=== PATIENT | male | born 1945 | race Caucasian/White ===

== ENCOUNTER 2018-03-02 08:48 | Inpatient (IN) | payer OTHER, MEDICARE ==
[2018-03-02 09:00] VITALS: BMI 32.1
--- NOTE | 2018-03-02 09:02 | PDOC ---
History of Present Illness - General Stated Complaint: Weakness Time Seen by Provider: 03/02/18 08:52 History Source: Patient, EMS, Significant Other Exam Limitations: No Limitations - History of Present Illness Initial Comments: 03/02/18 08:56 72YOM with h/o pre-diabetes and gout, who was BIBEMS from home where his girlfriend found him on the floor next to his bed with slightly labored breathing at around 7 am. History is difficult to obtain because the patient is confused about timing, and his girlfriend is at bedside to corroborate the story. He has been feeling ill for the past day or so, with malaise, generalized weakness, SOB; took Mucinex yesterday afternoon and within a couple of hours was feeling much worse. Yesterday night at about 10-11 pm the girlfriend noticed that the patient was trying to come back to bed from the bathroom, and could not get himself into bed initially. The patient states he was feeling weak, both legs and both arms. He was reportedly eventually able to get into the bed, but at some point in the cook helper the patient tried to stand up from bed again to use the bathroom, his legs gave out from under him, and he ended up on the floor with his head between the bed and the night stand. He denies LOC, hitting his head, hurting his neck, or otherwise injuring himself at all; in fact, he is denying having fallen. At 7 am the was awakened by labored breathing and she found him laying on the floor with a puddle of urine next to him, with labored breathing. She helped him up and they called 911. The patient states that after the fall, he had mildly decreased sensation on the RLE, but this has since resolved. He denies any pain to any portion of his body. States he has been feeling warm for the past 5 months but this is not new. States he only feels generally weak, otherwise denies any symptoms at all. Past History - Past Medical History Allergies/Adverse Reactions: Allergies Allergy/AdvReac Type Severity Reaction Status Date / Time No Known Allergies Allergy Verified 03/02/18 08:52 Home Medications: Ambulatory Orders Indomethacin 50 mg PO PRN 03/02/18 Review of Systems - Review of Systems Able to Perform ROS?: Yes Comments:: 03/02/18 09:09 GEN: generalized weakness, malaise, no fever, chills, or weight change HEENT: no ear pain, sore throat, vision change, or eye pain CV: no chest pain, palpitations, lightheadedness, syncope, or edema RESP: no cough, wheezing, or SOB GI: no abdominal pain, nausea, vomiting, diarrhea, constipation, or white/black/ bloody stool : no dysuria, hematuria, incontinence, retention, bleeding, or discharge MSK: no neck/back pain, muscle weakness/pain, or joint swelling/pain NEURO: RLE numbness (resolved), no headache, seizure, vertigo, imbalance, tingling, or focal weakness PSYCH: no substance use, no behavior change SKIN: no jaundice, no rash ROS otherwise negative except as noted in HPI *Physical Exam - Vital Signs Initial Vital Signs Temp Pulse Resp BP Pulse Ox 102.5 F H 70 18 149/77 91 L 03/02/18 08:50 03/02/18 08:50 03/02/18 08:50 03/02/18 08:50 03/02/18 08:50 - Physical Exam Comments: 03/02/18 09:11 GENERAL: a bit ill-appearing, flushed face, A/Ox4, no distress, answers questions appropriately, no outward e/o trauma HEENT: no obvious facial deformity, no cephalohematoma, no scalp laceration, no raccoon eyes, no proptosis, PERRLA, EOMI without pain, no nasal septal hematoma , no obvious CSF rhinorrhea, no epistaxis, no jaw malocclusion, no loose teeth, no ansari sign, no hemotympanum, no obvious CSF otorrhea, moist mucous membranes NECK/BACK: no midline ttp, no spinal stepoff or deformity, no hematoma, full ROM , neck supple CARDIOVASCULAR: regular rate/rhythm, normal S1S2, no MGR, strong peripheral pulses, capillary refill <2 seconds, extremities wwp, no edema CHEST WALL: no bruising, no costal ttp or stepoff or deformity LUNGS/RESPIRATORY: no respiratory distress, though slightly tachypneic in conversation GI/ABDOMEN: symmetric [id number], normoactive BS, soft, no ttp, no midline pulsatile masses : no CVA tenderness EXTREMITIES: no muscle atrophy, no acute deformity SKIN: warm and dry, no pallor, no jaundice, no rash, no bruising, no skin breakdown, no cuts, no lesions NEUROLOGICAL: NIHSS 2 only because BLE drift, GCS 15, CN II-XII grossly intact, 4/5 strength diffusely proximally, no facial droop, gait not tested, rectal exam with good tone NIH Stroke Scale - Last Known Well Date/Time & Onset Date Last Known Well: 03/02/18 Time Last Known Well: 22:00 - Initial Evaluation Level of consciousness: Alert Ask patient the month and their age: Answers both correctly Ask patient to open & close eyes; make fist and let go: Obeys both correctly Best gaze (horizontal eye movement): Normal Visual field testing: No visual field loss Facial paresis (Show teeth/raise eyebrows/close eyes tight): Normal symmetrical movement Motor Function: Left Arm: Normal Motor Function: Right Arm: Normal (extends arm 90 (or 45) degrees for 10 seconds without drift Motor Function: Left Leg: Drift Motor Function: Right Leg: Drift Limb Ataxia: No ataxia Sensory(Use pinprick test arms,legs,trunk,face/side to side): Normal Best language (Describe picture, name items, read sentences): No Aphasia Dysarthria (read several words): Normal articulation Extinction and Inattention: No abnormality - Total Score NIH Stroke Scale Score: 2 tPA Exclusion checklist 3-4.5h - Time Elapsed Date last known well: 03/02/18 Time last known well: 22:00 Elaspsed time: Day(s) and Hour(s) and -191 Minutes - Thrombolytic Therapy Candidate Is patient eligible for thrombolytic therapy: No - Exclusion Criteria 3-4.5 hr SBP greater than 185 or DBP greater than 110mmHg despite tx: No Recent IC/spinal surgery,head trauma or stroke<3mos.: No Hx IC hemorrhage, IC neoplasm, AV malformation or aneurysm: No Active internal bleeding: No Blding diathesis(low plt ct, inc PTT,INR>1.7 or use of NOAC): No Symptoms suggest subarachnoid hemorrhage: No CT demonstrates multilobar infarct(>1/3 cerebral hemiphere): No Arterial puncture at noncompressible site in previous 7 days: No Blood glucose concentration less than 50mg/dL (2.7mmol/L): No - Relative Exclusion Criteria 3-4.5 hr Life expectancy <1 yr or severe co-morbid illness: No : No Patient/family refused: No Rapid improvement: Yes Stroke severity too mild: Yes Recent acute MO (w/in previous 3 months): No Seizure at onset with postictal residual neuro impairments: No Major surgery or serious trauma w/in previous 14 days: No Recent GI or hemorrhage (w/in previous 21 days): No - Add'l Relative Exclusion 3-4.5 hr Age > 80: No Hx of both diabetes AND prior ischemic stroke: No Taking an oral anticoagulant regardless of INR: No NIHSS >25: No - Ineligibility reason(s) Reasons No tPA given: Outside of window - delayed arrival Heart Score/ECG Review #1 03/02/18 09:20 Sinus rhythm, rate 70, 1st degree AV block, RBBB, no ischemic ST-T changes. Critical Care Time/MDM Note - Medical Decision Making Note: 03/02/18 09:02 Pt p/w fall, generalized weakness, malaise. Initial Vital Signs Temp Pulse Resp BP Pulse Ox 102.5 F H 70 18 149/77 91 L 03/02/18 08:50 03/02/18 08:50 03/02/18 08:50 03/02/18 08:50 03/02/18 08:50 Exam: As noted in Physical Exam section. DDX IBNLT: influenza, other viral syndrome, PNA, bronchitis, UTI, cellulitis; could have had syncopal episode vs. seizure, injury suffered could be simple contusions, sprains/strains, bony injuries, internal organ contusions, ICH, facial bone or basilar skull fxr, etc. W/U ordered: Head and C-spine CT TX ordered: [facility] EKG: Reviewed; results as noted in ECG Review section. Laboratory Tests 03/02/18 03/02/18 03/02/18 08:58 08:58 08:58 WBC 5.3 RBC 3.48 L Hgb 11.8 Hct 34.3 L MCV 98.4 H MCH 33.9 H MCHC 34.5 RDW 14.7 Plt Count 127 L MPV 8.5 Absolute Neuts (auto) 4.1 Neutrophils % 78.1 Lymphocytes % 8.9 Monocytes % 12.0 H Eosinophils % 0.4 Basophils % 0.6 Nucleated RBC % 0 VBG pH POC VBG pCO2 POC VBG pO2 Mixed VBG HCO3 Sodium 136 Potassium 3.8 Chloride 106 Carbon Dioxide 25 Anion Gap 6 L BUN 15 Creatinine 1.1 Creat Clearance w eGFR > 60 Random Glucose 125 H Lactic Acid 1.5 Calcium 8.3 L Total Bilirubin 0.6 AST 31 ALT 31 Alkaline Phosphatase 193 H Creatine Kinase 119 CK-MB (CK-2) 2.4 Troponin I 0.87 H* Total Protein 6.8 Albumin 3.2 L Urine Color Urine Appearance Urine pH Ur Specific [place] Urine Protein Urine Glucose (UA) Urine Ketones Urine Blood Urine Nitrite Urine Bilirubin Urine Urobilinogen Ur Leukocyte Esterase Urine WBC (Auto) Urine RBC (Auto) Ur Epithelial Cells Influenza A (Rapid) Influenza B (Rapid) 03/02/18 03/02/18 03/02/18 09:03 09:03 09:05 WBC RBC Hgb Hct MCV MCH MCHC RDW Plt Count MPV Absolute Neuts (auto) Neutrophils % Lymphocytes % Monocytes % Eosinophils % Basophils % Nucleated RBC % VBG pH 7.43 H POC VBG pCO2 39.8 POC VBG pO2 33.7 Mixed VBG HCO3 25.9 H Sodium Potassium Chloride Carbon Dioxide Anion Gap BUN Creatinine Creat Clearance w eGFR Random Glucose Lactic Acid Calcium Total Bilirubin AST ALT Alkaline Phosphatase Creatine Kinase CK-MB (CK-2) Troponin I Cancelled Total Protein Albumin Urine Color Urine Appearance Urine pH Ur Specific [place] Urine Protein Urine Glucose (UA) Urine Ketones Urine Blood Urine Nitrite Urine Bilirubin Urine Urobilinogen Ur Leukocyte Esterase Urine WBC (Auto) Urine RBC (Auto) Ur Epithelial Cells Influenza A (Rapid) Positive A Influenza B (Rapid) Negative 03/02/18 09:10 WBC RBC Hgb Hct MCV MCH MCHC RDW Plt Count MPV Absolute Neuts (auto) Neutrophils % Lymphocytes % Monocytes % Eosinophils % Basophils % Nucleated RBC % VBG pH POC VBG pCO2 POC VBG pO2 Mixed VBG HCO3 Sodium Potassium Chloride Carbon Dioxide Anion Gap BUN Creatinine Creat Clearance w eGFR Random Glucose Lactic Acid Calcium Total Bilirubin AST ALT Alkaline Phosphatase Creatine Kinase CK-MB (CK-2) Troponin I Total Protein Albumin Urine Color Ltyellow Urine Appearance Clear Urine pH 6.0 Ur Specific [place] 1.015 Urine Protein 1+ H Urine Glucose (UA) Negative Urine Ketones 1+ H Urine Blood 2+ H Urine Nitrite Negative Urine Bilirubin Negative Urine Urobilinogen 4.0 e.u/dl Ur Leukocyte Esterase Negative Urine WBC (Auto) 1 Urine RBC (Auto) 2 Ur Epithelial Cells Rare Influenza A (Rapid) Influenza B (Rapid) Reassessment: Patient states feels a bit better after Ofirmev. I have placed order for IVF. RAD/CHEST X-RAY PORTABLE* Sepsis. Semierect portable chest x-ray. Comparison study. None. Patient is rotated to the left side. Cardiomegaly. Left lower lung zone obscured by the cardiac silhouette. No airspace opacities seen in the left upper lung zone, right lung. The right diaphragm is not effaced. No evidence of blunting of the right costophrenic angle. No pneumothorax, or large pleural effusion is seen. Impression. Cardiomegaly. Left lower lung zone obscured by the cardiac silhouette. No airspace opacities are seen in the left upper lung zone, right lung. No evidence of vascular congestive changes. CT/HEAD CT (STROKE) [id number] CT/CERVICAL SPINE CT W/O CONTR Status post fall with weakness CT scan of the head without intravenous contrast No prior is available for comparison. There is moderate volume loss, ventricular dilatation and periventricular chronic microvascular ischemic disease changes. No mass lesion, gross acute infarct or intracranial hemorrhage are identified. There is no shift of the midline structures The craniocervical junction appears unremarkable. Normal sized pituitary gland. Mild mucosal thickening in the maxillary antra with a small air-fluid level in the left. The mastoid air cells are well aerated and the calvarium is intact IMPRESSION: Moderate volume loss and ventricular dilatation without gross evidence of acute intracranial pathology. Correlate clinically to determine further evaluation and follow-up CT scan of the cervical spine without intravenous contrast Coronal and sagittal reconstruction images were obtained. There is straightening of the cervical spine. No gross fracture, subluxation or prevertebral soft tissue swelling is seen. No jumped facets are identified. C4-C5 mild degenerative disc disease with slightly prominent left anterior spondylosis. C5-C6 mild degenerative disc disease and mild anterior spondylosis Visualized portion of the airway appears unremarkable. No gross enlarged lymph nodes are identified. Multiple small to moderate-sized plaques at the left common carotid bifurcation and tiny plaque on the right. Lung windows at the thoracic inlet appear unremarkable. IMPRESSION : Straightening of the cervical spine. The alignment is satisfactory. No gross fracture or subluxation is seen. Mild degenerative disc disease at C4-C5 and C5- C6 level with anterior spondylosis and without gross evidence of disc herniation. Correlate clinically to determine further evaluation. Small to moderate size calcified plaque at the left common carotid bifurcation and tiny plaque on the right. 03/02/18 11:20 The Pt is unsafe for discharge at this time. They require further hospital observation, workup, and treatment. PCP is Margaret, goes to hospitalist. Microblog sent to [facility] for admission. Blank Decision to Admit order is placed per ED protocol. 03/02/18 11:40 I have spoken with Saji Yepez; patient admitted to Tele. Decision to Admit order corrected. Repeat troponin is 0.88. *DC/Admit/Observation/Transfer Diagnosis at time of Disposition: Influenza A, Fall from ground level, Elevated troponin - Discharge Dispostion Condition at time of disposition: Guarded Decision to Admit order: Yes - Referrals - Patient Instructions - Post Discharge Activity
[2018-03-02] MEDS ORDERED: ACETAMINOPHEN 1000 MG/100 ML VIAL (NON FORMULARY) IVPB ONE (09:11)
[2018-03-02] MEDS ORDERED: ACETAMINOPHEN INJECTION 100 ML IVPB ONE (09:12)
[2018-03-02 09:18] LABS: VENOUS PC02 39.8 mmHg (38-52); VENOUS PH 7.43 (7.32-7.42)
[2018-03-02 09:19] LABS: VENOUS PO2 33.7 mmHg (28-48)
[2018-03-02 09:27] LABS: BASO % 0.6 % (0-2.0); EOS % 0.4 % (0-4.5); HEMATOCRIT 34.3 % (35.4-49); HEMOGLOBIN 11.8 GM/dL (11.7-16.9); LYMPH % 8.9 % (8-40); MCH 33.9 pg (25.7-33.7); MCHC 34.5 g/dl (32.0-35.9); MEAN CELL VOLUME 98.4 fl (80-96); MEAN PLT VOLUME 8.5 fl (7.5-11.1); NEUT % 78.1 % (42.8-82.8); PLATELET COUNT 127 K/MM3 (134-434); RBC 3.48 M/mm3 (4.00-5.60); RDW 14.7 % (11.9-15.9); WHITE BLOOD COUNT 5.3 K/mm3 (4.0-10.0)
[2018-03-02 09:31] LABS: URINE APPEARANCE CLEAR; URINE BILIRUBIN NEGATIVE (<2.0 mg/dL); URINE COLOR LTYELLOW; URINE GLUCOSE (UA) NEGATIVE (NEGATIVE); URINE KETONE 1+ (NEGATIVE); URINE LEUK ESTERASE NEGATIVE (NEGATIVE); URINE NITRITE NEGATIVE (NEGATIVE); URINE PROTEIN 1+ (NEGATIVE); URINE UROBILINOGEN 4.0 E.U/dl mg/dL (0.2-1.0)
[2018-03-02 09:34] LABS: EPI CELLS RARE /HPF (FEW)
[2018-03-02 10:21] LABS: ALBUMIN 3.2 g/dl (3.4-5.0); ALK PHOS 193 U/L (45-117); ANION GAP 6 MMOL/L (8-16); BILIRUBIN,TOTAL 0.6 mg/dL (0.2-1); BLOOD UREA NITROGEN 15 mg/dL (7-18); CALCIUM 8.3 mg/dL (8.5-10.1); CHLORIDE 106 mmol/L (98-107); CO2 25 mmol/L (21-32); CREATININE 1.1 mg/dL (0.55-1.3); GLUCOSE,RANDOM 125 mg/dL (74-106); POTASSIUM 3.8 mmol/L (3.5-5.1); SGOT/AST 31 U/L (15-37); SGPT/ALT 31 U/L (13-61); SODIUM 136 mmol/L (136-145); TOT PROT 6.8 g/dl (6.4-8.2)
[2018-03-02] MEDS ORDERED: OSELTAMIVIR PHOSPHATE 75 MG CAPSULE PO ONE (10:33)
[2018-03-02] MEDS ORDERED: ASPIRIN 81 MG CHEWABLE TABLETS PO ONE (10:33)
--- NOTE | 2018-03-02 10:37 | PDOC ---
Attending Attestation - Resident Resident Name: Yoko Zamarripa - ED Attending Attestation I have performed the following: I have examined & evaluated the patient, The case was reviewed & discussed with the resident, I agree w/resident's findings & plan, Exceptions are as noted - HPI HPI: 03/02/18 10:34 The patient is a 72 year old male with a significant past medical history of pre -diabetes and gout, who was BIBEMS from home after his girlfriend reportedly found him on the floor breathing heavily around 7am this morning. The girlfriend at bedside acts as partial historian as the patient is slightly confused about the timeline of events. The patient states he has been feeling generally ill with fatigue and generalized weakness since yesterday. He states he took Mucinex last night which did not offer relief. He states he felt weak last night and had difficulty getting into his bed. He states that when he woke up this morning his legs gave out from under him, landing him on the floor, however, the patient denies falling. The patient denies head trauma or LOC. The girlfriend states she found him on the floor with labored breathing, surrounded by a puddle of his urine prompting the EMS call and ED visit today. The patient denies chest pain,headache and dizziness. The patient denies fever, chills, nausea, vomit, diarrhea and constipation. The patient denies dysuria, frequency, urgency and hematuria. Allergies: NKDA PCP - Dr. Yoon - Physicial Exam PE: 03/02/18 10:36 GENERAL: Awake, alert, and fully oriented, in no acute distress. HEAD: No signs of trauma EYES: PERRLA, EOMI, sclera anicteric, conjunctiva clear ENT: Auricles normal inspection, hearing grossly normal, nares patent, oropharynx clear without exudates. Moist mucosa NECK: Nontender, no stepoffs, Normal ROM, supple, no lymphadenopathy, JVD, or masses LUNGS: Breath sounds equal, clear to auscultation bilaterally. No wheezes, and no crackles HEART: Regular rate and rhythm, normal S1 and S2, no murmurs, rubs or gallops ABDOMEN: Soft, nontender, normoactive bowel sounds. No guarding, no rebound. No masses EXTREMITIES: Normal range of motion, no edema. No clubbing or cyanosis. No cords, erythema, or tenderness NEUROLOGICAL: Cranial nerves II through XII intact. 5/5 strength and sensation in all extremities, Normal speech, normal gait, normal cerebellar function SKIN: Warm, Dry, normal turgor, no rashes or lesions noted. - Critical Care Time Total Critical Care Time: 60 Critical Care Statement: The care of this patient involved high complexity decision making to prevent further life threatening deterioration of the patient 's condition and/or to evaluate & treat vital organ system(s) failure or risk of failure. - Medical Decision Making 03/02/18 10:36 72 M with weakness and fall, found to be febrile in ED. No signs of trauma on exam but given age will obtain CT imaging. Pt with no focal infectious symptoms on exam but mildly hypoxic in ED. Suspect PNA vs flu. - Labs, cultures - CXR, UA - IVF, tylenol 03/02/18 10:37 Flu + CXR clear Pt with + troponin 0.87, likely demand 2/2 sepsis EKG with no acute ischemic changes Will administer aspirin Tamiflu given <Ou,Marvel - Last Filed: 03/02/18 10:37> - Medical Decision Making EXAM#: TYPE/EXAM: RESULT: [id number] RAD/CHEST X-RAY PORTABLE* Sepsis. Semierect portable chest x-ray. Comparison study. None. Impression: Cardiomegaly. Left lower lung zone obscured by the cardiac silhouette. No airspace opacities are seen in the left upper lung zone, right lung. No evidence of vascular congestive changes. Reported By: Kevin Yung MD 03/02/18 1013 EXAM#: TYPE/EXAM: RESULT: [id number] CT/HEAD CT (STROKE) [id number] CT/CERVICAL SPINE CT W/O CONTR Status post fall with weakness CT scan of the head without intravenous contrast IMPRESSION: Moderate volume loss and ventricular dilatation without gross evidence of acute intracranial pathology. Correlate clinically to determine further evaluation and follow-up CT scan of the cervical spine without intravenous contrast IMPRESSION: Straightening of the cervical spine. The alignment is satisfactory. No gross fracture or subluxation is seen. Mild degenerative disc disease at C4-C5 and C5-C6 level with anterior spondylosis and without gross evidence of disc herniation. Correlate clinically to determine further evaluation. Small to moderate size calcified plaque at the left common carotid bifurcation and tiny plaque on the right. Reported By: Nicholas Davidson MD 03/02/18 1047 Documentation prepared by Chary Ortega, acting as medical terminologist for Marvel Romano MD. <Chary Ortega - Last Filed: 03/02/18 11:26>
[2018-03-02] MEDS ORDERED: OSELTAMIVIR PHOSPHATE 75 MG CAPSULE ONE (10:39)
[2018-03-02] MEDS ORDERED: ASPIRIN 81 MG CHEWABLE TABLETS ONE (10:39)
[2018-03-02] MEDS ORDERED: ACETAMINOPHEN 1000 MG/100 ML VIAL (NON FORMULARY) IVPB PRN (11:44)
[2018-03-02 11:59] LABS: BASO % 0.7 % (0-2.0); EOS % 0.3 % (0-4.5); HEMATOCRIT 31.9 % (35.4-49); HEMOGLOBIN 11.2 GM/dL (11.7-16.9); LYMPH % 11.7 % (8-40); MCH 34.1 pg (25.7-33.7); MCHC 35.2 g/dl (32.0-35.9); MEAN CELL VOLUME 96.9 fl (80-96); MONO % 12.2 % (3.8-10.2); NEUT % 75.1 % (42.8-82.8); PLATELET COUNT 119 K/MM3 (134-434); RBC 3.29 M/mm3 (4.00-5.60); RDW 14.7 % (11.9-15.9); WHITE BLOOD COUNT 5.2 K/mm3 (4.0-10.0)
[2018-03-02 12:08] LABS: INR 1.23 (0.83-1.09); PROTHROMBIN TIME (PATIENT) 14.5 SEC (9.7-13.0)
[2018-03-02 12:10] LABS: ACTIVATED PTT 34.9 SECONDS (25.2-36.5)
--- NOTE | 2018-03-02 12:18 | PN ---
Teaching Attending Note Name of Resident: Andrae Yepez ATTENDING PHYSICIAN STATEMENT I saw and evaluated the patient. I reviewed the resident's note and discussed the case with the resident. I agree with the resident's findings and plan as documented. SUBJECTIVE: Patient is a 72yo male with PMHx of pre-diabetes and gout who presents c/o having cough for one week. Patient felt weak around 7am this morning and slowly sat down on the floor. without hitting his head. Patient states that for the past week ,he has been experiencing general malaise, subjective fevers, weakness , and increased work of breathing. Came in to ED. for further evaluation. OBJECTIVE: Vital Signs Temperature 102.5 F H 03/02/18 09:33 Pulse Rate 70 03/02/18 08:50 Respiratory Rate 18 03/02/18 08:50 Blood Pressure 149/77 03/02/18 08:50 O2 Sat by Pulse Oximetry (%) 97 03/02/18 09:33 GENERAL: NAD, awake, alert, and fully oriented, with mask on HEENT: Nc/AT, structural intact, ALIZE, sclera anicteric, nasal skin hyperpigmentation noted, dry mucosa. NECK: Structurally intact, no JVD, soft. LUNGS: Good inspiratory effort with minimal expiratory wheezes bilaterally. no crackles. No accessory muscle use. On 2LNC @ 97% HEART: RRR, normal S1 and S2 without murmur ABDOMEN: Soft, NT/ND, normoactive bowel sounds, no guarding, no suprapubic tenderness MUSCULOSKELETAL: No CVA tenderness. EXTREMITIES: 2+ DP pulses, warm, No peripheral edema. NEUROLOGICAL: golf cart mechanic II-XII intact. Strength 5/5 in all upper extremity areas, strength 4/5 bilaterally in lower extremities. PSYCHIATRIC: Cooperative. Good eye contact. Appropriate mood and affect. SKIN: Warm, dry, clear scaling skin b/l in lower extremities with chronic venous stasis changes noted. CBCD WBC 5.2 K/mm3 (4.0-10.0) 03/02/18 11:36 RBC 3.29 M/mm3 (4.00-5.60) L 03/02/18 11:36 Hgb 11.2 GM/dL (11.7-16.9) L 03/02/18 11:36 Hct 31.9 % (35.4-49) L 03/02/18 11:36 MCV 96.9 fl (80-96) H 03/02/18 11:36 MCHC 35.2 g/dl (32.0-35.9) 03/02/18 11:36 RDW 14.7 % (11.9-15.9) 03/02/18 11:36 Plt Count 119 K/MM3 (134-434) L 03/02/18 11:36 MPV 8.0 fl (7.5-11.1) 03/02/18 11:36 CMP Sodium 136 mmol/L (136-145) 03/02/18 08:58 Potassium 3.8 mmol/L (3.5-5.1) 03/02/18 08:58 Chloride 106 mmol/L (98-107) 03/02/18 08:58 Carbon Dioxide 25 mmol/L (21-32) 03/02/18 08:58 Anion Gap 6 MMOL/L (8-16) L 03/02/18 08:58 BUN 15 mg/dL (7-18) 03/02/18 08:58 Creatinine 1.1 mg/dL (0.55-1.3) 03/02/18 08:58 Creat Clearance w eGFR > 60 (>60) 03/02/18 08:58 Random Glucose 125 mg/dL (74-106) H 03/02/18 08:58 Calcium 8.3 mg/dL (8.5-10.1) L 03/02/18 08:58 Total Bilirubin 0.6 mg/dL (0.2-1) 03/02/18 08:58 AST 31 U/L (15-37) 03/02/18 08:58 ALT 31 U/L (13-61) 03/02/18 08:58 Alkaline Phosphatase 193 U/L (45-117) H 03/02/18 08:58 Total Protein 6.8 g/dl (6.4-8.2) 03/02/18 08:58 Albumin 3.2 g/dl (3.4-5.0) L 03/02/18 08:58 CARDIAC ENZYMES Creatine Kinase 119 IU/L (26-308) 03/02/18 08:58 Troponin I Cancelled 03/02/18 09:03 Current Medications Generic Name Dose Route Start Last Admin Trade Name Freq PRN Reason Stop Dose Admin Acetaminophen 1,000 mg 03/02/18 11:44 Ofirmev Injection - IVPB Q6H PRN FEVER Oseltamivir Phosphate 75 mg 03/02/18 22:00 Tamiflu - PO 03/07/18 21:59 BID [facility] Home Medications Medication Instructions Recorded Indomethacin 50 mg PO PRN 03/02/18 ECG - NSR @70bpm, RBBB morphology seen with 1st degree AV block, CT 220ms, QTc 464ms ASSESSMENT/PLAN: Patient is a 72 year old male with a PMHx of pre-DM and gout. Patient is admitted to the hospital for having positive for Influenza A and was found to have elevated troponin. # Influenza A infection, ID on th case, On Tamiflu 75mg bid x 5 days # Elevated troponin, cardio on the case, Troponins are positive 0.87, 0.94. He denies chest pain. EKG NSR at 70 BPM with RBBB. Echocardiogram EF 50% with mild LAE, mild mr, mild TR, RVSP 30 - 40 mmHg, mild AI. Lovenox 100mg sq bid as per cardio. aspirin 81mg, coreg 3.125 mg PO BID # Mild myocarditis secondary to influenza vs NSTMI , will trend troponin, tele monitoring as per cardio will consider transferring to [facility] for a cardiac cath when stable from an influenza stand point DVt px; Lovenox
--- NOTE | 2018-03-02 12:23 | HP ---
<Andrae Yepez - Last Filed: 03/02/18 12:46> CHIEF COMPLAINT: shortness of breath PCP: Dr. Yoon HISTORY OF PRESENT ILLNESS: 72M with history of reported pre-diabetes and gout who presents today after experienced increased work of breathing. Pt reports not being able to walk getting out of bed around 7am for which he slumped to the ground. Pt's girlfriend who confirms story reports that she found him slumped over the side of the bed in respiratory distress with loud audible wheezing. Pt states that for the past day he has been experiencing general malaise, subjective fevers, weakness, and increased work of breathing. He has had intermittant coughing bouts, but has not expectorated anything. Pt denies any sick contacts and reports he received his flu vaccination today. Pt also endorses L hand parasthesias described as intermittent tingling of his fingertips. He states he has had them for many years, however he used to be on B12 supplementation at home. He has not taken this supplementation in about 1 years or so since he thought his parasthesias had gone away. Pt denies any headaches, lightheadedness , head or neck pain, chest pain/discomfort, palpitations, abdominal pain, diarrhea, changes in upper extremity strength or mcfp sensation. In ED pt given tamiflu and noted to have elevated troponin Recent Travel: Denies PAST MEDICAL HISTORY: Gout Pre-diabetic (reportedly) PAST SURGICAL HISTORY: None Social History: Smoking: Former; quit over 40 years ago Alcohol: Occassional Drugs: None Lives at home with girlfriend, normally ambulatory and independent with advanced ADLs Family History: Noncontributory Allergies No Known Allergies Allergy (Verified 03/02/18 08:52) HOME MEDICATIONS: Home Medications Medication Instructions Recorded Indomethacin 50 mg PO PRN 03/02/18 REVIEW OF SYSTEMS As per HPI PHYSICAL EXAMINATION Vital Signs - 24 hr 03/02/18 03/02/18 08:50 09:33 Temperature 102.5 F H 102.5 F H Pulse Rate 70 Respiratory 18 Rate Blood Pressure 149/77 O2 Sat by Pulse 91 L 97 Oximetry (%) GENERAL: NAD, awake, alert, and fully oriented, with mask on HEENT: Nc/AT, structural intact, ALIZE, sclera anicteric, skin hyperpigmentation noted on nose, dry mucosa, no posterior oropharynx or buccal erythema/exudates NECK: Structurally intact, no JVD, soft. LUNGS: Good inspiratory effort with scant expiratory wheezes bilaterally. no crackles. No accessory muscle use. On 2LNC @ 97% HEART: RRR, normal S1 and S2 without murmur ABDOMEN: Soft, NT/ND, normoactive bowel sounds, no guarding, no suprapubic tenderness MUSCULOSKELETAL: No CVA tenderness. EXTREMITIES: 2+ DP pulses, warm, No peripheral edema. See SKIN NEUROLOGICAL: physician representative II-XII intact. Strength 5/5 in all upper extremity areas, strength 4/5 bilaterally in lower extremities. Sensation intact in both upper extremities' regions. Normal speech. Gait not observed PSYCHIATRIC: Cooperative. Good eye contact. Appropriate mood and affect. SKIN: Warm, dry, clear scaling skin b/l in lower extremities with chronic venous stasis changes noted. Laboratory Results - last 24 hr 03/02/18 03/02/18 08:58 08:58 WBC 5.3 RBC 3.48 L Hgb 11.8 Hct 34.3 L MCV 98.4 H MCH 33.9 H MCHC 34.5 RDW 14.7 Plt Count 127 L MPV 8.5 Absolute Neuts (auto) 4.1 Neutrophils % 78.1 Lymphocytes % 8.9 Monocytes % 12.0 H Eosinophils % 0.4 Basophils % 0.6 Nucleated RBC % 0 PT with INR INR PTT (Actin FS) VBG pH 7.43 POC VBG pCO2 POC VBG pO2 Mixed VBG HCO3 Sodium 136 Potassium 3.8 Chloride 106 Carbon Dioxide 25 Anion Gap 6 L BUN 15 Creatinine 1.1 Creat Clearance w eGFR > 60 Random Glucose 125 H Lactic Acid 1.5 Calcium 8.3 L Total Bilirubin 0.6 AST 31 ALT 31 Alkaline Phosphatase 193 H Creatine Kinase 119 CK-MB (CK-2) 2.4 Troponin I 0.87 H* Total Protein 6.8 Albumin 3.2 L Urine Color Urine Appearance Urine pH Ur Specific Hawley Urine Protein Urine Glucose (UA) Urine Ketones Urine Blood Urine Nitrite Urine Bilirubin Urine Urobilinogen Ur Leukocyte Esterase Urine WBC (Auto) Urine RBC (Auto) Ur Epithelial Cells Influenza A (Rapid) Positive Influenza B (Rapid) Negative Blood Type Antibody Screen ECG - NSR @70bpm, RBBB morphology seen with 1st degree AV block, RI 220ms, QTc 464ms ASSESSMENT/PLAN: Influenza A infection Elevated troponin Parasthesias --Flu A + with high fever of 102.5 --Supportive therapy + Tamiflu 75mg BID PO x5 days --Titrate off oxygen as tolerated; SpO2 >91% --elevated troponin likely demand, however must r/o other causes --Cardiac monitoring --Trend Troponin --ECG as above --Echo --Cardiology on board --Parasthesia most likely related to B12/folic acid deficiency given macrocyctic anemia and extermination supervisor nature --Physical therapy evaluation Fen: Fluids: Encourage PO for now Electrolyte abnormalities: None Nutrition: Diabetic PPX: DVT - Low risk GI - Not indicated Dispo: Observe on cardiac monitoring pending cardio eval; trend trops Case discussed with Dr. Clarke Yepez, DO - IM PGY-2 Visit type - Emergency Visit Emergency Visit: Yes ED Registration Date: 03/02/18 Care time: The patient presented to the Emergency Department on the above date and was hospitalized for further evaluation of their emergent condition. - New Patient This patient is new to me today: Yes Date on this admission: 03/02/18 - Critical Care Critical Care patient: No <Yumiko Crawley - Last Filed: 03/04/18 18:36> CHIEF COMPLAINT: PCP: HISTORY OF PRESENT ILLNESS: ER course was notable for: (1) (2) (3) Recent Travel: PAST MEDICAL HISTORY: PAST SURGICAL HISTORY: Social History: Smoking: Alcohol: Drugs: Family History: Allergies No Known Allergies Allergy (Verified 03/02/18 08:52) HOME MEDICATIONS: Home Medications Medication Instructions Recorded Indomethacin 50 mg PO PRN 03/02/18 Albuterol 0.083% Nebulizer Brittany 1 amp NEB Q4H PRN #1 amp 03/04/18 [Ventolin 0.083% Nebulizer Soln -] Aspirin Coated [Ecotrin -] 81 mg PO DAILY #30 tablet.ec 03/04/18 Atorvastatin Ca [Lipitor] 40 mg PO HS #30 tablet 03/04/18 Carvedilol [Coreg -] 3.125 mg PO BID #60 tablet 03/04/18 Cefuroxime Axetil [Ceftin -] 500 mg PO BID #10 tablet 03/04/18 Clopidogrel Bisulfate [Plavix -] 75 mg PO DAILY #30 tablet 03/04/18 Oseltamivir Phosphate [Tamiflu -] 75 mg PO DAILY #6 capsule 03/04/18 Sennosides [Senna -] 2 tab PO HS PRN #15 tablet 03/04/18 REVIEW OF SYSTEMS CONSTITUTIONAL: Absent: fever, chills, diaphoresis, generalized weakness, malaise, loss of appetite, weight change HEENT: Absent: rhinorrhea, nasal congestion, throat pain, throat swelling, difficulty swallowing, mouth swelling, ear pain, eye pain, visual changes CARDIOVASCULAR: Absent: chest pain, syncope, palpitations, irregular heart rate, lightheadedness , peripheral edema RESPIRATORY: Absent: cough, shortness of breath, dyspnea with exertion, orthopnea, wheezing, stridor, hemoptysis GASTROINTESTINAL: Absent: abdominal pain, abdominal distension, nausea, vomiting, diarrhea, constipation, melena, hematochezia GENITOURINARY: Absent: dysuria, frequency, urgency, hesitancy, hematuria, flank pain, genital pain MUSCULOSKELETAL: Absent: myalgia, arthralgia, joint swelling, back pain, neck pain SKIN: Absent: rash, itching, pallor HEMATOLOGIC/IMMUNOLOGIC: Absent: easy bleeding, easy bruising, lymphadenopathy, frequent infections ENDOCRINE: Absent: unexplained weight gain, unexplained weight loss, heat intolerance, cold intolerance NEUROLOGIC: Absent: headache, focal weakness or paresthesias, dizziness, unsteady gait, seizure, mental status changes, bladder or bowel incontinence PSYCHIATRIC: Absent: anxiety, depression, suicidal or homicidal ideation, hallucinations. PHYSICAL EXAMINATION Vital Signs - 24 hr 03/03/18 03/03/18 03/04/18 20:00 21:00 02:06 Temperature 98.6 F 98.7 F Pulse Rate 61 53 L Respiratory 20 18 Rate Blood Pressure 156/76 137/67 O2 Sat by Pulse 93 L Oximetry (%) 03/04/18 03/04/18 03/04/18 06:00 10:00 15:13 Temperature 97.8 F 98.2 F 97.8 F Pulse Rate 48 L 55 L 68 Respiratory 18 18 22 H Rate Blood Pressure 138/63 141/59 L 148/58 L O2 Sat by Pulse 94 L Oximetry (%) GENERAL: Awake, alert, and fully oriented, in no acute distress. HEAD: Normal with no signs of trauma. EYES: Pupils equal, round and reactive to light, extraocular movements intact, sclera anicteric, conjunctiva clear. No lid lag. EARS, NOSE, THROAT: Ears normal, nares patent, oropharynx clear without exudates. Moist mucous membranes. NECK: Normal range of motion, supple without lymphadenopathy, JVD, or masses. LUNGS: Breath sounds equal, clear to auscultation bilaterally. No wheezes, and no crackles. No accessory muscle use. HEART: Regular rate and rhythm, normal S1 and S2 without murmur, rub or gallop. ABDOMEN: Soft, nontender, not distended, normoactive bowel sounds, no guarding, no rebound, no masses. No hepatomegaly or splenomegaly. MUSCULOSKELETAL: Normal range of motion at all joints. No bony deformities or tenderness. No CVA tenderness. UPPER EXTREMITIES: 2+ pulses, warm, well-perfused. No cyanosis. No clubbing. No peripheral edema. LOWER EXTREMITIES: 2+ pulses, warm, well-perfused. No calf tenderness. No peripheral edema. NEUROLOGICAL: Cranial nerves II-XII intact. Normal speech. Normal gait. PSYCHIATRIC: Cooperative. Good eye contact. Appropriate mood and affect. SKIN: Warm, dry, normal turgor, no rashes or lesions noted, normal capillary refill. ASSESSMENT/PLAN:
[2018-03-02] MEDS ORDERED: ALBUTEROL SO4 0.083% IH SOL 2.5 MG/3 ML VIAL.NEB. NEB PRN (13:06)
--- NOTE | 2018-03-02 14:09 | EKG ---
Test Reason : Blood Pressure : / mmHG Vent. Rate : 070 BPM Atrial Rate : 070 BPM P-R Int : 220 ms QRS Dur : 132 ms QT Int : 430 ms P-R-T Axes : -12 -07 039 degrees QTc Int : 464 ms POOR DATA QUALITY, INTERPRETATION MAY BE ADVERSELY AFFECTED SINUS RHYTHM WITH 1ST DEGREE A-V BLOCK WITH OCCASIONAL PREMATURE VENTRICULAR COMPLEXES RIGHT BUNDLE BRANCH BLOCK ABNORMAL ECG NO PREVIOUS ECGS AVAILABLE Confirmed by LINDA BENITES, LYLA ([id number]) on 03/02/2018 2:08:48 PM Referred By: Confirmed By:LYLA MCKEON MD
[2018-03-02] MEDS ORDERED: ACETAMINOPHEN 325 MG TABLET (FP) PO PRN (14:43)
--- NOTE | 2018-03-02 15:18 | PN ---
Progress Note (short form) - Note Progress Note: ID CONSULT DICTATED ACUTE INFLUENZA A NEAR SYNCOPE ?ACS CONTINUE TAMIFLU 75MG PO BID X 5D ISOLATION CARDIOLOGY EVALUATION
--- NOTE | 2018-03-02 15:22 | ECHO ---
Version: 1 Name: ALONDRA PATEL Exam: Adult Echocardiogram Study Date: 03/02/2018, 1:36 PM Age: 72 Years MMode/2D Measurements & Calculations IVSd: 1.01 cm LVIDs: 3.6 cm LVIDd: 4.2 cm LVPWd: 1.15 cm LVOT diam: 1.98 cm Doppler Measurements & Calculations MV E max freddy: 67.4 cm/sec Med E/e': 11.1 MV A max freddy: 75.7 cm/sec Med Peak E' Freddy: 6.1 cm/sec MV E/A: 0.89 Lat E/e': 8.2 Lat Peak E' Freddy: 8.3 cm/sec MR max P.9 mmHg Ao max P.3 mmHg Ao V2 max: 134.7 cm/sec TR max freddy: 261.1 cm/sec TR max P.5 mmHg Left Ventricle Ejection Fraction = 50%. Right Ventricle The right ventricle is normal in size and function. Atria The left atrium is mildly dilated. Mitral Valve There is mild mitral valve thickening. There is no mitral valve stenosis. There is moderate mitral regurgitation. Tricuspid Valve The tricuspid valve is normal in structure and function. There is mild tricuspid regurgitation. Righ t ventricular systolic pressure is elevated at 30-40mmHg. Aortic Valve There is mild aortic sclerosis.;. No hemodynamically significant valvular aortic stenosis. Mild aort ic regurgitation. Pulmonic Valve The pulmonic valve is not well seen, but is grossly normal. There is no pulmonic valvular stenosis. Mild pulmonic valvular regurgitation. Great Vessels The aortic root is normal size. Pericardium/Pleura There is no pericardial effusion. Summary Statements Ejection Fraction = 50%. The right ventricle is normal in size and function. There is mild mitral valve thickening. There is moderate mitral regurgitation. There is mild tricuspid regurgitation. Right ventricular systolic pressure is elevated at 30-40mmHg. There is mild aortic sclerosis.; Mild aortic regurgitation. MD Goyal *Claudine 03/02/2018, 3:22 PM Ordering Physician: Andrae Yepez Performed By: Juanita Fisher
--- NOTE | 2018-03-02 15:57 | CON.CARD ---
Consult Consult Specialty:: Cardiology Reason for Consultation:: SOB. Positive troponins - History of Present Illness Chief Complaint: Slide off bed and couldn't get off the floor 2nde to weakness. History of Present Illness: This is a 72 year old male with a PMH of pre-DM and gout. Over the past 4 days he has been having CHARLES and generalized fatigue. At 7 am, he slide off his bed and was unable to get up off the floor. He did not lose consciousness and did not hit his head. He was found here to be influenza positive. Troponins are positive 0.87, 0.94. He denies chest pain. EKG NSR at 70 BPM with RBBB. Echocardiogram EF 50% with mild LAE, mild mr, mild TR, RVSP 30 - 40 mmHg, mild AI. - Alcohol/Substance Use Hx Alcohol Use: No - Smoking History Smoking history: Former smoker Have you smoked in the past 12 months: No Home Medications - Allergies Allergies/Adverse Reactions: Allergies Allergy/AdvReac Type Severity Reaction Status Date / Time No Known Allergies Allergy Verified 03/02/18 08:52 - Home Medications Home Medications: Ambulatory Orders Indomethacin 50 mg PO PRN 03/02/18 Vital Signs: Vital Signs Temperature 98.8 F 03/02/18 12:26 Pulse Rate 58 L 03/02/18 12:26 Respiratory Rate 16 03/02/18 14:47 Blood Pressure 129/59 L 03/02/18 12:26 O2 Sat by Pulse Oximetry (%) 96 03/02/18 14:47 Constitutional: Yes: No Distress HENT: Yes: WNL Neck: Yes: WNL Respiratory: Yes: Rhonchi (Bilateral scattered rhonchi) Gastrointestinal: Yes: Soft Cardiovascular: Yes: Regular Rate and Rhythm JVD: No Heart Sounds: Yes: S1, S2 (No MRHG) Extremities: Yes: WNL Edema: No (Venous stasis changes) Neurological: Yes: Alert, Oriented - Other Data Labs, Other Data: CBC, BMP 03/02/18 11:36 03/02/18 08:58 INR, PTT INR 1.23 (0.83-1.09) H 03/02/18 09:33 Troponin, BNP 03/02/18 03/02/18 03/02/18 08:58 09:03 14:30 Troponin I 0.87 H* Cancelled 0.94 H* Troponin, BNP 03/02/18 03/02/18 03/02/18 08:58 09:03 14:30 Troponin I 0.87 H* Cancelled 0.94 H* Assessment/Plan 72 year old male with a PMH of pre-DM and gout. Over the past 4 days he has been having CHARLES and generalized fatigue. At 7 am, he slide off his bed and was unable to get up off the floor. He did not lose consciousness and did not hit his head. He was found here to be influenza positive. Troponins are positive 0.87, 0.94. He denies chest pain. EKG NSR at 70 BPM with RBBB. Echocardiogram EF 50% with mild LAE, mild mr, mild TR, RVSP 30 - 40 mmHg, mild AI. Positive Troponins Possibly due to a mild myocarditis secondary to influenza verses a NSTEMI Would add aspirin and increase Lovenox to AC doses Would add low dose beta blockers COREG 3.125 mg PO BID Tamiflu 75 mg po BID Continue to follow enzyme trends Would add telemetry monitoring Will consider transferring to [facility] for a cardiac cath when stable from an influenza stand point
--- NOTE | 2018-03-02 16:25 | CONS ---
DATE OF CONSULTATION: 03/02/2018 HISTORY OF PRESENT ILLNESS: The patient is a 72-year-old male with a history of diabetes and gout, evaluated for acute influenza A. He was well until one day prior to admission when he developed profound weakness and malaise associated with shortness of breath. He had apparently slipped from the bed onto the floor and was unable to stand up. He complained of labored breathing and subjective fever. He was taken to the emergency room where his temperature was 102.5. A chest x-ray showed increased pulmonary vascular congestion. A rapid influenza swab was positive for influenza A. He was also noted to have elevated troponins and was transferred to the telemetry unit. The patient was started on Tamiflu. He reports clinical improvement since admission. He was unaware of any ill contacts or persons with influenza. He did not receive an influenza vaccine this year. He denies chest pain or shortness of breath at rest. No purulent sputum production or hemoptysis. PAST MEDICAL HISTORY: Positive for diabetes mellitus, gouty arthritis, morbid obesity. ALLERGIES: No known drug allergies. CURRENT MEDICATIONS: Tylenol, Lovenox, Ventolin, Tamiflu, Ecotrin. SOCIAL HISTORY: He lives at home in the community with his significant other. He is a former smoker. REVIEW OF SYSTEMS: Neurologic: As per HPI. Cardiac: As per HPI. Respiratory: As per HPI. Gastrointestinal: Negative for vomiting or diarrhea. Genitourinary: Negative for urinary tract infection. LABORATORY DATA: White count 5.2, 75 neutrophils, 11 lymphocytes, 12 monocytes. Hematocrit 31.9, platelet count 119. Urinalysis negative for leukocyte esterase. BUN 15, creatinine 1.1. PHYSICAL EXAMINATION: General: The patient is morbidly obese. Vital Signs: Temperature 98.8, pulse 58 and regular, blood pressure 129/59, respiratory rate 16 per minute. HEENT:: Sclerae anicteric. Heart: Heart sounds S1, S2. Lungs: Crepitations at the bases bilaterally. Abdomen: Soft, obese. He has a ventral hernia with questionable palpable foreign material. Extremities: Negative for edema, positive for venous stasis dermatitis of the lower extremities bilaterally. IMPRESSION: 1. Acute influenza A. 2. Near-syncope. 3. Rule out acute coronary syndrome. PLAN: 1. Continue Tamiflu 75 mg p.o. twice a day for a complete 5-day course. 2. Contact precautions. 3. Cardiology evaluation. 4. Follow up chest x-ray. Thank you for the kind referral. BARBARA TRACY M.D. [id number]
[2018-03-02] MEDS ORDERED: PT OWN MED DRAWER 7, Y5N ONE (22:43)
[2018-03-02] MEDS: CARVEDILOL 3.125 MG TABLET (FP) PO SCH (22:56)
[2018-03-02] MEDS: OSELTAMIVIR PHOSPHATE 75 MG CAPSULE PO SCH (22:56)
[2018-03-02] MEDS: ENOXAPARIN NA (PORCINE) 100 MG/1 ML DISP.SYRIN SQ SCH (22:56)
--- NOTE | 2018-03-03 02:32 | PN ---
Progress Note (short form) - Note Progress Note: Patient is feeling better with no acute distress, no shortness of breath, no nausea or vomiting, had fever overnight received tylenol. Vital Signs Temperature 99 F 03/03/18 06:00 Pulse Rate 62 03/03/18 06:00 Respiratory Rate 16 03/03/18 06:00 Blood Pressure 121/55 L 03/03/18 06:00 O2 Sat by Pulse Oximetry (%) 95 03/02/18 21:00 GENERAL: NAD, awake, alert, and fully oriented, with mask on HEENT: Nc/AT, structural intact, ALIZE, sclera anicteric, nasal skin hyperpigmentation. NECK: Structurally intact, no JVD, soft. LUNGS: GAE BL with minimal expiratory wheezes bilaterally. no crackles. No accessory muscle use. HEART: RRR, normal S1 and S2 without murmur ABDOMEN: Soft, NT/ND, normoactive bowel sounds, no guarding, no suprapubic tenderness MUSCULOSKELETAL: No CVA tenderness. EXTREMITIES: 2+ DP pulses, warm, No peripheral edema. NEUROLOGICAL: central supply assistant II-XII intact. PSYCHIATRIC: Cooperative. Good eye contact. Appropriate mood and affect. SKIN: Warm, dry, chronic venous stasis changes CBCD WBC 5.2 K/mm3 (4.0-10.0) 03/02/18 11:36 RBC 3.29 M/mm3 (4.00-5.60) L 03/02/18 11:36 Hgb 11.2 GM/dL (11.7-16.9) L 03/02/18 11:36 Hct 31.9 % (35.4-49) L 03/02/18 11:36 MCV 96.9 fl (80-96) H 03/02/18 11:36 MCHC 35.2 g/dl (32.0-35.9) 03/02/18 11:36 RDW 14.7 % (11.9-15.9) 03/02/18 11:36 Plt Count 119 K/MM3 (134-434) L 03/02/18 11:36 MPV 8.0 fl (7.5-11.1) 03/02/18 11:36 CMP Sodium 136 mmol/L (136-145) 03/02/18 08:58 Potassium 3.8 mmol/L (3.5-5.1) 03/02/18 08:58 Chloride 106 mmol/L (98-107) 03/02/18 08:58 Carbon Dioxide 25 mmol/L (21-32) 03/02/18 08:58 Anion Gap 6 MMOL/L (8-16) L 03/02/18 08:58 BUN 15 mg/dL (7-18) 03/02/18 08:58 Creatinine 1.1 mg/dL (0.55-1.3) 03/02/18 08:58 Creat Clearance w eGFR > 60 (>60) 03/02/18 08:58 Random Glucose 125 mg/dL (74-106) H 03/02/18 08:58 Calcium 8.3 mg/dL (8.5-10.1) L 03/02/18 08:58 Total Bilirubin 0.6 mg/dL (0.2-1) 03/02/18 08:58 AST 31 U/L (15-37) 03/02/18 08:58 ALT 31 U/L (13-61) 03/02/18 08:58 Alkaline Phosphatase 193 U/L (45-117) H 03/02/18 08:58 Total Protein 6.8 g/dl (6.4-8.2) 03/02/18 08:58 Albumin 3.2 g/dl (3.4-5.0) L 03/02/18 08:58 CARDIAC ENZYMES Creatine Kinase 119 IU/L (26-308) 03/02/18 08:58 Troponin I 0.65 ng/ml (0.00-0.05) H* 03/02/18 20:20 CARDIAC ENZYMES Creatine Kinase 119 IU/L (26-308) 03/02/18 08:58 Troponin I 0.65 ng/ml (0.00-0.05) H* 03/02/18 20:20 Current Medications Generic Name Dose Route Start Last Admin Trade Name Freq PRN Reason Stop Dose Admin Acetaminophen 650 mg 03/02/18 14:43 03/03/18 02:14 Tylenol - PO 650 mg Q4H PRN Administration FEVER Albuterol Sulfate 1 amp 03/02/18 13:06 Ventolin 0.083% Nebulizer Soln - NEB Q4H PRN SHORT OF BREATH/WHEEZING Aspirin 81 mg 03/03/18 10:00 Asa - PO DAILY CHUCHO Carvedilol 3.125 mg 03/02/18 22:00 03/02/18 22:56 Coreg - PO 3.125 mg BID CHUCHO Administration Enoxaparin Sodium 100 mg 03/02/18 22:00 03/02/18 22:56 Lovenox - SQ 100 mg BID CHUCHO Administration Oseltamivir Phosphate 75 mg 03/02/18 22:00 03/02/18 22:56 Tamiflu - PO 03/07/18 21:59 75 mg BID CHUCHO Administration Home Medications Medication Instructions Recorded Indomethacin 50 mg PO PRN 03/02/18 Laboratory Tests 03/02/18 03/02/18 03/02/18 08:58 14:30 20:20 Troponin I 0.87 H* 0.94 H* 0.65 H* ECG - NSR @70bpm, RBBB morphology seen with 1st degree AV block, TN 220ms, QTc 464ms ASSESSMENT/PLAN: Patient is a 72 year old male with a PMHx of pre-DM and gout. Patient is admitted to the hospital for having positive for Influenza A and was found to have elevated troponin. # Influenza A infection, ID on th case, On Tamiflu 75mg bid x 5 days continue, monitor for fever. # Elevated troponin, cardio on the case, Troponins are positive 0.87, 0.94--> 0.65, He denies chest pain. EKG NSR at 70 BPM with RBBB. Echocardiogram EF 50% with mild LAE, mild mr, mild TR, RVSP 30 - 40 mmHg, mild AI. Lovenox 100mg sq bid as per cardio. aspirin 81mg, coreg 3.125 mg PO BID # Mild myocarditis with mild elevation of troponin secondary to influenza vs NSTMI , will trend troponin, tele monitoring as per cardio will consider transferring to [facility] for a cardiac cath when stable from an influenza stand point DVt px; Lovenox Visit type - Emergency Visit Emergency Visit: Yes ED Registration Date: 03/02/18 Care time: The patient presented to the Emergency Department on the above date and was hospitalized for further evaluation of their emergent condition. - New Patient This patient is new to me today: No - Critical Care Critical Care patient: No - Discharge Referral Referred to [facility] Med [facility] No Physician Referral: Negrito Robles MD ([facility])
[2018-03-03 08:08] LABS: HEMATOCRIT 31.8 % (35.4-49); MCHC 34.5 g/dl (32.0-35.9); MEAN CELL VOLUME 98.5 fl (80-96); MEAN PLT VOLUME 8.8 fl (7.5-11.1); PLATELET COUNT 118 K/MM3 (134-434); RBC 3.23 M/mm3 (4.00-5.60); RDW 15.2 % (11.9-15.9); WHITE BLOOD COUNT 3.6 K/mm3 (4.0-10.0)
[2018-03-03 08:27] LABS: ANION GAP 9 MMOL/L (8-16); BLOOD UREA NITROGEN 19 mg/dL (7-18); CALCIUM 8.3 mg/dL (8.5-10.1); CHLORIDE 103 mmol/L (98-107); CO2 24 mmol/L (21-32); CREATININE 1.1 mg/dL (0.55-1.3); GLUCOSE,RANDOM 102 mg/dL (74-106); POTASSIUM 3.5 mmol/L (3.5-5.1); SODIUM 137 mmol/L (136-145)
[2018-03-03] MEDS ORDERED: ASPIRIN COATED 81 MG TABLET.EC PO SCH (10:00)
[2018-03-03] MEDS ORDERED: OSELTAMIVIR PHOSPHATE 75 MG CAPSULE PO SCH (10:00)
[2018-03-03] MEDS ORDERED: ENOXAPARIN NA (PORCINE) 40 MG/0.4 ML DISP.SYRIN SQ SCH (10:00)
[2018-03-03] MEDS ORDERED: PT OWN MED DRAWER 7, Y5N ONE ×2 (10:57→20:48)
[2018-03-03] MEDS: ASPIRIN 81 MG CHEWABLE TABLETS PO SCH (11:00)
[2018-03-03] MEDS: CARVEDILOL 3.125 MG TABLET (FP) PO SCH ×2 (11:00→21:26)
[2018-03-03] MEDS: OSELTAMIVIR PHOSPHATE 75 MG CAPSULE PO SCH ×2 (11:01→21:26)
[2018-03-03] MEDS: ENOXAPARIN NA (PORCINE) 100 MG/1 ML DISP.SYRIN SQ SCH ×2 (11:01→21:26)
--- NOTE | 2018-03-03 14:40 | PN ---
Progress Note, Physician Chief Complaint: The patient appears comfortable. He has improved SOB. He still feels weak and congested. He denies chest pain or palpitation. Tele shows sinus rhythm with mild bradycardia and VPCs. History of Present Illness: 72 year old obese man with a PMHx of pre-DM and gout admitted with CHARLES and generalized fatigue. He was found here to be influenza positive. Troponins are positive 0.87-> 0.94 ->0.65. He has no symptoms of angina. EKG NSR at 70 BPM with RBBB. Echocardiogram EF 50% with mild LAE, mild mr, mild TR, RVSP 30 - 40 mmHg, mild AI. Mr. Hebert was seen by Dr. Loera yesterday. Cardiac cath recommended. However, the patient does not want to have the procedure at this time. He was seen by a tow motor mechanic at [facility]. He would like to see her after discharge for further evaluation. - Current Medication List Current Medications: Active Medications Acetaminophen (Tylenol -) 650 mg PO Q4H PRN PRN Reason: FEVER Last Admin: 03/03/18 02:14 Dose: 650 mg Albuterol Sulfate (Ventolin 0.083% Nebulizer Soln -) 1 amp NEB Q4H PRN PRN Reason: SHORT OF BREATH/WHEEZING Aspirin (Asa -) 81 mg PO DAILY [facility] Last Admin: 03/03/18 11:00 Dose: 81 mg Carvedilol (Coreg -) 3.125 mg PO BID [facility] Last Admin: 03/03/18 11:00 Dose: 3.125 mg Enoxaparin Sodium (Lovenox -) 100 mg SQ BID [facility] Last Admin: 03/03/18 11:01 Dose: 100 mg Oseltamivir Phosphate (Tamiflu -) 75 mg PO BID [facility] Stop: 03/07/18 21:59 Last Admin: 03/03/18 11:01 Dose: 75 mg - Objective Vital Signs: Vital Signs Temperature 98.5 F 03/03/18 11:10 Pulse Rate 56 L 03/03/18 11:10 Respiratory Rate 18 03/03/18 11:10 Blood Pressure 122/55 L 03/03/18 11:10 O2 Sat by Pulse Oximetry (%) 94 L 03/03/18 09:00 General: Well developed. Obese. No acute distress. Head: Normocephalic. Atraumatic, Eyes: PERRLA, EOMI. Sclerae anicteric. Conjunctivae clear. Neck: Supple. No JVD. No bruits. Heart: Normal S1, S2: Regular rhythm and rate. No murmur. No gallop or rub. Lungs: Symmetrical air entry. No crackles. No wheezing or rhonchi. Abdomen: Soft. Bowel sound positive. Non tender. No masses. Extremities: Stasis. No edema. No clubbing or cyanosis. Labs: CBC, BMP 03/03/18 06:00 03/03/18 06:00 INR, PTT INR 1.23 (0.83-1.09) H 03/02/18 09:33 Assessment/Plan 72 year old obese man with a PMHx of pre-DM and gout admitted with CHARLES and generalized fatigue. He was found here to be influenza positive. Troponins are positive 0.87-> 0.94 ->0.65. He has no symptoms of angina. EKG NSR at 70 BPM with RBBB. Echocardiogram EF 50% with mild LAE, mild mr, mild TR, RVSP 30 - 40 mmHg, mild AI. Mrs. Hebert was seen by Dr. Loera yesterday. Cardiac cath recommended. However, the patient does NOT want to have the procedure at this time. He was seen by a tow motor mechanic at [facility]. He would like to see her after discharge for further evaluation. Positive Troponins: Possibly due to a mild myocarditis secondary to influenza verses a NSTEMI. Troponin is trending down now. No symptoms of angina. Conservative cardiac care since the pt refuses the recommended cardiac cath. Add Plavix 75 mg daily. Add atorvastatin 40 mg daily. Continue aspirin 81 mg daily. Continue Coreg 3.125 mg BID May discontinue Lovenox. Please call us for reconsult as needed.
[2018-03-04] MEDS ORDERED: SENNOSIDES 8.6MG TABLET (FP) PO PRN (06:30)
[2018-03-04] MEDS ORDERED: PT OWN MED DRAWER 7, Y5N ONE (09:44)
[2018-03-04] MEDS: OSELTAMIVIR PHOSPHATE 75 MG CAPSULE PO SCH (09:51)
[2018-03-04] MEDS: ASPIRIN 81 MG CHEWABLE TABLETS PO SCH (09:51)
[2018-03-04] MEDS: CARVEDILOL 3.125 MG TABLET (FP) PO SCH (09:52)
[2018-03-04] MEDS: ENOXAPARIN NA (PORCINE) 100 MG/1 ML DISP.SYRIN SQ SCH (09:52)
[2018-03-04] MEDS ORDERED: CLOPIDOGREL BISULFATE 75 MG TABLET (FP) PO SCH (13:00)
[2018-03-04 15:20] VITALS: BP 148/58; PULSE 68; TEMP 97.8
--- NOTE | 2018-03-04 16:53 | DS ---
Physical Exam: SUBJECTIVE: Patient seen and examined at bed side this morning. States he feels better. Agrees to follow up as outpatient OBJECTIVE: Vital Signs Period Temp Pulse Resp BP Sys/Cardona Pulse Ox Last 24 Hr 97.8 F-98.7 F 48-68 18-22 137-156/58-76 93-94 PHYSICAL EXAM GENERAL: NAD, awake, alert, and fully oriented, with mask on HEENT: Nc/AT, structural intact, ALIZE, sclera anicteric, skin hyperpigmentation noted on nose, dry mucosa, no posterior oropharynx or buccal erythema/exudates NECK: Structurally intact, no JVD, soft. LUNGS: Good inspiratory effort with scant expiratory wheezes bilaterally. no crackles. No accessory muscle use. On 2LNC @ 97% HEART: RRR, normal S1 and S2 without murmur ABDOMEN: Soft, NT/ND, normoactive bowel sounds, no guarding, no suprapubic tenderness MUSCULOSKELETAL: No CVA tenderness. EXTREMITIES: 2+ DP pulses, warm, No peripheral edema. See SKIN NEUROLOGICAL: spring maker II-XII intact. Strength 5/5 in all upper extremity areas, strength 4/5 bilaterally in lower extremities. Sensation intact in both upper extremities' regions. Normal speech. Gait not observed PSYCHIATRIC: Cooperative. Good eye contact. Appropriate mood and affect. SKIN: Warm, dry, clear scaling skin b/l in lower extremities with chronic venous stasis changes noted. LABS HOSPITAL COURSE: Date of Admission:03/02/18 Date of Discharge: 03/04/18 Minutes to complete discharge: 45 Discharge Summary Reason For Visit: INFLUENZA DUE TO INFLUENZA VIRUS, TYPE A HUMAN Current Active Problems Elevated troponin (Acute) Fall from ground level (Acute) Influenza A (Acute) Condition: Improved - Instructions Diet, Activity, Other Instructions: You were admitted to the hospital for shortness of breath and cough and was found to have Flu, treated with Tamiflu. You also had leaked enzymes from your heart called troponins, evaluated by cardiology and recommended you to go for catheterization for visualization of the vessels, however, you refused hence we managed conservatively with medications You also had positive urine culture indicating urinary tract infection. MEDICATIONS: 1. Added Aspirin 81 mg Per Oral Daily 2. Added Plavix 75 mg Per Oral Daily 3. Tamiflu 75 mg PO BID x 3 more days 4. Added Cored 3.125 mg PO twice a day 5. Cefuroxime 500 mg twice a day for 5 days for urinary tract infection. 6. Added Atorvastatin 40mg DIET: Low salt diet ACTIVITY: As tolerated FOLLOW UP With your franchise business consultant/Primary care physician in a week. It is very important you follow up with your franchise business consultant for possible catheterization. Referrals: Negrito Yoon MD [Staff Physician] - 1 Week Sarbjit Gutierrez MD [Staff Physician] - 1 Week Disposition: HOME - Home Medications Comprehensive Discharge Medication List: Ambulatory Orders Indomethacin 50 mg PO PRN 03/02/18 Albuterol 0.083% Nebulizer Brittany [Ventolin 0.083% Nebulizer Soln -] 1 amp NEB Q4H PRN #1 amp 03/04/18 Aspirin Coated [Ecotrin -] 81 mg PO DAILY #30 tablet.ec 03/04/18 Atorvastatin Ca [Lipitor] 40 mg PO HS #30 tablet 03/04/18 Carvedilol [Coreg -] 3.125 mg PO BID #60 tablet 03/04/18 Cefuroxime Axetil [Ceftin -] 500 mg PO BID #10 tablet 03/04/18 Clopidogrel Bisulfate [Plavix -] 75 mg PO DAILY #30 tablet 03/04/18 Oseltamivir Phosphate [Tamiflu -] 75 mg PO DAILY #6 capsule 03/04/18 Sennosides [Senna -] 2 tab PO HS PRN #15 tablet 03/04/18 - Discharge Referral Referred to [facility] No Physician Referral: Negrito Robles MD ([facility])
--- NOTE | 2018-03-04 18:40 | PN ---
Teaching Attending Note Name of Resident: Yumiko Crawley ATTENDING PHYSICIAN STATEMENT I saw and evaluated the patient. I reviewed the resident's note and discussed the case with the resident. I agree with the resident's findings and plan as documented. SUBJECTIVE: OBJECTIVE: ASSESSMENT AND PLAN: patient is stable cardiology consulted wanted to follow as an outpatient for stress test vs cardiac angiogram
--- NOTE | 2018-03-04 19:29 | EKG ---
Test Reason : Blood Pressure : / mmHG Vent. Rate : 066 BPM Atrial Rate : 066 BPM P-R Int : 230 ms QRS Dur : 126 ms QT Int : 442 ms P-R-T Axes : 001 007 063 degrees QTc Int : 463 ms SINUS RHYTHM WITH 1ST DEGREE A-V BLOCK WITH PREMATURE VENTRICULAR COMPLEXES VS. ABERRANTLY CONDUCTED COMPLEX RIGHT BUNDLE BRANCH BLOCK ABNORMAL ECG WHEN COMPARED WITH ECG OF 02-MAR-2018 09:18, NO SIGNIFICANT CHANGE WAS FOUND Confirmed by NABIL SANFORD MD ([id number]) on 03/04/2018 7:29:26 PM Referred By: Confirmed By:NABIL SANFORD MD
[2018-03-04] MEDS ORDERED: ATORVASTATIN CA 40 MG TABLET (FP) PO SCH (22:00)
[2018-03-04] MEDS ORDERED: CEFUROXIME AXETIL 500 MG TABLET PO SCH (22:00)
== END 2018-03-04 18:19 | disposition home or self-care (01) | DRG 193 ==
LOC: JER 08:48 → JERBED 11:22 → J4S 14:02
PROVIDERS: ADMIT Internal Medicine; ATTEND Internal Medicine
DX: J10.1 Influenza due to other identified influenza virus with other respiratory manifestations (principal); I21.4 Non-ST elevation (NSTEMI) myocardial infarction; N39.0 Urinary tract infection, site not specified; B96.4 Proteus (mirabilis) (morganii) as the cause of diseases classified elsewhere; I45.10 Unspecified right bundle-branch block; I44.0 Atrioventricular block, first degree; I51.4 Myocarditis, unspecified; M10.9 Gout, unspecified; D51.9 Vitamin B12 deficiency anemia, unspecified; R73.03 Prediabetes; E66.8 Other obesity; Z68.32 Body mass index [BMI] 32.0-32.9, adult
CPT/HCPCS: 36415; 70450-TC; 71045-TC-FY; 72125-TC; 80048; 80053; 81003; 81015; 82550; 82553; 82607; 82746; 82803; 82962; 83036; 83605; 84484; 85025; 85027; 85610; 85730; 86850; 86900; 86901; 87040; 87086; 87186; 87804; 93005; 93010; 93306-TC; 97116-GP; 99285-25; J0131

== ENCOUNTER 2019-04-21 14:36 | Inpatient (IN) | payer OTHER, MEDICARE ==
[2019-04-21 14:57] VITALS: BMI 31.4
--- NOTE | 2019-04-21 15:41 | PDOC ---
History of Present Illness - General Chief Complaint: Respiratory Stated Complaint: SOB/COUGHING/ACHES Time Seen by Provider: 04/21/19 15:04 History Source: Patient Exam Limitations: No Limitations - History of Present Illness Initial Comments: 73 yo M with a hx of CHF (50% LVEF), HTN, dysrhythmia, HLD, and gout presents to the emergency department with SOB, cough, and rhinorrhea. Per the patient, he has had these symptoms for the past month, however he developed worsening SOB at rest, waking up at night out of breath (but denies increasing requirement of pillows) for the past 1 week with development of myalgias today. The patient states his cough his non productive. Denies recent travels, recent sick contacts, or contacts with individuals who are from high risk countries for COVID-19. Denies the following: fevers, chills, headaches, nausea, vomiting, chest pain, back pain, dysuria, hematuria, diarrhea, and leg swelling. Allergies: NKDA Past History - Past Medical History Allergies/Adverse Reactions: Allergies Allergy/AdvReac Type Severity Reaction Status Date / Time No Known Allergies Allergy Verified 04/21/19 14:57 Home Medications: Ambulatory Orders Indomethacin 50 mg PO TID 03/02/18 Aripiprazole 5 mg PO DAILY 04/22/19 Apixaban [Eliquis -] 5 mg PO BID #60 tablet 04/26/19 Aspirin Coated [Ecotrin -] 81 mg PO DAILY tablet.ec 04/26/19 Atorvastatin Ca [Lipitor] 40 mg PO HS #30 tablet 04/26/19 Indomethacin [Indocin -] 50 mg PO TID capsule 04/26/19 COPD: No Other medical history: gout - Surgical History Abdominal Surgery: Yes (abdominal hernia repair) - Immunization History Immunization Up to Date: Yes - Psycho Social/Smoking Cessation Hx Smoking History: Never smoked Have you smoked in the past 12 months: No Hx Alcohol Use: No Drug/Substance Use Hx: No Substance Use Type: None, Alcohol Hx Substance Use Treatment: No Review of Systems - Review of Systems Able to Perform ROS?: Yes Is the patient limited Serbian proficient: No Constitutional: No: Chills, Diaphoresis, Fever, Weakness HEENTM: No: Eye Pain, Ear Pain, Nose Pain, Throat Pain, Mouth Pain Respiratory: Yes: Cough, Shortness of Breath, SOB with Exertion. No: Hemoptysis Cardiac (ROS): No: Chest Pain, Lightheadedness, Palpitations, Chest Tightness ABD/GI: No: Constipated, Diarrhea, Difficulty Swallowing, Nausea, Vomiting : No: Burning, Dysuria, Hematuria Musculoskeletal: No: Back Pain, Joint Pain, Neck Pain Integumentary: No: Bruising, Erythema, Rash Neurological: No: Headache, Numbness Psychiatric: No: Change in Appetite Endocrine: No: Unexplained Weight Gain, Unexplained Weight Loss Hematologic/Lymphatic: No: Anemia *Physical Exam - Vital Signs Last Vital Signs Temp Pulse Resp BP Pulse Ox 97.4 F L 62 20 130/100 87 L 04/21/19 14:53 04/21/19 14:53 04/21/19 14:53 04/21/19 14:53 04/21/19 14:53 - Physical Exam General Appearance: Yes: Nourished, Appropriately Dressed, Obese, Other (uncomfortable appearing. cyanosis noted on the palms, and nose). No: Apparent Distress, Mild Distress, Intoxicated HEENT: positive: EOMI, CONSTANZA, Normal Voice, Symmetrical, Pharynx Normal, Rhinorrhea, Hearing Grossly Normal. negative: Normal ENT Inspection (cyanotic lesion located on nose), Pale Conjunctivae, Scleral Icterus (R), Scleral Icterus (L), Muffled/Hoarse voice, Pharyngeal Erythema, Tonsillar Exudate, Tonsillar Erythema, Nasal Congestion, Excessive drooling Neck: positive: Trachea midline, Supple. negative: Tender, Lymphadenopathy (R), Lymphadenopathy (L), Tender lateral, Tender midline Respiratory/Chest: positive: Decreased Breath Sounds, Crackles, Rhonchi, Other (bilateral rhonchi, crackles, and decreased breath sounds). negative: Chest Tender, Lungs Clear, Normal Breath Sounds, Respiratory Distress, Accessory Muscle Use Cardiovascular: positive: Regular Rate, S1, S2, Systolic Murmur (grade 1), Irregularly Irregular Gastrointestinal/Abdominal: positive: Normal Bowel Sounds, Flat, Soft, Other (ventral hernia noted with hard stool; easily reduces). negative: Tender, Distended, Guarding, Rebound Lymphatic: negative: Adenopathy Musculoskeletal: positive: Normal Inspection. negative: CVA Tenderness, Vertebral Tenderness Extremity: positive: Normal Capillary Refill, Normal Range of Motion, Other (stasis dermatitis bilateral LE. ). negative: Normal Inspection (cyanosis noted on the palms and soles. telengiectasias noted. ), Tender, Swelling, Calf Tenderness Integumentary: positive: Dry, Warm Neurologic: positive: electric appliance installer II-XII NML intact, Fully Oriented, Alert, Normal Mood/Affect, Normal Response, Motor Strength 5/5. negative: Facial Droop, Sensory Deficit ED Treatment Course - LABORATORY CBC & Chemistry Diagram: 04/26/19 06:28 04/26/19 06:28 Medical Decision Making - Medical Decision Making 04/21/19 17:57 73 yo M with a hx of CHF (50% LVEF), HTN, dysrhythmia, HLD, and gout presents to the emergency department with SOB, cough, and rhinorrhea. Initial vitals; Initial Vital Signs Temp Pulse Resp BP Pulse Ox 97.4 F L 62 20 130/100 87 L 04/21/19 14:53 04/21/19 14:53 04/21/19 14:53 04/21/19 14:53 04/21/19 14:53 Work up'; patient presents to the emergency department with SOB in the setting of reduced EF% with cyanosis noted on the palms and nose. Concerns for CHF exacerbation. ddx includes CHF vs COPD exacerbation. Laboratory Tests 04/21/19 04/21/19 04/21/19 15:30 15:31 15:45 WBC 14.3 H RBC 4.42 Hgb 14.1 Hct 42.0 D MCV 95.0 MCH 31.9 MCHC 33.6 RDW 15.2 Plt Count 195 D MPV 8.5 Absolute Neuts (auto) 10.6 H Neutrophils % 73.8 Lymphocytes % 9.6 Monocytes % 6.2 Eosinophils % 9.6 H D Basophils % 0.8 Nucleated RBC % 0 PT with INR INR PTT (Actin FS) Anticoagulation Therapy No Result Required. Puncture Site No Result Required. ABG pH 7.46 H ABG pCO2 at Pt Temp 29.2 L ABG pO2 at Pt Temp 96 ABG HCO3 20.3 L ABG O2 Sat (Measured) 97.1 ABG O2 Content 18.9 ABG Base Excess -2.0 Mark Test No Result Required. Carboxyhemoglobin 1.4 Methemoglobin 1.0 Patient On Oxygen No Result Required. O2 Delivery Device No Result Required. Oxygen Flow Rate No Result Required. Vent Mode No Result Required. Vent Rate No Result Required. Mechanical Rate No Result Required. Pressure Support Vent No Result Required. Sodium Potassium Chloride Carbon Dioxide Anion Gap BUN Creatinine Est GFR (CKD-EPI)AfAm Est GFR (CKD-EPI)NonAf Random Glucose Calcium Magnesium Total Bilirubin AST ALT Alkaline Phosphatase Creatine Kinase Troponin I B-Natriuretic Peptide Total Protein Albumin TSH Influenza A (Rapid) Negative Influenza B (Rapid) Negative 04/21/19 04/21/19 15:45 15:45 WBC RBC Hgb Hct MCV MCH MCHC RDW Plt Count MPV Absolute Neuts (auto) Neutrophils % Lymphocytes % Monocytes % Eosinophils % Basophils % Nucleated RBC % PT with INR 14.30 H INR 1.21 H PTT (Actin FS) 38.0 H Anticoagulation Therapy Puncture Site ABG pH ABG pCO2 at Pt Temp ABG pO2 at Pt Temp ABG HCO3 ABG O2 Sat (Measured) ABG O2 Content ABG Base Excess Mark Test Carboxyhemoglobin Methemoglobin Patient On Oxygen O2 Delivery Device Oxygen Flow Rate Vent Mode Vent Rate Mechanical Rate Pressure Support Vent Sodium 140 Potassium 4.5 Chloride 108 H Carbon Dioxide 24 Anion Gap 8 BUN 36.8 H Creatinine 1.6 H Est GFR (CKD-EPI)AfAm 48.47 Est GFR (CKD-EPI)NonAf 41.82 Random Glucose 144 H Calcium 8.9 Magnesium 2.2 Total Bilirubin 0.6 AST 35 ALT 35 Alkaline Phosphatase 261 H Creatine Kinase 88 Troponin I < 0.02 B-Natriuretic Peptide 3022.9 H Total Protein 8.7 H Albumin 3.4 TSH 1.82 Influenza A (Rapid) Influenza B (Rapid) EKG: atrial flutter with ventricular rate of 89 bpm with right bundle branch block with q qaves noted in the inferior leads. No ST elevations or depresisons Patient has elevation in BNP. Creatinine elevated Flu negative with leukocytosis. Troponin negative The patient is likely having a CHF exacerbation due to CXR showing bilateral pulmonary congestion. Patient was given nitro and lasix with symptomatic improvement. Patient admitted to [facility] for CHF exacerbation. Accepted for admission to telemetry. Dispo: Admit Discharge - Discharge Information Problems reviewed: Yes Clinical Impression/Diagnosis: Atrial flutter, Diastolic CHF - Follow up/Referral - Patient Discharge Instructions - Post Discharge Activity
--- NOTE | 2019-04-21 15:43 | PDOC ---
Documentation entered by Valente Rey SCRIBE, acting as scribe for Winifred Mccullough DO. Winifred Mccullough DO: This documentation has been prepared by the Candido jenkins Daniel, SCRIBE, under my direction and personally reviewed by me in its entirety. I confirm that the documentation accurately reflects all work, treatment, procedures, and medical decision making performed by me. Attending Attestation - Resident Resident Name: Jayesh Wetzel - ED Attending Attestation I have performed the following: I have examined & evaluated the patient, The case was reviewed & discussed with the resident, I agree w/resident's findings & plan, Exceptions are as noted - HPI HPI: 04/21/19 15:19 The patient is a 73 year old male with a past medical history of congenital heart rhythm, HLD, GOUT, and ventral hernia here today for evaluation of cough, rhinorrhea, and shortness of breath. The patient reports that for 1 month he has had a cough, rhinorrhea, and worsening shortness of breath. He states that today he developed myalgias. He notes that he had the influenza vaccine. Patient denies headache, lightheadedness. Denies fever, chills. Denies chest pain. Denies nausea, vomiting, diarrhea, abdominal pain. Denies travel or sick contacts. Allergies: NKA PCP: Negrito Yoon - Physicial Exam PE: 04/21/19 15:28 Constitutional: Awake, alert, oriented. No acute distress. Head: Normocephalic. Atraumatic Eyes: PERRL. EOMI. Conjunctivae are not pale. ENT: Mucous membranes are moist and intact. Posterior pharynx without exudates or erythema. Uvula midline. Neck: Supple. Full ROM. No lymphadenopathy. Cardiovascular: +irregular irregular. Regular rate. S1, S2 regular. Distal pulses are 2+ and symmetric. Pulmonary/Chest: +rales and crackles bilaterally to the mid lung. Abdominal: +non tender ventral hernia. Soft and non-distended. There is no tenderness. No rebound, guarding or rigidity. No organomegaly. Good bowel sounds. Back: No CVA tenderness. Musculoskeletal: +bilateral trace edema in the ankles. No cyanosis. No clubbing. Full range of motion in all extremities. Nocalf tenderness. Radial/pedal pulses are intact and 2+ bilaterally Skin: +periorbital cyanosis. Skin is warm and dry. No petechiae. No purpura. Neurological: Alert and oriented to person, place, and time. Cranial nerves II-XII are grossly intact. Normal speech. Strength is grossly symmetric. No sensory deficits. Psychiatric: Good eye contact. Normal interaction, affect and behavior. - Medical Decision Making 04/21/19 15:41 I, Dr. Winifred Mccullough, DO, attest that this document has been prepared under my direction and personally reviewed by me in its entirety. I further attest, that it accurately reflects all work, treatment, procedures and medical decision-making performed by me. a/p: 73yo male with increasing sob x 1 month, but cough and sob/cárdenas/pnd for last 4 days -no f/c -body aches today -no abd pain, no n/v/d -dry cough, +rhinorrhea -no sore throat, no sick contacts, no recent travel -pt arrives hypoxic - pulse ox 87upon arrival with perioral cyanosis -abg ordered -will send labs, ekg, cxr -crackles on exam, suspect heart failure vs pna -will monitor and reassess 04/21/19 16:22 pt with florid pulm edema on cxr, vascular congestion will start nitro and lasix 04/21/19 16:24 flu neg 04/21/19 17:25 trop neg elevated bnp to 3000 cr 1.6 pt is volume overloaded will be admitted [facility] 04/21/19 17:40 resident discussed the case with [facility] who accepts pt to service Heart Score/ECG Review - ECG Intrepretation Comment:: 04/21/19 16:23 aflutter at 89, pvc, rbbb, q waves inferiorly which are age indeterminate, abnl ekg
[2019-04-21 15:44] LABS: ARTERIAL BLOOD GAS PCO2 29.2 mmHg (35-45); ARTERIAL BLOOD GAS PO2 96 mmHg (80-100); ARTERIAL BLOOD GAS pH 7.46 (7.35-7.45)
[2019-04-21 15:45] LABS: ARTERIAL BLD GAS O2 SATURATION 97.1 % (95-98)
[2019-04-21 16:01] LABS: CARBOXYHEMOGLOBIN 1.4 % (0-2)
[2019-04-21] MEDS ORDERED: NITROGLYCERIN 2% OINTMENT - 1GM PACKET TD ONE ×2 (16:22→16:26)
[2019-04-21] MEDS ORDERED: FUROSEMIDE 40 MG/4 ML INJECTABLE VIAL IVPUSH ONE (16:23)
[2019-04-21] MEDS ORDERED: FUROSEMIDE 40 MG/4 ML INJECTABLE VIAL ONE (16:26)
[2019-04-21 16:33] LABS: BASO % 0.8 % (0-2.0); EOS % 9.6 % (0-4.5); HEMOGLOBIN 14.1 GM/dL (11.7-16.9); LYMPH % 9.6 % (8-40); MCH 31.9 pg (25.7-33.7); MCHC 33.6 g/dl (32.0-35.9); MEAN PLT VOLUME 8.5 fl (7.5-11.1); MONO % 6.2 % (3.8-10.2); NEUT % 73.8 % (42.8-82.8); PLATELET COUNT 195 K/MM3 (134-434); RBC 4.42 M/mm3 (4.00-5.60); RDW 15.2 % (11.9-15.9); WHITE BLOOD COUNT 14.3 K/mm3 (4.0-10.0)
[2019-04-21 17:16] LABS: INR 1.21 (0.83-1.09); PROTHROMBIN TIME (PATIENT) 14.3 SEC (9.7-13.0)
[2019-04-21 17:17] LABS: ALBUMIN 3.4 g/dl (3.4-5.0); ALK PHOS 261 U/L (45-117); ANION GAP 8 MMOL/L (8-16); BILIRUBIN,TOTAL 0.6 mg/dL (0.2-1); BLOOD UREA NITROGEN 36.8 mg/dL (7-18); CALCIUM 8.9 mg/dL (8.5-10.1); CHLORIDE 108 mmol/L (98-107); CO2 24 mmol/L (21-32); CREATININE 1.6 mg/dL (0.55-1.3); GLUCOSE,RANDOM 144 mg/dL (74-106); MAGNESIUM 2.2 mg/dL (1.8-2.4); N-TERMINAL BNP 3022.9 pg/ml (5-125); POTASSIUM 4.5 mmol/L (3.5-5.1); SGOT/AST 35 U/L (15-37); SGPT/ALT 35 U/L (13-61); SODIUM 140 mmol/L (136-145); TOT PROT 8.7 g/dl (6.4-8.2)
--- NOTE | 2019-04-21 17:43 | HP ---
CHIEF COMPLAINT: shortness of breath PCP: Dr. Robles HISTORY OF PRESENT ILLNESS: Patient is a 73 year old male with a significant past medical history of pre diabetes (on no home medications), ventral hernia (with repair 2001) gout. He presents to the ED today with complaints of shortness of breath with dyspnea on minimal exertion. The patient reports that for 1 month he has had a cough, rhinorrhea, and worsening shortness of breath. He states that today he developed myalgias. He denies any fever. Denies chest pain. Denies nausea, vomiting, diarrhea, abdominal pain. Denies travel or sick contacts. He reports an episode of chills today while in the ED but denies any fevers at home. Patient states that he had a recent cardiac cath after last admission at [facility] and told that everything was fine. He states that the only medication he takes at home is for gout. In the ED he was awake, alert and in mild respiratory distress which improved on supplemental oxygen. He denies any chest pain on exam. ER course was notable for: (1) Nitro paste (2) WBC 14.3 (3) Lasix 40 (4) hypoxic at 87% room air (5) bun/creat: 36.8/1.6 (6) echo 02/2018: ef 50%, mod mr, mod tr, mild aortic sclerosis (7) abg: partially compensated respiratory alkalosis (8) chest xray with cardiomegaly with pulmonary congestion and small bilateral pleural effusion (9) ekg: read at afib/aflutter with 1st deg av block, looks like NSR with PVCs and RBBB. monitor on tele. Recent Travel: no recent travel PAST MEDICAL HISTORY: pre diabetes (on no home medications), ventral hernia (with repair 2001) gout. PAST SURGICAL HISTORY: ventral hernia 2001 Social History: Smoking: Former; quit over 40 years ago Alcohol: occasionally Drugs: none Lives at home , normally ambulatory and independent with advanced ADLs - not home oxygen dependent Allergies No Known Allergies Allergy (Verified 04/21/19 14:57) HOME MEDICATIONS: Home Medications Medication Instructions Recorded Indomethacin 50 mg PO PRN 03/02/18 Albuterol 0.083% Nebulizer Brittany 1 amp NEB Q4H PRN #1 amp 03/04/18 [Ventolin 0.083% Nebulizer Soln -] Aspirin Coated [Ecotrin -] 81 mg PO DAILY #30 tablet.ec 03/04/18 Atorvastatin Ca [Lipitor] 40 mg PO HS #30 tablet 03/04/18 Carvedilol [Coreg -] 3.125 mg PO BID #60 tablet 03/04/18 Cefuroxime Axetil [Ceftin -] 500 mg PO BID #10 tablet 03/04/18 Clopidogrel Bisulfate [Plavix -] 75 mg PO DAILY #30 tablet 03/04/18 Oseltamivir Phosphate [Tamiflu -] 75 mg PO DAILY #6 capsule 03/04/18 Sennosides [Senna -] 2 tab PO HS PRN #15 tablet 03/04/18 REVIEW OF SYSTEMS CONSTITUTIONAL: Absent: fever, chills, diaphoresis, generalized weakness, malaise, loss of appetite, weight change HEENT: Absent: rhinorrhea, nasal congestion, throat pain, throat swelling, difficulty swallowing, mouth swelling, ear pain, eye pain, visual changes CARDIOVASCULAR: Absent: chest pain, syncope, palpitations, irregular heart rate, lightheadedness, peripheral edema RESPIRATORY: Present: cough, shortness of breath, dyspnea with exertion, orthopnea, wheezing, stridor, hemoptysis GASTROINTESTINAL: Absent: abdominal pain, abdominal distension, nausea, vomiting, diarrhea, constipation, melena, hematochezia GENITOURINARY: Absent: dysuria, frequency, urgency, hesitancy, hematuria, flank pain, genital pain MUSCULOSKELETAL: Absent: myalgia, arthralgia, joint swelling, back pain, neck pain SKIN: Absent: rash, itching, pallor HEMATOLOGIC/IMMUNOLOGIC: Absent: easy bleeding, easy bruising, lymphadenopathy, frequent infections ENDOCRINE: Absent: unexplained weight gain, unexplained weight loss, heat intolerance, cold intolerance NEUROLOGIC: Absent: headache, focal weakness or paresthesias, dizziness, unsteady gait, seizure, mental status changes, bladder or bowel incontinence PSYCHIATRIC: Absent: anxiety, depression, suicidal or homicidal ideation, hallucinations. PHYSICAL EXAMINATION Vital Signs - 24 hr 04/21/19 04/21/19 14:53 17:15 Temperature 97.4 F L 97.5 F L Pulse Rate 62 Pulse Rate [ 69 Left Radial] Respiratory 20 Rate Blood Pressure 130/100 Blood Pressure 151/64 [Right Arm] O2 Sat by Pulse 87 L 98 Oximetry (%) GENERAL: NAD, awake, alert, and fully oriented, with 2 liters of nasal cannula HEENT: PERRLA, sclera anicteric, skin hyperpigmentation noted on nose, dry mucosa, no posterior oropharynx or buccal erythema NECK: Structurally intact, no JVD, soft. LUNGS: Good inspiratory effort with mild crackles at bases bilaterally. No accessory muscle use. On 2LNC, 90s% HEART: RRR, normal S1 and S2 without murmur ABDOMEN: Soft, NT/ND, normoactive bowel sounds, no guarding, no suprapubic tenderness MUSCULOSKELETAL: No CVA tenderness. EXTREMITIES: dry scaly skin on bilateral lower extremities NEUROLOGICAL: Strength 5/5 in all upper extremity areas, strength 4/5 bilaterally in lower extremities. Sensation intact in both upper extremities. Normal speech. Gait not observed PSYCHIATRIC: Cooperative. Good eye contact. Appropriate mood and affect. SKIN: Warm, dry, clear scaling skin b/l in lower extremities with chronic venous stasis changes noted. Laboratory Results - last 24 hr 04/21/19 04/21/19 04/21/19 15:30 15:31 15:45 WBC 14.3 H RBC 4.42 Hgb 14.1 Hct 42.0 D MCV 95.0 MCH 31.9 MCHC 33.6 RDW 15.2 Plt Count 195 D MPV 8.5 Absolute Neuts (auto) 10.6 H Neutrophils % 73.8 Lymphocytes % 9.6 Monocytes % 6.2 Eosinophils % 9.6 H D Basophils % 0.8 Nucleated RBC % 0 PT with INR INR PTT (Actin FS) Anticoagulation Therapy No Result Required. Puncture Site No Result Required. ABG pH 7.46 H ABG pCO2 at Pt Temp 29.2 L ABG pO2 at Pt Temp 96 ABG HCO3 20.3 L ABG O2 Sat (Measured) 97.1 ABG O2 Content 18.9 ABG Base Excess -2.0 Mark Test No Result Required. Carboxyhemoglobin 1.4 Methemoglobin 1.0 Patient On Oxygen No Result Required. O2 Delivery Device No Result Required. Oxygen Flow Rate No Result Required. Vent Mode No Result Required. Vent Rate No Result Required. Mechanical Rate No Result Required. Pressure Support Vent No Result Required. Sodium Potassium Chloride Carbon Dioxide Anion Gap BUN Creatinine Est GFR (CKD-EPI)AfAm Est GFR (CKD-EPI)NonAf Random Glucose Calcium Magnesium Total Bilirubin AST ALT Alkaline Phosphatase Creatine Kinase Troponin I B-Natriuretic Peptide Total Protein Albumin TSH Influenza A (Rapid) Negative Influenza B (Rapid) Negative 04/21/19 04/21/19 15:45 15:45 WBC RBC Hgb Hct MCV MCH MCHC RDW Plt Count MPV Absolute Neuts (auto) Neutrophils % Lymphocytes % Monocytes % Eosinophils % Basophils % Nucleated RBC % PT with INR 14.30 H INR 1.21 H PTT (Actin FS) 38.0 H Anticoagulation Therapy Puncture Site ABG pH ABG pCO2 at Pt Temp ABG pO2 at Pt Temp ABG HCO3 ABG O2 Sat (Measured) ABG O2 Content ABG Base Excess Mark Test Carboxyhemoglobin Methemoglobin Patient On Oxygen O2 Delivery Device Oxygen Flow Rate Vent Mode Vent Rate Mechanical Rate Pressure Support Vent Sodium 140 Potassium 4.5 Chloride 108 H Carbon Dioxide 24 Anion Gap 8 BUN 36.8 H Creatinine 1.6 H Est GFR (CKD-EPI)AfAm 48.47 Est GFR (CKD-EPI)NonAf 41.82 Random Glucose 144 H Calcium 8.9 Magnesium 2.2 Total Bilirubin 0.6 AST 35 ALT 35 Alkaline Phosphatase 261 H Creatine Kinase 88 Troponin I < 0.02 B-Natriuretic Peptide 3022.9 H Total Protein 8.7 H Albumin 3.4 TSH 1.82 Influenza A (Rapid) Influenza B (Rapid) ASSESSMENT/PLAN: Problem List - Problem (1) Irregular heart rhythm Assessment/Plan: ekg: read at afib/aflutter with 1st deg av block, looks like NSR with PVCs and RBBB. monitor on tele. will hold off on anticoagultion until eval by cardiology Code(s): I49.9 - CARDIAC ARRHYTHMIA, UNSPECIFIED (2) Diastolic CHF Assessment/Plan: patient with increasing shortness of breath requiring supplemental oxygen. not home oxygen dependent. states he had a recent cardiac cath without any acute findings. On last admission, he was started on coreq, along with a statin however he states he was not taking this medication after discharge. continue to monitor intake and output supplemental oxygen to maintain oxygen above 92% on supplemental oxygen monitor daily weights on lasix 40mg daily echo ordered Code(s): I50.30 - UNSPECIFIED DIASTOLIC (CONGESTIVE) HEART FAILURE (3) Hypertension Assessment/Plan: patient denies any anti hypertensive medications currently. start on coreq 3.25mg bid pending cardiology recommendations Code(s): I10 - ESSENTIAL (PRIMARY) HYPERTENSION (4) Pre-diabetes Assessment/Plan: hmga1c in a.m. Code(s): R73.03 - PREDIABETES (5) Hyperlipidemia Assessment/Plan: on statin therapy Code(s): E78.5 - HYPERLIPIDEMIA, UNSPECIFIED (6) Shortness of breath Assessment/Plan: likely in the setting of acute chf exacerbation no wbc elevation, and remains afebrile on supplemental oxygen @ 2 liters had one episode of chills in the ED with rhinorrhea, started on azithromycin, will defer to pulm on continuation of azithromycin. blood cultures pending duonebs prn Code(s): R06.02 - SHORTNESS OF BREATH (7) Alkaline phosphatase elevation Assessment/Plan: monitor on daily labs, if continues to rise, may need a GI evaluation Code(s): R74.8 - ABNORMAL LEVELS OF OTHER SERUM ENZYMES (8) DVT prophylaxis Assessment/Plan: heparin tid Code(s): Z29.9 - ENCOUNTER FOR PROPHYLACTIC MEASURES, UNSPECIFIED Visit type - Emergency Visit Emergency Visit: Yes ED Registration Date: 04/21/19 Care time: The patient presented to the Emergency Department on the above date and was hospitalized for further evaluation of their emergent condition. - New Patient This patient is new to me today: Yes Date on this admission: 04/22/19 - Critical Care Critical Care patient: No
[2019-04-21] MEDS ORDERED: AZITHROMYCIN IVPB 500 MG in DEXTROSE 5%-WATER - 250 ML IVPB ONE (18:35)
[2019-04-21] MEDS ORDERED: AZITHROMYCIN IVPB 500 MG/250 ML BAG IVPB ONE ×2 (18:50→19:00)
[2019-04-21] MEDS ORDERED: ATORVASTATIN CA 40 MG TABLET (FP) ONE (22:31)
[2019-04-21] MEDS ORDERED: CARVEDILOL 3.125 MG TABLET (FP) ONE (22:31)
[2019-04-21] MEDS ORDERED: HEPARIN NA (PORCINE) 5,000 UNITS/ML 1ML VIAL ONE (22:31)
[2019-04-21] MEDS: CARVEDILOL 3.125 MG TABLET (FP) PO SCH (22:40)
[2019-04-21] MEDS: HEPARIN NA (PORCINE) 5,000 UNITS/ML 1ML VIAL SQ SCH (22:41)
[2019-04-21] MEDS: ATORVASTATIN CA 40 MG TABLET (FP) PO SCH (22:41)
[2019-04-22] MEDS: HEPARIN NA (PORCINE) 5,000 UNITS/ML 1ML VIAL SQ SCH ×2 (06:40→14:31)
[2019-04-22] MEDS ORDERED: ASPIRIN COATED 81 MG TABLET.EC ONE (08:35)
[2019-04-22] MEDS ORDERED: FUROSEMIDE 40 MG/4 ML INJECTABLE VIAL ONE (08:36)
[2019-04-22 09:00] LABS: BASO % 0.7 % (0-2.0); EOS % 13.2 % (0-4.5); HEMATOCRIT 39.4 % (35.4-49); HEMOGLOBIN 13.2 GM/dL (11.7-16.9); LYMPH % 9.7 % (8-40); MCH 32.1 pg (25.7-33.7); MCHC 33.5 g/dl (32.0-35.9); MEAN CELL VOLUME 95.7 fl (80-96); MEAN PLT VOLUME 8.4 fl (7.5-11.1); MONO % 5.4 % (3.8-10.2); PLATELET COUNT 169 K/MM3 (134-434); RBC 4.11 M/mm3 (4.00-5.60); RDW 15.2 % (11.9-15.9); WHITE BLOOD COUNT 13.7 K/mm3 (4.0-10.0)
--- NOTE | 2019-04-22 09:27 | EKG ---
Test Reason : Blood Pressure : / mmHG Vent. Rate : 039 BPM Atrial Rate : 051 BPM P-R Int : 000 ms QRS Dur : 144 ms QT Int : 548 ms P-R-T Axes : 000 -05 028 degrees QTc Int : 441 ms ATRIAL FLUTTER WITH SLOW VENTRICULAR RESPONSE RIGHT BUNDLE BRANCH BLOCK POSSIBLE INFERIOR INFARCT (CITED ON OR BEFORE 21-APR-2019) ABNORMAL ECG WHEN COMPARED WITH ECG OF 21-APR-2019 16:12, VENT. RATE HAS DECREASED BY 50 BPM Confirmed by Marycruz Zuñiga ([id number]) on 04/22/2019 9:26:56 AM Referred By: Confirmed By:Marycruz Zuñiga
[2019-04-22 09:32] LABS: ALBUMIN 3.1 g/dl (3.4-5.0); BILIRUBIN,TOTAL 0.8 mg/dL (0.2-1); BLOOD UREA NITROGEN 38.9 mg/dL (7-18); CALCIUM 8.6 mg/dL (8.5-10.1); CREATININE 1.3 mg/dL (0.55-1.3); MAGNESIUM 2.1 mg/dL (1.8-2.4); POTASSIUM 4.3 mmol/L (3.5-5.1); TOT PROT 8.1 g/dl (6.4-8.2)
--- NOTE | 2019-04-22 09:33 | EKG ---
Test Reason : Blood Pressure : / mmHG Vent. Rate : 089 BPM Atrial Rate : 208 BPM P-R Int : 000 ms QRS Dur : 144 ms QT Int : 380 ms P-R-T Axes : 023 -28 050 degrees QTc Int : 462 ms ATRIAL FLUTTER WITH VARIABLE A-V BLOCK WITH PREMATURE VENTRICULAR OR ABERRANTLY CONDUCTED COMPLEXES RIGHT BUNDLE BRANCH BLOCK ABNORMAL ECG WHEN COMPARED WITH ECG OF 02-MAR-2018 20:45, ATRIAL FLUTTER HAS REPLACED SINUS RHYTHM Confirmed by Marycruz Zuñiga ([id number]) on 04/22/2019 9:33:31 AM Referred By: Confirmed By:Marycruz Zuñiga
[2019-04-22] MEDS: ASPIRIN COATED 81 MG TABLET.EC PO SCH (10:21)
[2019-04-22] MEDS: FUROSEMIDE 40 MG/4 ML INJECTABLE VIAL IVPUSH SCH (10:21)
[2019-04-22 10:56] LABS: URINE APPEARANCE CLEAR; URINE BILIRUBIN NEGATIVE (NEGATIVE); URINE COLOR YELLOW; URINE GLUCOSE (UA) NEGATIVE (NEGATIVE); URINE KETONE NEGATIVE (NEGATIVE); URINE LEUK ESTERASE NEGATIVE (NEGATIVE); URINE NITRITE NEGATIVE (NEGATIVE); URINE PROTEIN NEGATIVE (NEGATIVE); URINE UROBILINOGEN 0.2 mg/dL (0.2-1.0)
--- NOTE | 2019-04-22 13:23 | CON.PULM ---
Consult Consult Specialty:: PULM/CCM Referred by:: Hospitalist Reason for Consultation:: SOB - History of Present Illness Chief Complaint: SOB History of Present Illness: 73 M, remote smoking history, apparent history of Influenzae about 2 months ago, diet controlled DM, ventral hernia (with repair 2001), and gout. Admitted via the ER due to shortness of breath with dyspnea. Reports 1 month he has had a cough and rhinorrhea. No travel history or sick contacts that would be concerning. No febrile illness. CXR: bilateral pleural effusions and congestive changes. - History Source History Provided By: Patient Limitations to Obtaining History: No Limitations - Past Medical History Pulmonary: Yes: Bronchitis. No: Asthma, Cancer, COPD, O2 Dependent, Pneumonia, Previously Intubated, Pulmonary Embolus, Pulmonary Fibrosis - Alcohol/Substance Use Hx Alcohol Use: No - Smoking History Smoking history: Never smoked Have you smoked in the past 12 months: No Home Medications - Allergies Allergies/Adverse Reactions: Allergies Allergy/AdvReac Type Severity Reaction Status Date / Time No Known Allergies Allergy Verified 04/21/19 14:57 - Home Medications Home Medications: Ambulatory Orders Indomethacin 50 mg PO PRN 03/02/18 Albuterol 0.083% Nebulizer Brittany [Ventolin 0.083% Nebulizer Soln -] 1 amp NEB Q4H PRN #1 amp 03/04/18 Aspirin Coated [Ecotrin -] 81 mg PO DAILY #30 tablet.ec 03/04/18 Atorvastatin Ca [Lipitor] 40 mg PO HS #30 tablet 03/04/18 Carvedilol [Coreg -] 3.125 mg PO BID #60 tablet 03/04/18 Cefuroxime Axetil [Ceftin -] 500 mg PO BID #10 tablet 03/04/18 Clopidogrel Bisulfate [Plavix -] 75 mg PO DAILY #30 tablet 03/04/18 Oseltamivir Phosphate [Tamiflu -] 75 mg PO DAILY #6 capsule 03/04/18 Sennosides [Senna -] 2 tab PO HS PRN #15 tablet 03/04/18 Review of Systems - Review of Systems Constitutional: denies: Chills, Fever, Night Sweats Eyes: reports: No Symptoms HENT: reports: No Symptoms Neck: reports: No Symptoms Cardiovascular: reports: Edema, Shortness of Breath. denies: Chest Pain, Palpitations Respiratory: reports: Cough, Orthopnea, Snoring, SOB, SOB on Exertion. denies: Hemoptysis, Wheezing Gastrointestinal: reports: No Symptoms Genitourinary: reports: No Symptoms Breasts: reports: No Symptoms Reported Musculoskeletal: reports: No Symptoms Integumentary: reports: No Symptoms Neurological: reports: No Symptoms Endocrine: reports: No Symptoms Hematology/Lymphatic: reports: No Symptoms Psychiatric: reports: No Symptoms Physical Exam Vital Sings: Vital Signs Temperature 98.5 F 04/22/19 00:12 Pulse Rate 80 04/22/19 10:29 Respiratory Rate 17 04/22/19 10:29 Blood Pressure 127/60 04/22/19 10:29 O2 Sat by Pulse Oximetry (%) 99 04/22/19 10:29 Constitutional: Yes: No Distress, Obese Eyes: Yes: Conjunctiva Clear, EOM Intact HENT: Yes: Atraumatic, Normocephalic Neck: Yes: Supple, Trachea Midline Cardiovascular: Yes: Regular Rate and Rhythm Respiratory: Yes: Cough, Diminished, On Nasal O2, Rales, Rhonchi, SOB, SOB on Exertion. No: Accessory Muscle Use, Stridor, Tachypnea, Wheezes ...Inspection: Yes: WNL ...Clubbing: No Gastrointestinal: Yes: Normal Bowel Sounds, Soft, Abdomen, Obese Musculoskeletal: Yes: WNL Extremities: No: Calf Tenderness, Erythema Edema: Yes Peripheral Pulses WNL: Yes Integumentary: Yes: Venous Stasis Changes Neurological: Yes: WNL, Alert, Oriented ...Motor Strength: WNL Psychiatric: Yes: WNL, Alert, Oriented Labs: CBC, BMP 04/22/19 08:44 04/22/19 08:44 ABG Results ABG pH 7.46 (7.35-7.45) H 04/21/19 15:31 ABG pCO2 at Pt Temp 29.2 mmHg (35-45) L 04/21/19 15:31 ABG pO2 at Pt Temp 96 mmHg (80-100) 04/21/19 15:31 ABG HCO3 20.3 mmol/L (22-27) L 04/21/19 15:31 ABG O2 Sat (Measured) 97.1 % (95-98) 04/21/19 15:31 ABG O2 Content 18.9 % vol 04/21/19 15:31 ABG Base Excess -2.0 meq/l (-2-2) 04/21/19 15:31 Imaging - Results Chest X-ray: Report Reviewed, Image Reviewed Problem List - Problems (1) Diastolic CHF Code(s): I50.30 - UNSPECIFIED DIASTOLIC (CONGESTIVE) HEART FAILURE (2) Hyperlipidemia Code(s): E78.5 - HYPERLIPIDEMIA, UNSPECIFIED (3) Hypertension Code(s): I10 - ESSENTIAL (PRIMARY) HYPERTENSION (4) Pre-diabetes Code(s): R73.03 - PREDIABETES (5) Shortness of breath Code(s): R06.02 - SHORTNESS OF BREATH (6) Influenza A Code(s): J10.1 - FLU DUE TO OTH IDENT INFLUENZA VIRUS W OTH RESP MANIFEST Assessment/Plan Lasix O2 as needed Monitor off ABX Follow I & O Daily weights Sleep Screen No smoking Outpatient PFTs Will follow Thank you Dr Khan TAMMI Screen - TAMMI History Previously diagnosed with Sleep Apnea: No If Yes, currently using CPAP to treat your TAMMI: No - SNORING Do you snore loudly (enough to be heard thru closed doors)?: No - TIRED Do you often feel tired, fatigued, or sleepy during daytime?: Yes - OBSERVED Has anyone observed you stop breathing during your sleep?: Yes - BLOOD PRESSURE Do you have or are being treated for high blood pressure?: Yes - BMI Answer Y if weight exceeds amount listed for your height: No .: HEIGHT & WEIGHT (lbs): 4'10" 167lbs; 411" 175 lbs; 5'0" 179lbs;. 5'1" 185lbs; 5'2" 191lbs; 5'3" 197lbs;. 5'4" 204lbs; 5'5" 210lbs; 5'6" 216lbs;. 5'7" 223lbs; 5'8" 230lbs; 5'9" 237lbs;. 5'10" 243lbs; 5'11" 250lbs; 6' 258lbs;. 6'1" 265lbs; 6'2" 272lbs; 6'3" 279lbs;. 6'4" 287lbs; 6'5" 295lbs - AGE Is your age over 50 yrs old?: Yes - NECK CIRCUMFERENCE Neck Circumference 40cm: Yes - GENDER Male: Yes - SCORE Total Score: 6 Score Interpretation: High Risk of TAMMI .: Interpretation: Score 0-2: Low Risk TAMMI. Score 3-4: Intermediate Risk TAMMI. Score 5-8: High Risk TAMMI
[2019-04-22] MEDS ORDERED: AZITHROMYCIN IVPB 500 MG/250 ML BAG IVPB ONE (14:11)
[2019-04-22] MEDS: AZITHROMYCIN IVPB 500 MG/250 ML BAG IVPB SCH (14:19)
--- NOTE | 2019-04-22 14:37 | ECHO ---
Name: ALONDRA PATEL Exam:Adult Echocardiogram Study Date: 04/22/2019 11:35 AM Age: 73 yrs Reason For Study: shortness of breath Height: 71 in Weight: 225 lb BSA: 2.2 m2 MMode/2D Measurements & Calculations IVSd: 1.1 cm Ao root diam: 3.5 cm LVIDd: 5.6 cm LA dimension: 5.1 cm LVIDs: 3.8 cm ACS: 1.9 cm LVPWd: 0.93 cm IVSs: 1.4 cm LVPWs: 1.4 cm EDV(Teich): 154.0 ml ESV(Teich): 60.1 ml Doppler Measurements & Calculations MV E max see: 107.1 cm/sec Ao V2 max: 114.7 cm/sec MV A max see: 32.1 cm/sec Ao max P.3 mmHg MV E/A: 3.3 Ao V2 mean: 77.6 cm/sec Ao mean P.7 mmHg Ao V2 VTI: 20.5 cm AI P1/2t: 733.7 msec AI max see: 288.8 cm/sec MR max see: 478.2 cm/sec AI max P.5 mmHg MR max P.8 mmHg AI dec slope: 115.3 cm/sec2 TR max see: 308.0 cm/sec PI end-d see: 139.8 cm/sec TR max P.8 mmHg Procedure Study Quality: Technically suboptimal. The study was technically difficult with many images being sub optimal in quality. Left Ventricle The left ventricle is normal in size. There is mild concentric left ventricular hypertrophy. The left ventricular ejection fraction is normal. Ejection Fraction = 55%. Right Ventricle The right ventricle is not well visualized. Atria The left atrium is moderately dilated. Right atrium not well visualized. The right atrium is mildly d ilated. Mitral Valve There is mild mitral valve thickening. There is mild to moderate mitral regurgitation. Tricuspid Valve The tricuspid valve is not well visualized. There is mild tricuspid regurgitation. Right ventricular systolic pressure is normal. Aortic Valve There is moderate aortic valve thickening. Mild aortic regurgitation. Pulmonic Valve The pulmonic valve is not well visualized. Great Vessels The aortic root is not well visualized. Pericardium/Pleura Trivial pericardial effusion not hemodynamically significant. Interpretation Summary Technicall suboptimal study PVCs LV: Normal size,mild LVH,normal systolic function, EF 55% RV: Not well seen LA; moderately dilated RA: Mildly dilated Mild to moderate MR (increased with PVCs) Mild TR, normal RVSP Mildly calcied aortic valve with mild regurghitation. Marycruz Zuñiga 04/22/2019 02:37 PM
--- NOTE | 2019-04-22 14:43 | CONSULT ---
Consultation: Cardiology Service REQUESTING PROVIDER: CONSULT REQUEST: We have been asked to medically evaluate this patient for CHF. HISTORY OF PRESENT ILLNESS: Pt is a 73 y/o M with PMH gout and ventral hernia (operated in 2003) who presented to ED with complaint of SOB. Pt states he has had a runny nose since his last visit to [facility]. He states that about 3 months ago, he started having shortness of breath. Prior to this, he states he was able to walk without limitations. He states his SOB has been slowly worsening since that time especially in the last 3-4 weeks. It has now progressed to the point that he is unable to walk to the bathroom without becoming winded. Denies chest pain or pressure. Admits to nonproductive cough. No fever, chills, travel, sick contacts. Denies leg swelling, palpitations. SOB is not worse with lying flat. 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 and had a cardiac cath which revealed nonobstructive disease. In ED, tele and EKG revealed new-onset atrial flutter, elevated BNP, CXR significant for congestion and cardiomegally, as well as eosinophilia and elevated Alk Phos. Pt has been urinating copiously and states his urine was quite dark prior to coming to ED and is now clear. REVIEW OF SYSTEMS: CONSTITUTIONAL: Absent: fever, chills, diaphoresis, generalized weakness, malaise, loss of appetite, weight change HEENT: rhinorrhea, Absent: nasal congestion, throat pain, throat swelling, difficulty swallowing, mouth swelling, ear pain, eye pain, visual changes CARDIOVASCULAR: Absent: chest pain, syncope, palpitations, irregular heart rate, lightheadedness, peripheral edema RESPIRATORY: shortness of breath, dyspnea with exertion Absent: cough, , orthopnea, wheezing, stridor, hemoptysis GASTROINTESTINAL: Absent: abdominal pain, abdominal distension, nausea, vomiting, diarrhea, constipation, melena, hematochezia GENITOURINARY: Absent: dysuria, frequency, urgency, hesitancy, hematuria, flank pain, genital pain MUSCULOSKELETAL: Absent: myalgia, arthralgia, joint swelling, back pain, neck pain SKIN: Absent: rash, itching, pallor HEMATOLOGIC/IMMUNOLOGIC: Absent: easy bleeding, easy bruising, lymphadenopathy, frequent infections ENDOCRINE: Absent: unexplained weight gain, unexplained weight loss, heat intolerance, cold intolerance NEUROLOGIC: Absent: headache, focal weakness or paresthesias, dizziness, unsteady gait, seizure, mental status changes, bladder or bowel incontinence PSYCHIATRIC: Absent: anxiety, depression, suicidal or homicidal ideation, hallucinations. PHYSICAL EXAMINATION Vital Signs - 24 hr 04/21/19 04/21/19 04/21/19 14:53 15:15 17:15 Temperature 97.4 F L 97.5 F L Pulse Rate 62 Pulse Rate [ 69 Left Radial] Respiratory 20 Rate Blood Pressure 130/100 Blood Pressure 151/64 [Right Arm] O2 Sat by Pulse 87 L 82 L 98 Oximetry (%) 04/21/19 04/22/19 04/22/19 22:15 00:10 00:12 Temperature 98.5 F Pulse Rate Pulse Rate [ 67 54 L 82 Left Radial] Respiratory 15 19 19 Rate Blood Pressure Blood Pressure 147/91 132/56 L 132/81 [Right Arm] O2 Sat by Pulse 100 100 100 Oximetry (%) 04/22/19 04/22/19 04/22/19 02:09 07:05 10:29 Temperature Pulse Rate Pulse Rate [ 43 L 55 L 80 Left Radial] Respiratory 21 H 20 17 Rate Blood Pressure Blood Pressure 120/62 116/56 L 127/60 [Right Arm] O2 Sat by Pulse 100 100 99 Oximetry (%) 04/22/19 14:31 Temperature Pulse Rate Pulse Rate [ 75 Left Radial] Respiratory 22 H Rate Blood Pressure Blood Pressure 119/53 L [Right Arm] O2 Sat by Pulse 100 Oximetry (%) Gen: AAOx3, NAD HEENT: face appears reddened. NCAT, EOMI Neck: b/l fullness posterior to clavicle R>L. Pos JVD Cardio: irregular, normal rate, s1s2, no mrg appreciated Pulm: b/l rales to the mid lung. Apices clear to auscultation Abd: soft, nontender, normal BS. 10cm Ventral hernia with 5cm disc-like mass (likely prior mess) palpable. Hernia border palpable. Ext: scaly darkened rash of b/l LE. 1+ pulses b/l. 1+ edema Laboratory Results - last 24 hr 04/21/19 04/21/19 04/21/19 15:30 15:31 15:45 WBC 14.3 H RBC 4.42 Hgb 14.1 Hct 42.0 D MCV 95.0 MCH 31.9 MCHC 33.6 RDW 15.2 Plt Count 195 D MPV 8.5 Absolute Neuts (auto) 10.6 H Neutrophils % 73.8 Lymphocytes % 9.6 Monocytes % 6.2 Eosinophils % 9.6 H D Basophils % 0.8 Nucleated RBC % 0 PT with INR INR PTT (Actin FS) Anticoagulation Therapy No Result Required. Puncture Site No Result Required. ABG pH 7.46 H ABG pCO2 at Pt Temp 29.2 L ABG pO2 at Pt Temp 96 ABG HCO3 20.3 L ABG O2 Sat (Measured) 97.1 ABG O2 Content 18.9 ABG Base Excess -2.0 Mark Test No Result Required. Carboxyhemoglobin 1.4 Methemoglobin 1.0 Patient On Oxygen No Result Required. O2 Delivery Device No Result Required. Oxygen Flow Rate No Result Required. Vent Mode No Result Required. Vent Rate No Result Required. Mechanical Rate No Result Required. Pressure Support Vent No Result Required. Sodium Potassium Chloride Carbon Dioxide Anion Gap BUN Creatinine Est GFR (CKD-EPI)AfAm Est GFR (CKD-EPI)NonAf Random Glucose Hemoglobin A1c % Calcium Magnesium Total Bilirubin AST ALT Alkaline Phosphatase Creatine Kinase Troponin I B-Natriuretic Peptide Total Protein Albumin Triglycerides Cholesterol Total LDL Cholesterol HDL Cholesterol TSH Urine Color Urine Appearance Urine pH Ur Specific Pierz Urine Protein Urine Glucose (UA) Urine Ketones Urine Blood Urine Nitrite Urine Bilirubin Urine Urobilinogen Ur Leukocyte Esterase Influenza A (Rapid) Negative Influenza B (Rapid) Negative 04/21/19 04/21/19 04/22/19 15:45 15:45 02:38 WBC RBC Hgb Hct MCV MCH MCHC RDW Plt Count MPV Absolute Neuts (auto) Neutrophils % Lymphocytes % Monocytes % Eosinophils % Basophils % Nucleated RBC % PT with INR 14.30 H INR 1.21 H PTT (Actin FS) 38.0 H Anticoagulation Therapy Puncture Site ABG pH ABG pCO2 at Pt Temp ABG pO2 at Pt Temp ABG HCO3 ABG O2 Sat (Measured) ABG O2 Content ABG Base Excess Mark Test Carboxyhemoglobin Methemoglobin Patient On Oxygen O2 Delivery Device Oxygen Flow Rate Vent Mode Vent Rate Mechanical Rate Pressure Support Vent Sodium 140 Potassium 4.5 Chloride 108 H Carbon Dioxide 24 Anion Gap 8 BUN 36.8 H Creatinine 1.6 H Est GFR (CKD-EPI)AfAm 48.47 Est GFR (CKD-EPI)NonAf 41.82 Random Glucose 144 H Hemoglobin A1c % Calcium 8.9 Magnesium 2.2 Total Bilirubin 0.6 AST 35 ALT 35 Alkaline Phosphatase 261 H Creatine Kinase 88 Troponin I < 0.02 0.04 B-Natriuretic Peptide 3022.9 H Total Protein 8.7 H Albumin 3.4 Triglycerides Cholesterol Total LDL Cholesterol HDL Cholesterol TSH 1.82 Urine Color Urine Appearance Urine pH Ur Specific Pierz Urine Protein Urine Glucose (UA) Urine Ketones Urine Blood Urine Nitrite Urine Bilirubin Urine Urobilinogen Ur Leukocyte Esterase Influenza A (Rapid) Influenza B (Rapid) 04/22/19 04/22/19 04/22/19 08:44 08:44 08:44 WBC 13.7 H RBC 4.11 Hgb 13.2 Hct 39.4 MCV 95.7 MCH 32.1 MCHC 33.5 RDW 15.2 Plt Count 169 MPV 8.4 Absolute Neuts (auto) 9.7 H Neutrophils % 71.0 Lymphocytes % 9.7 Monocytes % 5.4 Eosinophils % 13.2 H Basophils % 0.7 Nucleated RBC % 0 PT with INR INR PTT (Actin FS) Anticoagulation Therapy Puncture Site ABG pH ABG pCO2 at Pt Temp ABG pO2 at Pt Temp ABG HCO3 ABG O2 Sat (Measured) ABG O2 Content ABG Base Excess Mark Test Carboxyhemoglobin Methemoglobin Patient On Oxygen O2 Delivery Device Oxygen Flow Rate Vent Mode Vent Rate Mechanical Rate Pressure Support Vent Sodium 142 Potassium 4.3 Chloride 108 H Carbon Dioxide 27 Anion Gap 6 L BUN 38.9 H Creatinine 1.3 Est GFR (CKD-EPI)AfAm 62.30 Est GFR (CKD-EPI)NonAf 53.75 Random Glucose 119 H Hemoglobin A1c % 7.1 H Calcium 8.6 Magnesium 2.1 Total Bilirubin 0.8 AST 30 ALT 31 Alkaline Phosphatase 239 H Creatine Kinase Troponin I B-Natriuretic Peptide Total Protein 8.1 Albumin 3.1 L Triglycerides 53 Cholesterol 109 Total LDL Cholesterol 53 HDL Cholesterol 45 TSH Urine Color Urine Appearance Urine pH Ur Specific Pierz Urine Protein Urine Glucose (UA) Urine Ketones Urine Blood Urine Nitrite Urine Bilirubin Urine Urobilinogen Ur Leukocyte Esterase Influenza A (Rapid) Influenza B (Rapid) 04/22/19 04/22/19 10:00 10:00 WBC RBC Hgb Hct MCV MCH MCHC RDW Plt Count MPV Absolute Neuts (auto) Neutrophils % Lymphocytes % Monocytes % Eosinophils % Basophils % Nucleated RBC % PT with INR INR PTT (Actin FS) Anticoagulation Therapy Puncture Site ABG pH ABG pCO2 at Pt Temp ABG pO2 at Pt Temp ABG HCO3 ABG O2 Sat (Measured) ABG O2 Content ABG Base Excess Mark Test Carboxyhemoglobin Methemoglobin Patient On Oxygen O2 Delivery Device Oxygen Flow Rate Vent Mode Vent Rate Mechanical Rate Pressure Support Vent Sodium Potassium Chloride Carbon Dioxide Anion Gap BUN Creatinine Est GFR (CKD-EPI)AfAm Est GFR (CKD-EPI)NonAf Random Glucose Hemoglobin A1c % Calcium Magnesium Total Bilirubin AST ALT Alkaline Phosphatase Creatine Kinase Troponin I 0.02 B-Natriuretic Peptide Total Protein Albumin Triglycerides Cholesterol Total LDL Cholesterol HDL Cholesterol TSH Urine Color Yellow Urine Appearance Clear Urine pH 5.0 Ur Specific Pierz 1.017 Urine Protein Negative Urine Glucose (UA) Negative Urine Ketones Negative Urine Blood Negative Urine Nitrite Negative Urine Bilirubin Negative Urine Urobilinogen 0.2 Ur Leukocyte Esterase Negative Influenza A (Rapid) Influenza B (Rapid) Active Medications Generic Name Dose Route Start Last Admin Trade Name Nadeemq PRN Reason Stop Dose Admin Aspirin 81 mg 04/22/19 10:00 04/22/19 10:21 Ecotrin - PO 81 mg DAILY CHUCHO Administration Atorvastatin Calcium 40 mg 04/21/19 22:00 04/21/19 22:41 Lipitor - PO 40 mg HS CHUCHO Administration Carvedilol 3.125 mg 04/21/19 22:00 04/21/19 22:40 Coreg - PO 3.125 mg BID CHUCHO Administration Furosemide 40 mg 04/22/19 10:00 04/22/19 10:21 Lasix Injection - IVPUSH 40 mg DAILY CHUCHO Administration Heparin Sodium (Porcine) 5,000 unit 04/21/19 22:00 04/22/19 14:31 Heparin - SQ 5,000 unit TID CHUCHO Administration Azithromycin 500 mg in 250 mls @ 250 mls/hr 04/22/19 10:45 04/22/19 14:19 Zithromax 500mg Ivpb (Pre-Docked) IVPB 250 mls/hr DAILY CHUCHO Administration ASSESSMENT/PLAN: Pt is a 73 y/o M with PMH gout and ventral hernia (operated in 2003) who presented to ED with complaint of SOB. Found in ED to have congestive heart failure. CHF -newly diagnosed -Pos JVD, elevated BNP, Congestion on CXR, B/l Pulm rales -Echo: mild b/l atrial dilatation, mild LVH, EF 55% -Responding well to diuretic. C/w lasix 40 IV daily -monitor I/O -daily weight Aflutter -new onset -start Eliquis 5 bid -monitor on Tele -rate controlled adequately at this time DM -New diagnosis -A1C 7 -DM diet -will need to follow up with PCP regarding lifestyle modification and possibly starting meds Eosinophilia -markedly elevated this visit -unclear etiology -? related to persistent rhinorrhea -monitor -may benefit from further investigation Elevated Alk Phos -unclear etiology -recommend GGT to r/o bone involvement Dispo: We will continue to follow the patient. Thank you for this consultative opportunity. <Charlie Lenz - Last Filed: 04/22/19 15:50> Consultation: REQUESTING PROVIDER: CONSULT REQUEST: We have been asked to medically evaluate this patient for (specify). HISTORY OF PRESENT ILLNESS: REVIEW OF SYSTEMS: CONSTITUTIONAL: Absent: fever, chills, diaphoresis, generalized weakness, malaise, loss of appetite, weight change HEENT: Absent: rhinorrhea, nasal congestion, throat pain, throat swelling, difficulty swallowing, mouth swelling, ear pain, eye pain, visual changes CARDIOVASCULAR: Absent: chest pain, syncope, palpitations, irregular heart rate, lightheadedness, peripheral edema RESPIRATORY: Absent: cough, shortness of breath, dyspnea with exertion, orthopnea, wheezing, stridor, hemoptysis GASTROINTESTINAL: Absent: abdominal pain, abdominal distension, nausea, vomiting, diarrhea, constipation, melena, hematochezia GENITOURINARY: Absent: dysuria, frequency, urgency, hesitancy, hematuria, flank pain, genital pain MUSCULOSKELETAL: Absent: myalgia, arthralgia, joint swelling, back pain, neck pain SKIN: Absent: rash, itching, pallor HEMATOLOGIC/IMMUNOLOGIC: Absent: easy bleeding, easy bruising, lymphadenopathy, frequent infections ENDOCRINE: Absent: unexplained weight gain, unexplained weight loss, heat intolerance, cold intolerance NEUROLOGIC: Absent: headache, focal weakness or paresthesias, dizziness, unsteady gait, sei zure, mental status changes, bladder or bowel incontinence PSYCHIATRIC: Absent: anxiety, depression, suicidal or homicidal ideation, hallucinations. PHYSICAL EXAMINATION Vital Signs - 24 hr 04/21/19 04/21/19 04/22/19 17:15 22:15 00:10 Temperature 97.5 F L Pulse Rate Pulse Rate [ 69 67 54 L Left Radial] Respiratory 15 19 Rate Blood Pressure Blood Pressure 151/64 147/91 132/56 L [Right Arm] O2 Sat by Pulse 98 100 100 Oximetry (%) 04/22/19 04/22/19 04/22/19 00:12 02:09 07:05 Temperature 98.5 F Pulse Rate Pulse Rate [ 82 43 L 55 L Left Radial] Respiratory 19 21 H 20 Rate Blood Pressure Blood Pressure 132/81 120/62 116/56 L [Right Arm] O2 Sat by Pulse 100 100 100 Oximetry (%) 04/22/19 04/22/19 04/22/19 10:29 14:31 15:37 Temperature 97.5 F L Pulse Rate 70 Pulse Rate [ 80 75 Left Radial] Respiratory 17 22 H 22 H Rate Blood Pressure 137/77 Blood Pressure 127/60 119/53 L [Right Arm] O2 Sat by Pulse 99 100 100 Oximetry (%) GENERAL: Awake, alert, and fully oriented, in no acute distress. HEAD: Normal with no signs of trauma. EYES: Pupils equal, round and reactive to light, extraocular movements intact, sclera anicteric, conjunctiva clear. No lid lag. EARS, NOSE, THROAT: Ears normal, nares patent, oropharynx clear without exudates. Moist mucous membranes. NECK: Normal range of motion, supple without lymphadenopathy, JVD, or masses. LUNGS: Breath sounds equal, clear to auscultation bilaterally. No wheezes, and no crackles. No accessory muscle use. HEART: Regular rate and rhythm, normal S1 and S2 without murmur, rub or gallop. ABDOMEN: Soft, nontender, not distended, normoactive bowel sounds, no guarding, no rebound, no masses. No hepatomegaly or splenomegaly. MUSCULOSKELETAL: Normal range of motion at all joints. No bony deformities or tenderness. No CVA tenderness. UPPER EXTREMITIES: 2+ pulses, warm, well-perfused. No cyanosis. No clubbing. Cap refill <2 seconds. No peripheral edema. LOWER EXTREMITIES: 2+ pulses, warm, well-perfused. No calf tenderness. No peripheral edema. NEUROLOGICAL: Cranial nerves II-XII intact. Normal speech. Normal gait. PSYCHIATRIC: Cooperative. Good eye contact. Appropriate mood and affect. SKIN: Warm, dry, normal turgor, no rashes or lesions noted. Laboratory Results - last 24 hr 04/21/19 04/21/19 04/21/19 15:45 15:45 15:45 WBC 14.3 H RBC 4.42 Hgb 14.1 Hct 42.0 D MCV 95.0 MCH 31.9 MCHC 33.6 RDW 15.2 Plt Count 195 D MPV 8.5 Absolute Neuts (auto) 10.6 H Neutrophils % 73.8 Lymphocytes % 9.6 Monocytes % 6.2 Eosinophils % 9.6 H D Basophils % 0.8 Nucleated RBC % 0 PT with INR 14.30 H INR 1.21 H PTT (Actin FS) 38.0 H Sodium 140 Potassium 4.5 Chloride 108 H Carbon Dioxide 24 Anion Gap 8 BUN 36.8 H Creatinine 1.6 H Est GFR (CKD-EPI)AfAm 48.47 Est GFR (CKD-EPI)NonAf 41.82 Random Glucose 144 H Hemoglobin A1c % Calcium 8.9 Magnesium 2.2 Total Bilirubin 0.6 AST 35 ALT 35 Alkaline Phosphatase 261 H Creatine Kinase 88 Troponin I < 0.02 B-Natriuretic Peptide 3022.9 H Total Protein 8.7 H Albumin 3.4 Triglycerides Cholesterol Total LDL Cholesterol HDL Cholesterol TSH 1.82 Urine Color Urine Appearance Urine pH Ur Specific Pierz Urine Protein Urine Glucose (UA) Urine Ketones Urine Blood Urine Nitrite Urine Bilirubin Urine Urobilinogen Ur Leukocyte Esterase 04/22/19 04/22/19 04/22/19 02:38 08:44 08:44 WBC 13.7 H RBC 4.11 Hgb 13.2 Hct 39.4 MCV 95.7 MCH 32.1 MCHC 33.5 RDW 15.2 Plt Count 169 MPV 8.4 Absolute Neuts (auto) 9.7 H Neutrophils % 71.0 Lymphocytes % 9.7 Monocytes % 5.4 Eosinophils % 13.2 H Basophils % 0.7 Nucleated RBC % 0 PT with INR INR PTT (Actin FS) Sodium 142 Potassium 4.3 Chloride 108 H Carbon Dioxide 27 Anion Gap 6 L BUN 38.9 H Creatinine 1.3 Est GFR (CKD-EPI)AfAm 62.30 Est GFR (CKD-EPI)NonAf 53.75 Random Glucose 119 H Hemoglobin A1c % Calcium 8.6 Magnesium 2.1 Total Bilirubin 0.8 AST 30 ALT 31 Alkaline Phosphatase 239 H Creatine Kinase Troponin I 0.04 B-Natriuretic Peptide Total Protein 8.1 Albumin 3.1 L Triglycerides 53 Cholesterol 109 Total LDL Cholesterol 53 HDL Cholesterol 45 TSH Urine Color Urine Appearance Urine pH Ur Specific Pierz Urine Protein Urine Glucose (UA) Urine Ketones Urine Blood Urine Nitrite Urine Bilirubin Urine Urobilinogen Ur Leukocyte Esterase 04/22/19 04/22/19 04/22/19 08:44 10:00 10:00 WBC RBC Hgb Hct MCV MCH MCHC RDW Plt Count MPV Absolute Neuts (auto) Neutrophils % Lymphocytes % Monocytes % Eosinophils % Basophils % Nucleated RBC % PT with INR INR PTT (Actin FS) Sodium Potassium Chloride Carbon Dioxide Anion Gap BUN Creatinine Est GFR (CKD-EPI)AfAm Est GFR (CKD-EPI)NonAf Random Glucose Hemoglobin A1c % 7.1 H Calcium Magnesium Total Bilirubin AST ALT Alkaline Phosphatase Creatine Kinase Troponin I 0.02 B-Natriuretic Peptide Total Protein Albumin Triglycerides Cholesterol Total LDL Cholesterol HDL Cholesterol TSH Urine Color Yellow Urine Appearance Clear Urine pH 5.0 Ur Specific Pierz 1.017 Urine Protein Negative Urine Glucose (UA) Negative Urine Ketones Negative Urine Blood Negative Urine Nitrite Negative Urine Bilirubin Negative Urine Urobilinogen 0.2 Ur Leukocyte Esterase Negative Active Medications Generic Name Dose Route Start Last Admin Trade Name Freq PRN Reason Stop Dose Admin Apixaban 5 mg 04/22/19 22:00 Eliquis - PO BID CHUCHO Aspirin 81 mg 04/22/19 10:00 04/22/19 10:21 Ecotrin - PO 81 mg DAILY CHUCHO Administration Atorvastatin Calcium 40 mg 04/21/19 22:00 04/21/19 22:41 Lipitor - PO 40 mg HS CHUCHO Administration Carvedilol 3.125 mg 04/21/19 22:00 04/21/19 22:40 Coreg - PO 3.125 mg BID CHUCHO Administration Furosemide 40 mg 04/22/19 10:00 04/22/19 10:21 Lasix Injection - IVPUSH 40 mg DAILY CHUCHO Administration Azithromycin 500 mg in 250 mls @ 250 mls/hr 04/22/19 10:45 04/22/19 14:19 Zithromax 500mg Ivpb (Pre-Docked) IVPB 250 mls/hr DAILY CHUCHO Administration Insulin Aspart 1 vial 04/22/19 16:30 Novolog Vial Sliding Scale - SQ ACHS CHUCHO Protocol ASSESSMENT/PLAN: Dispo: We will continue to follow the patient. Thank you for this consultative opportunity. <Geraldo Timmons - Last Filed: 04/22/19 16:27> Visit type - Emergency Visit Emergency Visit: Yes ED Registration Date: 04/21/19 Care time: The patient presented to the Emergency Department on the above date and was hospitalized for further evaluation of their emergent condition. - New Patient This patient is new to me today: Yes Date on this admission: 04/22/19 - Critical Care Critical Care patient: No <Charlie Lenz - Last Filed: 04/22/19 15:50> ATTENDING PHYSICIAN STATEMENT I saw and evaluated the patient. I reviewed the resident's note and discussed the case with the resident. I agree with the resident's findings and plan as documented. SUBJECTIVE: OBJECTIVE: ASSESSMENT AND PLAN: <Charlie Lenz - Last Filed: 04/22/19 15:50> ATTENDING PHYSICIAN STATEMENT I saw and evaluated the patient. I reviewed the resident's note and discussed the case with the resident. I agree with the resident's findings and plan as documented. 73 M with HfPEF was admitted with progressive SOB and signs of pulmonary edema with new onset of rate controlled Atypical Atrial flutter. He has responded to diuretics and less sob. Echo today showed normal LV function without valvular pathology and normal RV function. Labs reviewed. ASSESSMENT AND PLAN: Discontinue heparin and add ELiquis 5mg PO BID Continue IV diuretics, montior daily weight and UO. Cont low dose metoprolol and monitor on telemetry. Investigate significant eosinophil count. Will follow, <Geraldo Timmons - Last Filed: 04/22/19 16:27>
--- NOTE | 2019-04-22 16:23 | PN ---
Physical Exam: SUBJECTIVE: Patient seen and examined in the ED awaiting bed assignment. OBJECTIVE: Patient is a 73 year old male with a significant past medical history of pre diabetes (on no home medications), ventral hernia (with repair 2001) gout. He presents to the ED today with complaints of shortness of breath with dyspnea on minimal exertion. The patient reports that for 1 month he has had a cough, rhinorrhea, and worsening shortness of breath. He states that today he developed myalgias. He denies any fever. Denies chest pain. Denies nausea, vomiting, diarrhea, abdominal pain. Denies travel or sick contacts. He reports an episode of chills while in the ED but denies any fevers at home. Patient states that he had a recent cardiac cath after last admission at [facility] and told that everything was fine. He states that the only medication he takes at home is for gout. In the ED he was awake, alert and in mild respiratory distress which improved on supplemental oxygen. He denies any chest pain on exam. Vital Signs Period Temp Pulse Resp BP Sys/Cardona Pulse Ox Last 24 Hr 97.5 F-98.5 F 43-82 15-22 116-151/53-91 98-100 GENERAL: NAD, awake, alert, and fully oriented, with 2 liters of nasal cannula HEENT: PERRLA, sclera anicteric, skin hyperpigmentation noted on nose, dry mucosa, no posterior oropharynx or buccal erythema NECK: Structurally intact, no JVD, soft. LUNGS: Good inspiratory effort with mild crackles at bases bilaterally. No accessory muscle use. On 2LNC, 90s% HEART: RRR, normal S1 and S2 without murmur ABDOMEN: Soft, NT/ND, normoactive bowel sounds, no guarding, no suprapubic tenderness MUSCULOSKELETAL: No CVA tenderness. EXTREMITIES: dry scaly skin on bilateral lower extremities NEUROLOGICAL: Strength 5/5 in all upper extremity areas, strength 4/5 bilaterally in lower extremities. Sensation intact in both upper extremities. Normal speech. Gait not observed PSYCHIATRIC: Cooperative. Good eye contact. Appropriate mood and affect. SKIN: Warm, dry, clear scaling skin b/l in lower extremities with chronic venous stasis changes noted. Laboratory Results - last 24 hr 04/21/19 04/21/19 04/21/19 15:45 15:45 15:45 WBC 14.3 H RBC 4.42 Hgb 14.1 Hct 42.0 D MCV 95.0 MCH 31.9 MCHC 33.6 RDW 15.2 Plt Count 195 D MPV 8.5 Absolute Neuts (auto) 10.6 H Neutrophils % 73.8 Lymphocytes % 9.6 Monocytes % 6.2 Eosinophils % 9.6 H D Basophils % 0.8 Nucleated RBC % 0 PT with INR 14.30 H INR 1.21 H PTT (Actin FS) 38.0 H Sodium 140 Potassium 4.5 Chloride 108 H Carbon Dioxide 24 Anion Gap 8 BUN 36.8 H Creatinine 1.6 H Est GFR (CKD-EPI)AfAm 48.47 Est GFR (CKD-EPI)NonAf 41.82 Random Glucose 144 H Hemoglobin A1c % Calcium 8.9 Magnesium 2.2 Total Bilirubin 0.6 AST 35 ALT 35 Alkaline Phosphatase 261 H Creatine Kinase 88 Troponin I < 0.02 B-Natriuretic Peptide 3022.9 H Total Protein 8.7 H Albumin 3.4 Triglycerides Cholesterol Total LDL Cholesterol HDL Cholesterol TSH 1.82 Urine Color Urine Appearance Urine pH Ur Specific [place] Urine Protein Urine Glucose (UA) Urine Ketones Urine Blood Urine Nitrite Urine Bilirubin Urine Urobilinogen Ur Leukocyte Esterase 04/22/19 04/22/19 04/22/19 02:38 08:44 08:44 WBC 13.7 H RBC 4.11 Hgb 13.2 Hct 39.4 MCV 95.7 MCH 32.1 MCHC 33.5 RDW 15.2 Plt Count 169 MPV 8.4 Absolute Neuts (auto) 9.7 H Neutrophils % 71.0 Lymphocytes % 9.7 Monocytes % 5.4 Eosinophils % 13.2 H Basophils % 0.7 Nucleated RBC % 0 PT with INR INR PTT (Actin FS) Sodium 142 Potassium 4.3 Chloride 108 H Carbon Dioxide 27 Anion Gap 6 L BUN 38.9 H Creatinine 1.3 Est GFR (CKD-EPI)AfAm 62.30 Est GFR (CKD-EPI)NonAf 53.75 Random Glucose 119 H Hemoglobin A1c % Calcium 8.6 Magnesium 2.1 Total Bilirubin 0.8 AST 30 ALT 31 Alkaline Phosphatase 239 H Creatine Kinase Troponin I 0.04 B-Natriuretic Peptide Total Protein 8.1 Albumin 3.1 L Triglycerides 53 Cholesterol 109 Total LDL Cholesterol 53 HDL Cholesterol 45 TSH Urine Color Urine Appearance Urine pH Ur Specific [place] Urine Protein Urine Glucose (UA) Urine Ketones Urine Blood Urine Nitrite Urine Bilirubin Urine Urobilinogen Ur Leukocyte Esterase 04/22/19 04/22/19 04/22/19 08:44 10:00 10:00 WBC RBC Hgb Hct MCV MCH MCHC RDW Plt Count MPV Absolute Neuts (auto) Neutrophils % Lymphocytes % Monocytes % Eosinophils % Basophils % Nucleated RBC % PT with INR INR PTT (Actin FS) Sodium Potassium Chloride Carbon Dioxide Anion Gap BUN Creatinine Est GFR (CKD-EPI)AfAm Est GFR (CKD-EPI)NonAf Random Glucose Hemoglobin A1c % 7.1 H Calcium Magnesium Total Bilirubin AST ALT Alkaline Phosphatase Creatine Kinase Troponin I 0.02 B-Natriuretic Peptide Total Protein Albumin Triglycerides Cholesterol Total LDL Cholesterol HDL Cholesterol TSH Urine Color Yellow Urine Appearance Clear Urine pH 5.0 Ur Specific [place] 1.017 Urine Protein Negative Urine Glucose (UA) Negative Urine Ketones Negative Urine Blood Negative Urine Nitrite Negative Urine Bilirubin Negative Urine Urobilinogen 0.2 Ur Leukocyte Esterase Negative Active Medications Generic Name Dose Route Start Last Admin Trade Name Freq PRN Reason Stop Dose Admin Apixaban 5 mg 04/22/19 22:00 Eliquis - PO BID [facility]UCHO Aspirin 81 mg 04/22/19 10:00 04/22/19 10:21 Ecotrin - PO 81 mg DAILY [facility] Administration Atorvastatin Calcium 40 mg 04/21/19 22:00 04/21/19 22:41 Lipitor - PO 40 mg HS [facility] Administration Carvedilol 3.125 mg 04/21/19 22:00 04/21/19 22:40 Coreg - PO 3.125 mg BID [facility] Administration Furosemide 40 mg 04/22/19 10:00 04/22/19 10:21 Lasix Injection - IVPUSH 40 mg DAILY [facility] Administration Azithromycin 500 mg in 250 mls @ 250 mls/hr 04/22/19 10:45 04/22/19 14:19 Zithromax 500mg Ivpb (Pre-Docked) IVPB 250 mls/hr DAILY [facility] Administration Insulin Aspart 1 vial 04/22/19 16:30 Novolog Vial Sliding Scale - SQ ACHS [facility] Protocol ASSESSMENT/PLAN: Problem List - Problems (1) Irregular heart rhythm Assessment/Plan: ekg: read at afib/aflutter with 1st deg av block, seen by cardiology and started on eliquis 5 bid. coreq on hold Code(s): I49.9 - CARDIAC ARRHYTHMIA, UNSPECIFIED (2) Diastolic CHF Assessment/Plan: patient with increasing shortness of breath requiring supplemental oxygen. not home oxygen dependent. states he had a recent cardiac cath without any acute findings. On last admission, he was started on coreq, along with a statin however he states he was not taking this medication after discharge. continue to monitor intake and output supplemental oxygen to maintain oxygen above 92% on supplemental oxygen monitor daily weights on lasix 40mg daily echo ordered and pending Code(s): I50.30 - UNSPECIFIED DIASTOLIC (CONGESTIVE) HEART FAILURE (3) Hypertension Assessment/Plan: patient denies any anti hypertensive medications currently. coreq being held for bradycardia Code(s): I10 - ESSENTIAL (PRIMARY) HYPERTENSION (4) Pre-diabetes Assessment/Plan: hmga1c 7.1. start on novolog and monitor will need repeat a1c as an outpatient to confirm diabetes. Code(s): R73.03 - PREDIABETES (5) Hyperlipidemia Assessment/Plan: on statin therapy Code(s): E78.5 - HYPERLIPIDEMIA, UNSPECIFIED (6) Shortness of breath Assessment/Plan: likely in the setting of acute chf exacerbation no wbc elevation, and remains afebrile on supplemental oxygen @ 2 liters had one episode of chills in the ED with rhinorrhea, started on azithromycin, will defer to pulm on continuation of azithromycin. blood cultures pending [facility] prn Code(s): R06.02 - SHORTNESS OF BREATH (7) Alkaline phosphatase elevation Assessment/Plan: monitor on daily labs, if continues to rise, may need a GI evaluation Code(s): R74.8 - ABNORMAL LEVELS OF OTHER SERUM ENZYMES (8) DVT prophylaxis Assessment/Plan: on eliquis bid Code(s): Z29.9 - ENCOUNTER FOR PROPHYLACTIC MEASURES, UNSPECIFIED Visit type - Emergency Visit Emergency Visit: Yes ED Registration Date: 04/21/19 Care time: The patient presented to the Emergency Department on the above date and was hospitalized for further evaluation of their emergent condition. - New Patient This patient is new to me today: No - Critical Care Critical Care patient: No - Discharge Referral Referred to [facility] No
[2019-04-22] MEDS: INSULIN SLIDING SCALE (NOVOLOG) 1 VIAL SQ SCH ×2 (17:45→21:33)
[2019-04-22] MEDS: APIXABAN 5 MG TABLET PO SCH (21:30)
[2019-04-22] MEDS: ATORVASTATIN CA 40 MG TABLET (FP) PO SCH (21:30)
[2019-04-22] MEDS: CARVEDILOL 3.125 MG TABLET (FP) PO SCH (22:10)
[2019-04-23] MEDS: INSULIN SLIDING SCALE (NOVOLOG) 1 VIAL SQ SCH ×4 (06:12→21:32)
[2019-04-23 07:23] LABS: BASO % 1.2 % (0-2.0); EOS % 13.3 % (0-4.5); HEMATOCRIT 40.3 % (35.4-49); HEMOGLOBIN 13.9 GM/dL (11.7-16.9); LYMPH % 14.6 % (8-40); MCH 32.5 pg (25.7-33.7); MCHC 34.4 g/dl (32.0-35.9); MEAN CELL VOLUME 94.5 fl (80-96); MEAN PLT VOLUME 8.4 fl (7.5-11.1); MONO % 6.6 % (3.8-10.2); NEUT % 64.3 % (42.8-82.8); PLATELET COUNT 170 K/MM3 (134-434); RBC 4.27 M/mm3 (4.00-5.60); RDW 14.8 % (11.9-15.9); WHITE BLOOD COUNT 9.7 K/mm3 (4.0-10.0)
[2019-04-23 07:55] LABS: BLOOD UREA NITROGEN 31.7 mg/dL (7-18); CALCIUM 8.8 mg/dL (8.5-10.1); CREATININE 1.3 mg/dL (0.55-1.3); POTASSIUM 4.2 mmol/L (3.5-5.1); TOT PROT 8.1 g/dl (6.4-8.2)
--- NOTE | 2019-04-23 08:19 | PN ---
Progress Note, Physician Chief Complaint: Pt /o rhinnorhea. States breathing is better History of Present Illness: Patient is a 73 year old male with a significant past medical history of pre diabetes (on no home medications), ventral hernia (with repair 2001) gout. He presents to the ED with complaints of shortness of breath with dyspnea on minimal exertion. The patient reports that for 1 month he has had a cough, rhinorrhea, and worsening shortness of breath. He states that today he developed myalgias. He denies any fever. Denies chest pain. Denies nausea, vomiting, diarrhea, abdominal pain. Denies travel or sick contacts. He reports an episode of chills while in the ED but denies any fevers at home. Patient states that he had a recent cardiac cath after last admission at [facility] and told that ev erything was fine. He states that the only medication he takes at home is for gou - Current Medication List Current Medications: Active Medications Apixaban (Eliquis -) 5 mg PO BID [facility] Last Admin: 04/22/19 21:30 Dose: 5 mg Documented by: Aspirin (Ecotrin -) 81 mg PO DAILY [facility] Last Admin: 04/22/19 10:21 Dose: 81 mg Documented by: Atorvastatin Calcium (Lipitor -) 40 mg PO HS [facility] Last Admin: 04/22/19 21:30 Dose: 40 mg Documented by: Carvedilol (Coreg -) 3.125 mg PO BID [facility] Last Admin: 04/22/19 22:10 Dose: 3.125 mg Documented by: Furosemide (Lasix Injection -) 40 mg IVPUSH DAILY [facility] Last Admin: 04/22/19 10:21 Dose: 40 mg Documented by: Azithromycin (Zithromax 500mg Ivpb (Pre-Docked)) 500 mg in 250 mls @ 250 mls/hr IVPB DAILY [facility] Last Admin: 04/22/19 14:19 Dose: 250 mls/hr Documented by: Insulin Aspart (Novolog Vial Sliding Scale -) 1 vial SQ ACHS [facility]; Protocol Last Admin: 04/23/19 06:12 Dose: Not Given Documented by: - Objective Vital Signs: Vital Signs Temperature 98.1 F 04/23/19 05:29 Pulse Rate 64 04/23/19 05:29 Respiratory Rate 20 04/23/19 05:29 Blood Pressure 156/59 L 04/23/19 05:29 O2 Sat by Pulse Oximetry (%) 96 04/22/19 21:00 Constitutional: Yes: Well Nourished, No Distress, Calm Eyes: Yes: WNL, Conjunctiva Clear HENT: Yes: WNL, Atraumatic, Normocephalic, Other (skin hyperpigmentation noted on nose) Neck: Yes: WNL, Supple, Trachea Midline Cardiovascular: Yes: WNL, Regular Rate and Rhythm Respiratory: Yes: Regular, On Nasal O2 (2-3L), Rales Gastrointestinal: Yes: WNL, Normal Bowel Sounds, Soft, Abdomen, Obese ...Rectal Exam: Yes: Deferred Genitourinary: Yes: WNL Breast(s): Yes: WNL Musculoskeletal: Yes: WNL Extremities: Yes: WNL Edema: Yes Edema: LLE: 1+, RLE: 1+ Peripheral Pulses WNL: Yes Peripheral Pulses: Left Radial: 2+, Right Radial: 2+, Left Doralis Pedis: 2+, Right Dorsalis Pedis: 2+, Left Femoral: 2+, Right Femoral: 2+ Integumentary: Yes: WNL Neurological: Yes: WNL, Alert, Oriented ...Motor Strength: WNL Psychiatric: Yes: WNL Additional Findings/Remarks: TAMMI Screen - TAMMI History Previously diagnosed with Sleep Apnea: No If Yes, currently using CPAP to treat your TAMMI: No - SNORING Do you snore loudly (enough to be heard thru closed doors)?: No - TIRED Do you often feel tired, fatigued, or sleepy during daytime?: Yes - OBSERVED Has anyone observed you stop breathing during your sleep?: Yes - BLOOD PRESSURE Do you have or are being treated for high blood pressure?: Yes - BMI Answer Y if weight exceeds amount listed for your height: No .: HEIGHT & WEIGHT (lbs): 4'10" 167lbs; 4'11" 175 lbs; 5'0" 179lbs;. 5'1" 185lbs; 5'2" 191lbs; 5'3" 197lbs;. 5'4" 204lbs; 5'5" 210lbs; 5'6" 216lbs;. 5'7" 223lbs; 5'8" 230lbs; 5'9" 237lbs;. 5'10" 243lbs; 5'11" 250lbs; 6' 258lbs;. 6'1" 265lbs; 6'2" 272lbs; 6'3" 279lbs;. 6'4" 287lbs; 6'5" 295lbs - AGE Is your age over 50 yrs old?: Yes - NECK CIRCUMFERENCE Neck Circumference 40cm: Yes - GENDER Male: Yes - SCORE Total Score: 6 Score Interpretation: High Risk of TAMMI .: Interpretation: Score 0-2: Low Risk TAMMI. Score 3-4: Intermediate Risk TAMMI. Score 5-8: High Risk TAMMI Labs: CBC, BMP 04/23/19 06:00 INR, PTT INR 1.21 (0.83-1.09) H 04/21/19 15:45 - ....Imaging Chest X-ray: Report Reviewed (increased PVC on CXR) Problem List - Problems (1) Afib Assessment/Plan: AF/flutter om tele [facility] cardiology following Code(s): I48.91 - UNSPECIFIED ATRIAL FIBRILLATION (2) Atrial flutter Code(s): I48.92 - UNSPECIFIED ATRIAL FLUTTER (3) Prophylactic measure Assessment/Plan: FEN Fluids: adequate PO intake, no additional IVF needed Electrolytes: monitor & replete as needed Nutrition: low fat diet DVT moderate risk c/w apixaban Dispo Maintain on tele full code discharge planning Code(s): Z29.9 - ENCOUNTER FOR PROPHYLACTIC MEASURES, UNSPECIFIED (4) Alkaline phosphatase elevation Assessment/Plan: AP 212 trending down avoid hepatotoxic agents Code(s): R74.8 - ABNORMAL LEVELS OF OTHER SERUM ENZYMES (5) Diastolic CHF Assessment/Plan: c/w lasix PO Code(s): I50.30 - UNSPECIFIED DIASTOLIC (CONGESTIVE) HEART FAILURE (6) Hyperlipidemia Assessment/Plan: c/w lipiotr low fat diet Code(s): E78.5 - HYPERLIPIDEMIA, UNSPECIFIED (7) Hypertension Assessment/Plan: BP well controlled Code(s): I10 - ESSENTIAL (PRIMARY) HYPERTENSION (8) Pre-diabetes Assessment/Plan: BGM AC/HS with novolog sliding scale Code(s): R73.03 - PREDIABETES (9) Shortness of breath Assessment/Plan: resolved c/w supplemental O@ to maintain SPO2 >88% duo nebs PRN c/w azithromycin Code(s): R06.02 - SHORTNESS OF BREATH (10) TAMMI (obstructive sleep apnea) Assessment/Plan: sleep scale done and high risk for TAMMI Code(s): G47.33 - OBSTRUCTIVE SLEEP APNEA (ADULT) (PEDIATRIC) Visit type - Emergency Visit Emergency Visit: Yes ED Registration Date: 04/21/19 Care time: The patient presented to the Emergency Department on the above date and was hospitalized for further evaluation of their emergent condition. - New Patient This patient is new to me today: Yes Date on this admission: 04/23/19 - Critical Care Critical Care patient: No - Discharge Referral Referred to [facility] No
[2019-04-23] MEDS: FUROSEMIDE 40 MG/4 ML INJECTABLE VIAL IVPUSH SCH (10:22)
[2019-04-23] MEDS: ASPIRIN COATED 81 MG TABLET.EC PO SCH (10:22)
[2019-04-23] MEDS: CARVEDILOL 3.125 MG TABLET (FP) PO SCH (10:23)
[2019-04-23] MEDS: APIXABAN 5 MG TABLET PO SCH ×2 (10:23→21:35)
[2019-04-23] MEDS: AZITHROMYCIN IVPB 500 MG/250 ML BAG IVPB SCH (10:23)
--- NOTE | 2019-04-23 10:24 | PN ---
Progress Note, Physician History of Present Illness: pulmonary alert,sitting up in bed still c/o sob - Current Medication List Current Medications: Active Medications Apixaban (Eliquis -) 5 mg PO BID [facility] Last Admin: 04/22/19 21:30 Dose: 5 mg Documented by: Aspirin (Ecotrin -) 81 mg PO DAILY [facility] Last Admin: 04/22/19 10:21 Dose: 81 mg Documented by: Atorvastatin Calcium (Lipitor -) 40 mg PO HS [facility] Last Admin: 04/22/19 21:30 Dose: 40 mg Documented by: Carvedilol (Coreg -) 3.125 mg PO BID [facility] Last Admin: 04/22/19 22:10 Dose: 3.125 mg Documented by: Furosemide (Lasix Injection -) 40 mg IVPUSH DAILY [facility] Last Admin: 04/22/19 10:21 Dose: 40 mg Documented by: Azithromycin (Zithromax 500mg Ivpb (Pre-Docked)) 500 mg in 250 mls @ 250 mls/hr IVPB DAILY [facility] Last Admin: 04/22/19 14:19 Dose: 250 mls/hr Documented by: Insulin Aspart (Novolog Vial Sliding Scale -) [address] [facility]; Protocol Last Admin: 04/23/19 06:12 Dose: Not Given Documented by: - Objective Vital Signs: Vital Signs Temperature 98.5 F 04/23/19 09:11 Pulse Rate 65 04/23/19 09:11 Respiratory Rate 20 04/23/19 09:11 Blood Pressure 135/67 04/23/19 09:11 O2 Sat by Pulse Oximetry (%) 96 04/22/19 21:00 Constitutional: Yes: Well Nourished, Calm Eyes: Yes: WNL HENT: Yes: WNL Neck: Yes: WNL Cardiovascular: Yes: Regular Rate and Rhythm, S1, S2 Respiratory: Yes: Rales (robin crackles 1/3 up) Gastrointestinal: Yes: Normal Bowel Sounds, Soft Extremities: Yes: WNL Edema: Yes Labs: CBC, BMP 04/23/19 06:00 04/23/19 06:00 INR, PTT INR 1.21 (0.83-1.09) H 04/21/19 15:45 Assessment/Plan Problem List - Problems (1) Diastolic CHF Code(s): I50.30 - UNSPECIFIED DIASTOLIC (CONGESTIVE) HEART FAILURE (2) Hyperlipidemia Code(s): E78.5 - HYPERLIPIDEMIA, UNSPECIFIED (3) Hypertension Code(s): I10 - ESSENTIAL (PRIMARY) HYPERTENSION (4) Pre-diabetes Code(s): R73.03 - PREDIABETES (5) Shortness of breath Code(s): R06.02 - SHORTNESS OF BREATH (6) Influenza A Code(s): J10.1 - FLU DUE TO OTH IDENT INFLUENZA VIRUS W OTH RESP MANIFEST Assessment/Plan Lasix O2 as needed Monitor off ABX Follow I & O Daily weights Sleep Screen No smoking Outpatient PFTs DR ARCINIEGA TAMMI Screen - TAMMI History Previously diagnosed with Sleep Apnea: No If Yes, currently using CPAP to treat your TAMMI: No - SNORING Do you snore loudly (enough to be heard thru closed doors)?: No - TIRED Do you often feel tired, fatigued, or sleepy during daytime?: Yes - OBSERVED Has anyone observed you stop breathing during your sleep?: Yes - BLOOD PRESSURE Do you have or are being treated for high blood pressure?: Yes - BMI Answer Y if weight exceeds amount listed for your height: No .: HEIGHT & WEIGHT (lbs): 4'10" 167lbs; 4'11" 175 lbs; 5'0" 179lbs;. 5'1" 185lbs; 5'2" 191lbs; 5'3" 197lbs;. 5'4" 204lbs; 5'5" 210lbs; 5'6" 216lbs;. 5'7" 223lbs; 5'8" 230lbs; 5'9" 237lbs;. 5'10" 243lbs; 5'11" 250lbs; 6' 258lbs;. 6'1" 265lbs; 6'2" 272lbs; 6'3" 279lbs;. 6'4" 287lbs; 6'5" 295lbs - AGE Is your age over 50 yrs old?: Yes - NECK CIRCUMFERENCE Neck Circumference 40cm: Yes - GENDER Male: Yes - SCORE Total Score: 6 Score Interpretation: High Risk of TAMMI .: Interpretation: Score 0-2: Low Risk TAMMI. Score 3-4: Intermediate Risk TAMMI. Score 5-8: High Risk TAMMI
--- NOTE | 2019-04-23 10:46 | PN ---
Progress Note, Physician History of Present Illness: pt seen and examined today in [facility]. no overnight events. no new complaints. - Current Medication List Current Medications: Active Medications Apixaban (Eliquis -) 5 mg PO BID [facility] Last Admin: 04/23/19 10:23 Dose: 5 mg Documented by: Aspirin (Ecotrin -) 81 mg PO DAILY [facility] Last Admin: 04/23/19 10:22 Dose: 81 mg Documented by: Atorvastatin Calcium (Lipitor -) 40 mg PO HS [facility] Last Admin: 04/22/19 21:30 Dose: 40 mg Documented by: Carvedilol (Coreg -) 3.125 mg PO BID [facility] Last Admin: 04/23/19 10:23 Dose: 3.125 mg Documented by: Furosemide (Lasix Injection -) 40 mg IVPUSH DAILY [facility] Last Admin: 04/23/19 10:22 Dose: 40 mg Documented by: Azithromycin (Zithromax 500mg Ivpb (Pre-Docked)) 500 mg in 250 mls @ 250 mls/hr IVPB DAILY [facility] Last Admin: 04/23/19 10:23 Dose: 250 mls/hr Documented by: Insulin Aspart (Novolog Vial Sliding Scale -) 1 vial SQ [facility]; Protocol Last Admin: 04/23/19 06:12 Dose: Not Given Documented by: - Objective Vital Signs: Vital Signs Temperature 98.5 F 04/23/19 09:11 Pulse Rate 65 04/23/19 09:11 Respiratory Rate 20 04/23/19 09:11 Blood Pressure 135/67 04/23/19 09:11 O2 Sat by Pulse Oximetry (%) 96 04/22/19 21:00 Constitutional: Yes: No Distress, Calm, Severe Distress Eyes: Yes: Conjunctiva Clear HENT: Yes: Atraumatic, Normocephalic Neck: Yes: Supple, Trachea Midline Cardiovascular: Yes: Pulse Irregular, S1, S2. No: Regular Rate and Rhythm, Bradycardia, Tachycardia, Bruit, JVD, Gallop, Murmur, Rub, S3, S4, Varicosities Respiratory: Yes: Regular, Rhonchi, Wheezes. No: Rales, SOB Gastrointestinal: Yes: Normal Bowel Sounds, Soft, Hernia. No: Distention, Tenderness Musculoskeletal: Yes: WNL Extremities: Yes: WNL Edema: No Peripheral Pulses WNL: Yes Peripheral Pulses: Left Doralis Pedis: 2+, Right Dorsalis Pedis: 2+ Neurological: Yes: Alert, Oriented Psychiatric: Yes: Alert, Oriented Labs: CBC, BMP 04/23/19 06:00 04/23/19 06:00 INR, PTT INR 1.21 (0.83-1.09) H 04/21/19 15:45 - ....Imaging Chest X-ray: Report Reviewed, Image Reviewed EKG: Report Reviewed, Image Reviewed Other: Report Reviewed, Image Reviewed (tele-aflutter, Hr adeq) Assessment/Plan 73 M with HfPEF was admitted with progressive SOB and newly diagnosed atrial flutter. SOB -likely multifactorial -component of acute on chronic diastolic chf possibly precipitated by aflutter -presume component of acute on chronic lung disease -currently euvolemic -change IV lasix to po -Echo showed normal LV function without valvular pathology and normal RV functio n. -Would consider a CT chest to evaluate better Atrial flutter-newly diagnosed -HR is adequately controlled without AV kavon blockers -bblocker is on hold for periods of bradycardia -cont eliquis for thromboembolic ppx
[2019-04-23] MEDS ORDERED: dilTIAZem HCL 50 MG/10 ML - 10 ML VIAL IVPUSH PRN (11:53)
[2019-04-23] MEDS ORDERED: SODIUM CHLORIDE NASAL SPRAY 44 ML BOTTLE NS PRN (15:30)
[2019-04-23] MEDS ORDERED: PT OWN MED DRAWER 7, Y5N ONE (17:36)
[2019-04-23] MEDS: ATORVASTATIN CA 40 MG TABLET (FP) PO SCH (21:35)
[2019-04-24] MEDS: INSULIN SLIDING SCALE (NOVOLOG) 1 VIAL SQ SCH ×4 (07:31→22:06)
[2019-04-24 07:55] LABS: EOS % 9.8 % (0-4.5); HEMATOCRIT 42.1 % (35.4-49); HEMOGLOBIN 14.2 GM/dL (11.7-16.9); LYMPH % 16.7 % (8-40); MCHC 33.8 g/dl (32.0-35.9); MEAN CELL VOLUME 94.7 fl (80-96); MEAN PLT VOLUME 8.5 fl (7.5-11.1); MONO % 8.3 % (3.8-10.2); NEUT % 64.2 % (42.8-82.8); PLATELET COUNT 206 K/MM3 (134-434); RBC 4.44 M/mm3 (4.00-5.60); RDW 14.8 % (11.9-15.9); WHITE BLOOD COUNT 8.9 K/mm3 (4.0-10.0)
[2019-04-24 07:57] LABS: ALBUMIN 3.2 g/dl (3.4-5.0); BLOOD UREA NITROGEN 33.4 mg/dL (7-18); CALCIUM 8.8 mg/dL (8.5-10.1); CREATININE 1.3 mg/dL (0.55-1.3); TOT PROT 8.5 g/dl (6.4-8.2)
--- NOTE | 2019-04-24 08:11 | PN ---
Progress Note, Physician Chief Complaint: States rhinnorhea and breathing is improved. C/o "gout attack" in left 1st digit. Feels weaker today History of Present Illness: Patient is a 73 year old male with a significant past medical history of pre diabetes (on no home medications), ventral hernia (with repair 2001) gout. He presents to the ED with complaints of shortness of breath with dyspnea on minimal exertion. The patient reports that for 1 month he has had a cough, rhinorrhea, and worsening shortness of breath. He states that today he developed myalgias. He denies any fever. Denies chest pain. Denies nausea, vomiting, diarrhea, abdominal pain. Denies travel or sick contacts. He reports an episode of chills while in the ED but denies any fevers at home. Patient states that he had a recent cardiac cath after last admission at [facility] and told that everything was fine. He states that the only medication he takes at home is for gou - Current Medication List Current Medications: Active Medications Apixaban (Eliquis -) 5 mg PO BID [facility] Last Admin: 04/23/19 21:35 Dose: 5 mg Documented by: Aspirin (Ecotrin -) 81 mg PO DAILY [facility] Last Admin: 04/23/19 10:22 Dose: 81 mg Documented by: Atorvastatin Calcium (Lipitor -) 40 mg PO HS [facility] Last Admin: 04/23/19 21:35 Dose: 40 mg Documented by: Diltiazem HCl (Cardizem Injection -) 5 mg IVPUSH Q4H PRN PRN Reason: TACHYCARDIA Furosemide (Lasix -) 40 mg PO DAILY [facility] Azithromycin (Zithromax 500mg Ivpb (Pre-Docked)) 500 mg in 250 mls @ 250 mls/hr IVPB DAILY [facility] Last Admin: 04/23/19 10:23 Dose: 250 mls/hr Documented by: Insulin Aspart (Novolog Vial Sliding Scale -) 1 vial SQ ACHS [facility]; Protocol Last Admin: 04/24/19 07:31 Dose: Not Given Documented by: Sodium Chloride ([place] Nasal [place] -) 2 spray NS TID PRN PRN Reason: NASAL CONGESTION - Objective Vital Signs: Vital Signs Temperature 97.5 F L 04/24/19 05:00 Pulse Rate 70 04/24/19 05:00 Respiratory Rate 18 04/24/19 05:00 Blood Pressure 138/71 04/24/19 05:00 O2 Sat by Pulse Oximetry (%) 96 04/23/19 20:51 Additional Findings/Remarks: Constitutional: Yes: Well Nourished, No Distress, Calm Eyes: Yes: WNL, Conjunctiva Clear HENT: Yes: WNL, Atraumatic, Normocephalic, Other (skin hyperpigmentation noted on nose) Neck: Yes: WNL, Supple, Trachea Midline Cardiovascular: Yes: WNL, Regular Rate and Rhythm Respiratory: Yes: Regular, On Nasal O2 (2-3L), Rales Gastrointestinal: Yes: WNL, Normal Bowel Sounds, Soft, Abdomen, Obese ...Rectal Exam: Yes: Deferred Genitourinary: Yes: WNL Breast(s): Yes: WNL Musculoskeletal: Yes: WNL Extremities: Yes: left 1st digit knuckle erthyema, TTP Edema: Yes Edema: LLE: 1+, RLE: 1+ Peripheral Pulses WNL: Yes Peripheral Pulses: Left Radial: 2+, Right Radial: 2+, Left Doralis Pedis: 2+, Right Dorsalis Pedis: 2+, Left Femoral: 2+, Right Femoral: 2+ Integumentary: Yes: WNL Neurological: Yes: WNL, Alert, Oriented ...Motor Strength: WNL Psychiatric: Yes: WNL Labs: CBC, BMP 04/24/19 05:55 INR, PTT INR 1.21 (0.83-1.09) H 04/21/19 15:45 Problem List - Problems (1) Afib Assessment/Plan: AF with controlled VR and occasional 3-4 beats NSVT. eliquis BID cardiology following Code(s): I48.91 - UNSPECIFIED ATRIAL FIBRILLATION (2) Atrial flutter Code(s): I48.92 - UNSPECIFIED ATRIAL FLUTTER (3) Prophylactic measure Assessment/Plan: FEN Fluids: adequate PO intake, no additional IVF needed Electrolytes: monitor & replete as needed Nutrition: low fat diet DVT moderate risk c/w apixaban Dispo Maintain on tele full code discharge planning Code(s): Z29.9 - ENCOUNTER FOR PROPHYLACTIC MEASURES, UNSPECIFIED (4) Alkaline phosphatase elevation Assessment/Plan: AP 212 remains the same SPEP/serologies pending Liver US ordered avoid hepatotoxic agents Code(s): R74.8 - ABNORMAL LEVELS OF OTHER SERUM ENZYMES (5) Diastolic CHF Assessment/Plan: c/w lasix PO negative fluid balance c/w daily weights-wy down 6kg since admission Code(s): I50.30 - UNSPECIFIED DIASTOLIC (CONGESTIVE) HEART FAILURE (6) Hyperlipidemia Assessment/Plan: c/w lipiotr low fat diet Code(s): E78.5 - HYPERLIPIDEMIA, UNSPECIFIED (7) Hypertension Assessment/Plan: BP well controlled Code(s): I10 - ESSENTIAL (PRIMARY) HYPERTENSION (8) Pre-diabetes Assessment/Plan: BGM AC/HS with novolog sliding scale BGM well controlled Code(s): R73.03 - PREDIABETES (9) Shortness of breath Assessment/Plan: resolving c/w supplemental O@ to maintain SPO2 >88% duo nebs PRN c/w azithromycin Code(s): R06.02 - SHORTNESS OF BREATH (10) TAMMI (obstructive sleep apnea) Assessment/Plan: sleep scale done and high risk for TAMMI Code(s): G47.33 - OBSTRUCTIVE SLEEP APNEA (ADULT) (PEDIATRIC) (11) Gout attack Assessment/Plan: TTP with eryhema to left 1st MCP restart indomethacin Code(s): M10.9 - GOUT, UNSPECIFIED Visit type - Emergency Visit Emergency Visit: Yes ED Registration Date: 04/21/19 Care time: The patient presented to the Emergency Department on the above date and was hospitalized for further evaluation of their emergent condition. - New Patient This patient is new to me today: No - Critical Care Critical Care patient: No - Discharge Referral Referred to [facility] Med P.C.: No
[2019-04-24 08:31] LABS: INR 1.58 (0.83-1.09); PROTHROMBIN TIME (PATIENT) 18.7 SEC (9.7-13.0)
[2019-04-24 08:32] LABS: ACTIVATED PTT 40.5 SECONDS (25.2-36.5)
[2019-04-24] MEDS ORDERED: PT OWN MED DRAWER 7, Y5N ONE ×3 (09:52→20:50)
[2019-04-24] MEDS: AZITHROMYCIN IVPB 500 MG/250 ML BAG IVPB SCH (09:58)
[2019-04-24] MEDS: ASPIRIN COATED 81 MG TABLET.EC PO SCH (09:58)
[2019-04-24] MEDS: APIXABAN 5 MG TABLET PO SCH ×2 (09:58→22:04)
[2019-04-24] MEDS: FUROSEMIDE 40 MG TABLET (FP) PO SCH (09:58)
--- NOTE | 2019-04-24 10:38 | PN ---
Progress Note, Physician History of Present Illness: pulmonary alert,feeling better,less dyspneic - Current Medication List Current Medications: Active Medications Apixaban (Eliquis -) 5 mg PO BID [facility] Last Admin: 04/24/19 09:58 Dose: 5 mg Documented by: Aspirin (Ecotrin -) 81 mg PO DAILY [facility] Last Admin: 04/24/19 09:58 Dose: 81 mg Documented by: Atorvastatin Calcium (Lipitor -) 40 mg PO HS [facility] Last Admin: 04/23/19 21:35 Dose: 40 mg Documented by: Diltiazem HCl (Cardizem Injection -) 5 mg IVPUSH Q4H PRN PRN Reason: TACHYCARDIA Furosemide (Lasix -) 40 mg PO DAILY [facility] Last Admin: 04/24/19 09:58 Dose: 40 mg Documented by: Azithromycin (Zithromax 500mg Ivpb (Pre-Docked)) 500 mg in 250 mls @ 250 mls/hr IVPB DAILY [facility] Last Admin: 04/24/19 09:58 Dose: 250 mls/hr Documented by: Insulin Aspart (Novolog Vial Sliding Scale -) 1 vial SQ ACHS [facility]; Protocol Last Admin: 04/24/19 07:31 Dose: Not Given Documented by: Sodium Chloride ([place] Nasal [place] -) 2 spray NS TID PRN PRN Reason: NASAL CONGESTION - Objective Vital Signs: Vital Signs Temperature 97.5 F L 04/24/19 05:00 Pulse Rate 70 04/24/19 05:00 Respiratory Rate 18 04/24/19 05:00 Blood Pressure 138/71 04/24/19 05:00 O2 Sat by Pulse Oximetry (%) 96 04/23/19 20:51 Constitutional: Yes: Well Nourished, Calm Eyes: Yes: WNL HENT: Yes: WNL Neck: Yes: WNL Cardiovascular: Yes: Regular Rate and Rhythm, S1, S2 Respiratory: Yes: Rales (bilateral rales1/3 up) Gastrointestinal: Yes: Normal Bowel Sounds, Soft Extremities: Yes: WNL Edema: No Labs: CBC, BMP 04/24/19 05:55 04/24/19 05:55 INR, PTT INR 1.58 (0.83-1.09) H 04/24/19 05:55 Assessment/Plan Problem List - Problems (1) Diastolic CHF Code(s): I50.30 - UNSPECIFIED DIASTOLIC (CONGESTIVE) HEART FAILURE (2) Hyperlipidemia Code(s): E78.5 - HYPERLIPIDEMIA, UNSPECIFIED (3) Hypertension Code(s): I10 - ESSENTIAL (PRIMARY) HYPERTENSION (4) Pre-diabetes Code(s): R73.03 - PREDIABETES (5) Shortness of breath Code(s): R06.02 - SHORTNESS OF BREATH (6) Influenza A Code(s): J10.1 - FLU DUE TO OTH IDENT INFLUENZA VIRUS W OTH RESP MANIFEST Assessment/Plan Lasix O2 as needed Monitor off ABX Follow I & O Daily weights Sleep Screen No smoking Outpatient PFTs chest x-ray am DR ARCINIEGA
--- NOTE | 2019-04-24 11:08 | PN ---
Progress Note, Physician Chief Complaint: Telem AF with controlled VR and occasional 3-4 beats NSVT. No dyspnea at rest. - Current Medication List Current Medications: Active Medications Apixaban (Eliquis -) 5 mg PO BID [facility] Last Admin: 04/24/19 09:58 Dose: 5 mg Documented by: Aspirin (Ecotrin -) 81 mg PO DAILY [facility] Last Admin: 04/24/19 09:58 Dose: 81 mg Documented by: Atorvastatin Calcium (Lipitor -) 40 mg PO HS [facility] Last Admin: 04/23/19 21:35 Dose: 40 mg Documented by: Diltiazem HCl (Cardizem Injection -) 5 mg IVPUSH Q4H PRN PRN Reason: TACHYCARDIA Furosemide (Lasix -) 40 mg PO DAILY [facility] Last Admin: 04/24/19 09:58 Dose: 40 mg Documented by: Azithromycin (Zithromax 500mg Ivpb (Pre-Docked)) 500 mg in 250 mls @ 250 mls/hr IVPB DAILY [facility] Last Admin: 04/24/19 09:58 Dose: 250 mls/hr Documented by: Insulin Aspart (Novolog Vial Sliding Scale -) 1 vial SQ [facility]; Protocol Last Admin: 04/24/19 07:31 Dose: Not Given Documented by: Sodium Chloride ([place] Nasal [place] -) 2 spray NS TID PRN PRN Reason: NASAL CONGESTION - Objective Vital Signs: Vital Signs Temperature 97.5 F L 04/24/19 05:00 Pulse Rate 70 04/24/19 05:00 Respiratory Rate 18 04/24/19 05:00 Blood Pressure 138/71 04/24/19 05:00 O2 Sat by Pulse Oximetry (%) 96 04/23/19 20:51 Constitutional: Yes: Well Nourished, No Distress Eyes: Yes: Conjunctiva Clear HENT: Yes: Atraumatic, Normocephalic Neck: Yes: Supple, Trachea Midline Cardiovascular: Yes: Pulse Irregular, JVD, S1, S2 Respiratory: Yes: Regular, Rales Gastrointestinal: Yes: Normal Bowel Sounds Edema: No Labs: CBC, BMP 04/24/19 05:55 04/24/19 05:55 INR, PTT INR 1.58 (0.83-1.09) H 04/24/19 05:55 Problem List - Problems (1) Atrial flutter Code(s): I48.92 - UNSPECIFIED ATRIAL FLUTTER (2) Diastolic CHF Code(s): I50.30 - UNSPECIFIED DIASTOLIC (CONGESTIVE) HEART FAILURE Assessment/Plan 73 M with new onset of Aflutter and dyspnea, elevated BNP. No history of CAD. Normal LV function. Continue Oral diuretics HR is controlled off AV kavon blockers. Check Phos and Mg. Follow up CXR tomorrow. Can consider Chest CT.
[2019-04-24] MEDS: INDOMETHACIN 50 MG CAPSULE PO SCH ×2 (14:57→22:04)
[2019-04-24 17:36] LABS: MAGNESIUM 2.2 mg/dL (1.8-2.4); PHOSPHOROUS 3.5 mg/dL (2.5-4.9)
[2019-04-24 21:09] LABS: INR 1.59 (0.83-1.09); PROTHROMBIN TIME (PATIENT) 18.8 SEC (9.7-13.0)
[2019-04-24] MEDS: ATORVASTATIN CA 40 MG TABLET (FP) PO SCH (22:04)
[2019-04-25] MEDS: INSULIN SLIDING SCALE (NOVOLOG) 1 VIAL SQ SCH ×4 (06:19→22:00)
[2019-04-25] MEDS: INDOMETHACIN 50 MG CAPSULE PO SCH ×3 (06:57→22:00)
[2019-04-25 07:29] LABS: BASO % 1.1 % (0-2.0); EOS % 11.9 % (0-4.5); HEMOGLOBIN 14.1 GM/dL (11.7-16.9); LYMPH % 20.3 % (8-40); MCH 32.1 pg (25.7-33.7); MCHC 34.3 g/dl (32.0-35.9); MEAN CELL VOLUME 93.4 fl (80-96); MEAN PLT VOLUME 8.4 fl (7.5-11.1); MONO % 8.3 % (3.8-10.2); NEUT % 58.4 % (42.8-82.8); PLATELET COUNT 216 K/MM3 (134-434); RBC 4.39 M/mm3 (4.00-5.60); RDW 14.7 % (11.9-15.9); WHITE BLOOD COUNT 7.2 K/mm3 (4.0-10.0)
[2019-04-25 07:40] LABS: ALBUMIN 3.1 g/dl (3.4-5.0); BILIRUBIN,TOTAL 0.8 mg/dL (0.2-1); BLOOD UREA NITROGEN 41.9 mg/dL (7-18); CALCIUM 8.7 mg/dL (8.5-10.1); CREATININE 1.5 mg/dL (0.55-1.3); MAGNESIUM 2.1 mg/dL (1.8-2.4); POTASSIUM 3.7 mmol/L (3.5-5.1); TOT PROT 8.4 g/dl (6.4-8.2)
--- NOTE | 2019-04-25 08:00 | PN ---
Progress Note, Physician Chief Complaint: left 1st digit swelling /erythema improved. No futher c/o pain. Upset that so many tests are being done. History of Present Illness: Patient is a 73 year old male with a significant past medical history of pre diabetes (on no home medications), ventral hernia (with repair 2001) gout. He presents to the ED with complaints of shortness of breath with dyspnea on minimal exertion. The patient reports that for 1 month he has had a cough, rhinorrhea, and worsening shortness of breath. He states that today he developed myalgias. He denies any fever. Denies chest pain. Denies nausea, vomiting, diarrhea, abdominal pain. Denies travel or sick contacts. He reports an episode of chills while in the ED but denies any fevers at home. Patient states that he had a recent cardiac cath after last admission at [facility] and told that everything was fine. He states that the only medication he takes at home is for gou - Current Medication List Current Medications: Active Medications Apixaban (Eliquis -) 5 mg PO BID [facility] Last Admin: 04/24/19 22:04 Dose: 5 mg Documented by: Aspirin (Ecotrin -) 81 mg PO DAILY [facility] Last Admin: 04/24/19 09:58 Dose: 81 mg Documented by: Atorvastatin Calcium (Lipitor -) 40 mg PO HS [facility] Last Admin: 04/24/19 22:04 Dose: 40 mg Documented by: Diltiazem HCl (Cardizem Injection -) 5 mg IVPUSH Q4H PRN PRN Reason: TACHYCARDIA Furosemide (Lasix -) 40 mg PO DAILY [facility] Last Admin: 04/24/19 09:58 Dose: 40 mg Documented by: Azithromycin (Zithromax 500mg Ivpb (Pre-Docked)) 500 mg in 250 mls @ 250 mls/hr IVPB DAILY [facility] Last Admin: 04/24/19 09:58 Dose: 250 mls/hr Documented by: Indomethacin (Indocin -) 50 mg PO TID [facility] Last Admin: 04/25/19 06:57 Dose: 50 mg Documented by: Insulin Aspart (Novolog Vial Sliding Scale -) 1 vial SQ ACHS [facility]; Protocol Last Admin: 04/25/19 06:19 Dose: Not Given Documented by: Sodium Chloride ([place] Nasal [place] -) 2 spray NS TID PRN PRN Reason: NASAL CONGESTION - Objective Vital Signs: Vital Signs Temperature 97.9 F 04/25/19 05:00 Pulse Rate 66 04/25/19 05:00 Respiratory Rate 20 04/25/19 05:00 Blood Pressure 120/59 L 04/25/19 05:00 O2 Sat by Pulse Oximetry (%) 98 04/24/19 22:00 Additional Findings/Remarks: Constitutional: Yes: Well Nourished, No Distress, Calm Eyes: Yes: WNL, Conjunctiva Clear HENT: Yes: WNL, Atraumatic, Normocephalic, Other (skin hyperpigmentation noted on nose) Neck: Yes: WNL, Supple, Trachea Midline Cardiovascular: Yes: WNL, Regular Rate and Rhythm Respiratory: Yes: Regular, On Nasal O2 (2-3L), Rales Gastrointestinal: Yes: WNL, Normal Bowel Sounds, Soft, Abdomen, Obese ...Rectal Exam: Yes: Deferred Genitourinary: Yes: WNL Breast(s): Yes: WNL Musculoskeletal: Yes: WNL Extremities: Yes: left 1st digit knuckle mild erthyema Edema: Yes Edema: LLE: 1+, RLE: 1+ Peripheral Pulses WNL: Yes Peripheral Pulses: Left Radial: 2+, Right Radial: 2+, Left Doralis Pedis: 2+, Right Dorsalis Pedis: 2+, Left Femoral: 2+, Right Femoral: 2+ Integumentary: Yes: WNL Neurological: Yes: WNL, Alert, Oriented ...Motor Strength: WNL Psychiatric: Yes: WNL Labs: CBC, BMP 04/25/19 06:10 INR, PTT INR 1.59 (0.83-1.09) H 04/24/19 20:00 - ....Imaging Cat Scan: Report Reviewed (Chronic institital lung disease/ COPD changes) Ultrasound: Report Reviewed (Mild fatty liver vx HCD) Problem List - Problems (1) Afib Assessment/Plan: AF with controlled VR eliquis BID cardiology following Code(s): I48.91 - UNSPECIFIED ATRIAL FIBRILLATION (2) Atrial flutter Code(s): I48.92 - UNSPECIFIED ATRIAL FLUTTER (3) Prophylactic measure Assessment/Plan: FEN Fluids: adequate PO intake, no additional IVF needed Electrolytes: monitor & replete as needed Nutrition: low fat diet DVT moderate risk c/w apixaban Dispo Maintain on tele full code discharge planning Code(s): Z29.9 - ENCOUNTER FOR PROPHYLACTIC MEASURES, UNSPECIFIED (4) Alkaline phosphatase elevation Assessment/Plan: AP 203 remains the same SPEP/serologies pending Liver US with fatty liver vs HCD hep serologies pending avoid hepatotoxic agents Code(s): R74.8 - ABNORMAL LEVELS OF OTHER SERUM ENZYMES (5) Diastolic CHF Assessment/Plan: euvolemic to negative fluid balance c/w daily weights-wy down 6kg since admission dieuretcis on hold with rise of cr Code(s): I50.30 - UNSPECIFIED DIASTOLIC (CONGESTIVE) HEART FAILURE (6) Hyperlipidemia Assessment/Plan: c/w lipiotr low fat diet Code(s): E78.5 - HYPERLIPIDEMIA, UNSPECIFIED (7) Hypertension Assessment/Plan: BP well controlled Code(s): I10 - ESSENTIAL (PRIMARY) HYPERTENSION (8) Pre-diabetes Assessment/Plan: BGM AC/HS with novolog sliding scale BGM well controlled Code(s): R73.03 - PREDIABETES (9) Shortness of breath Assessment/Plan: resolved c/w supplemental O2 to maintain SPO2 >88% duo nebs PRN c/w azithromycin Code(s): R06.02 - SHORTNESS OF BREATH (10) TAMMI (obstructive sleep apnea) Assessment/Plan: sleep scale done and high risk for TAMMI Code(s): G47.33 - OBSTRUCTIVE SLEEP APNEA (ADULT) (PEDIATRIC) (11) Gout attack Assessment/Plan: TTP with less ethyema to left 1st MCP restart indomethacin Code(s): M10.9 - GOUT, UNSPECIFIED Visit type - Emergency Visit Emergency Visit: Yes ED Registration Date: 04/21/19 Care time: The patient presented to the Emergency Department on the above date and was hospitalized for further evaluation of their emergent condition. - New Patient This patient is new to me today: No - Critical Care Critical Care patient: No - Discharge Referral Referred to [facility] Med P.C.: No
[2019-04-25] MEDS ORDERED: PT OWN MED DRAWER 7, Y5N ONE ×2 (09:46→13:33)
[2019-04-25] MEDS: AZITHROMYCIN IVPB 500 MG/250 ML BAG IVPB SCH (10:00)
--- NOTE | 2019-04-25 11:11 | PN ---
Progress Note (short form) - Note Progress Note: PULMONARY States breathing is better. CT chest done but not read yet, showing multilobar interstitial changes. 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 Vital Signs Period Temp Pulse Resp BP Sys/Cardona Pulse Ox Last 24 Hr 97.1 F-98.4 F 63-75 20-20 120-148/51-78 98-98 Gen: NAD at rest Heart: RRR Lung: decreased breath sounds at the bases Abd: soft, nontender Ext: no edema CBC, BMP 04/25/19 06:10 04/25/19 06:10 Active Medications Apixaban (Eliquis -) 5 mg PO BID [facility] Last Admin: 04/24/19 22:04 Dose: 5 mg Documented by: Aspirin (Ecotrin -) 81 mg PO DAILY [facility] Last Admin: 04/24/19 09:58 Dose: 81 mg Documented by: Atorvastatin Calcium (Lipitor -) 40 mg PO HS [facility] Last Admin: 04/24/19 22:04 Dose: 40 mg Documented by: Diltiazem HCl (Cardizem Injection -) 5 mg IVPUSH Q4H PRN PRN Reason: TACHYCARDIA Furosemide (Lasix -) 40 mg PO DAILY [facility] Last Admin: 04/24/19 09:58 Dose: 40 mg Documented by: Indomethacin (Indocin -) 50 mg PO TID [facility] Last Admin: 04/25/19 06:57 Dose: 50 mg Documented by: Insulin Aspart (Novolog Vial Sliding Scale -) 1 vial SQ ACHS [facility]; Protocol Last Admin: 04/25/19 06:19 Dose: Not Given Documented by: Sodium Chloride ([place] Nasal [place] -) 2 spray NS TID PRN PRN Reason: NASAL CONGESTION A/P Interstitial Lung Disease Eosinophilia New Onset Atrial Fibrillation LV Diastolic Dysfunction Acute Kidney Injury - send NORM, ANCA - outpt IgE level, PFTs, allergy testing - outpt f/u of chest CT - may need to get rid of the bird - rate controlled - continue anticoagulation
[2019-04-25] MEDS: FUROSEMIDE 40 MG TABLET (FP) PO SCH (13:21)
[2019-04-25] MEDS: ASPIRIN COATED 81 MG TABLET.EC PO SCH (13:21)
[2019-04-25] MEDS: APIXABAN 5 MG TABLET PO SCH ×2 (13:21→22:11)
--- NOTE | 2019-04-25 13:53 | PN ---
Teaching Attending Note Name of Resident: Marilyn King ATTENDING PHYSICIAN STATEMENT I saw and evaluated the patient. I reviewed the resident's note and discussed the case with the resident. I agree with the resident's findings and plan as documented. ASSESSMENT AND PLAN:
--- NOTE | 2019-04-25 13:56 | CONSULT ---
Consult - text type - Consultation Consultation Note: 73 M, remote smoking history, apparent history of Influenzae about 2 months ago, diet controlled DM, ventral hernia (with repair 2001), and gout. Admitted via the ER due to shortness of breath with dyspnea. Reports 1 month he has had a cough and rhinorrhea. CXR: bilateral pleural effusions and congestive changes. - History Source History Provided By: Patient - Past Medical History Pulmonary: Yes: Bronchitis. - Smoking History Smoking history: Never smoked - Allergies Allergies/Adverse Reactions: Allergies Allergy/AdvReac Type Severity Reaction Status Date / Time No Known Allergies Allergy Verified 04/21/19 14:57 - Home Medications Home Medications: Ambulatory Orders Indomethacin 50 mg PO PRN 03/02/18 Albuterol 0.083% Nebulizer Brittany [Ventolin 0.083% Nebulizer Soln -] 1 amp NEB Q4H PRN #1 amp 03/04/18 Aspirin Coated [Ecotrin -] 81 mg PO DAILY #30 tablet.ec 03/04/18 Atorvastatin Ca [Lipitor] 40 mg PO HS #30 tablet 03/04/18 Carvedilol [Coreg -] 3.125 mg PO BID #60 tablet 03/04/18 Cefuroxime Axetil [Ceftin -] 500 mg PO BID #10 tablet 03/04/18 Clopidogrel Bisulfate [Plavix -] 75 mg PO DAILY #30 tablet 03/04/18 Oseltamivir Phosphate [Tamiflu -] 75 mg PO DAILY #6 capsule 03/04/18 Sennosides [Senna -] 2 tab PO HS PRN #15 tablet 03/04/18 Physical Exam Vital Sings: Last Vital Signs Temp Pulse Resp BP Pulse Ox 98 F 72 20 130/78 97 04/25/19 14:00 04/25/19 14:00 04/25/19 14:00 04/25/19 14:00 04/25/19 09:00 Cor: RSR, No murmurs, No gallops Lungs: decreased at bases Abd: Soft, Normal bowel sounds, No organomegaly Ext:No significant edema LABS/MEDS REVIEWED A/P 73 Y/O comes in with shortness of breath CT --Chronic interstitial lung disease/COPD, mediastinal nodes, rt. paratracheal node ? pulmonary venous congestion/ ? pneumonic infiltrates Eosinophilia --noted recently. Not present in 2019 Will check stool O and P Will check strongyloides ab Aill check RF/NORM ? related to CHF
[2019-04-25] MEDS ORDERED: CIPROFLOXACIN HCL 0.3% OPHTH 2.5ML BOTTLE OU SCH (14:00)
--- NOTE | 2019-04-25 16:02 | PN ---
Progress Note, Physician Chief Complaint: Telem AF with controlled VR and occasional 3-4 beats NSVT. No dyspnea - Current Medication List Current Medications: Active Medications Apixaban (Eliquis -) 5 mg PO BID [facility] Last Admin: 04/25/19 13:21 Dose: 5 mg Documented by: Aspirin (Ecotrin -) 81 mg PO DAILY [facility] Last Admin: 04/25/19 13:21 Dose: 81 mg Documented by: Atorvastatin Calcium (Lipitor -) 40 mg PO HS [facility] Last Admin: 04/24/19 22:04 Dose: 40 mg Documented by: Ciprofloxacin (Ciloxan 0.3% Eye Drops -) 2 drop OU Q4HWA [facility] Diltiazem HCl (Cardizem Injection -) 5 mg IVPUSH Q4H PRN PRN Reason: TACHYCARDIA Furosemide (Lasix -) 40 mg PO DAILY [facility] Last Admin: 04/25/19 13:21 Dose: 40 mg Documented by: Indomethacin (Indocin -) 50 mg PO TID [facility] Last Admin: 04/25/19 13:22 Dose: 50 mg Documented by: Insulin Aspart (Novolog Vial Sliding Scale -) 1 vial SQ [facility]; Protocol Last Admin: 04/25/19 12:00 Dose: Not Given Documented by: Sodium Chloride ([place] Nasal [place] -) 2 spray NS TID PRN PRN Reason: NASAL CONGESTION - Objective Vital Signs: Vital Signs Temperature 98 F 04/25/19 14:00 Pulse Rate 72 04/25/19 14:00 Respiratory Rate 20 04/25/19 14:00 Blood Pressure 130/78 04/25/19 14:00 O2 Sat by Pulse Oximetry (%) 97 04/25/19 09:00 Constitutional: Yes: Well Nourished, No Distress Eyes: Yes: Conjunctiva Clear HENT: Yes: Atraumatic, Normocephalic Neck: Yes: Supple, Trachea Midline Cardiovascular: Yes: Pulse Irregular. No: JVD Respiratory: Yes: Rales Edema: No Labs: CBC, BMP 04/25/19 06:10 04/25/19 06:10 INR, PTT INR 1.59 (0.83-1.09) H 04/24/19 20:00 Problem List - Problems (1) Atrial flutter Code(s): I48.92 - UNSPECIFIED ATRIAL FLUTTER (2) Diastolic CHF Code(s): I50.30 - UNSPECIFIED DIASTOLIC (CONGESTIVE) HEART FAILURE Assessment/Plan 73 M with new onset of Aflutter and dyspnea, elevated BNP. No history of CAD. Normal LV function. Chest CT suggesting ILD HR is controlled off AV kavon blockers. Discontinue diuretics. will see as needed Continue ELiquis.
[2019-04-25] MEDS: ATORVASTATIN CA 40 MG TABLET (FP) PO SCH (22:11)
[2019-04-26] MEDS ORDERED: PT OWN MED DRAWER 7, Y5N ONE ×2 (04:49→13:31)
[2019-04-26] MEDS: INDOMETHACIN 50 MG CAPSULE PO SCH ×2 (05:55→13:32)
[2019-04-26] MEDS: INSULIN SLIDING SCALE (NOVOLOG) 1 VIAL SQ SCH ×2 (06:21→12:44)
--- NOTE | 2019-04-26 07:35 | PN ---
Progress Note, Physician History of Present Illness: Patient is a 73 year old male with a significant past medical history of pre diabetes (on no home medications), ventral hernia (with repair 2001) gout. He presents to the ED with complaints of shortness of breath with dyspnea on minimal exertion. The patient reports that for 1 month he has had a cough, rhinorrhea, and worsening shortness of breath. He states that today he developed myalgias. He denies any fever. Denies chest pain. Denies nausea, vomiting, diarrhea, abdominal pain. Denies travel or sick contacts. He reports an episode of chills while in the ED but denies any fevers at home. Patient states that he had a recent cardiac cath after last admission at [facility] and told that everything was fine. He states that the only medication he takes at home is for gou - Current Medication List Current Medications: Active Medications Apixaban (Eliquis -) 5 mg PO BID [facility] Last Admin: 04/25/19 22:11 Dose: 5 mg Documented by: Aspirin (Ecotrin -) 81 mg PO DAILY [facility] Last Admin: 04/25/19 13:21 Dose: 81 mg Documented by: Atorvastatin Calcium (Lipitor -) 40 mg PO HS [facility] Last Admin: 04/25/19 22:11 Dose: 40 mg Documented by: Diltiazem HCl (Cardizem Injection -) 5 mg IVPUSH Q4H PRN PRN Reason: TACHYCARDIA Indomethacin (Indocin -) 50 mg PO TID [facility] Last Admin: 04/26/19 05:55 Dose: 50 mg Documented by: Insulin Aspart (Novolog Vial Sliding Scale -) 1 vial SQ [facility]; Protocol Last Admin: 04/26/19 06:21 Dose: Not Given Documented by: Sodium Chloride ([place] Nasal [place] -) 2 spray NS TID PRN PRN Reason: NASAL CONGESTION - Objective Vital Signs: Vital Signs Temperature 97.9 F 04/26/19 05:00 Pulse Rate 71 04/26/19 05:00 Respiratory Rate 20 04/26/19 05:00 Blood Pressure 152/79 04/26/19 05:00 O2 Sat by Pulse Oximetry (%) 95 04/25/19 21:00 Labs: CBC, BMP 04/25/19 06:10 04/25/19 06:10 INR, PTT INR 1.59 (0.83-1.09) H 04/24/19 20:00 Problem List - Problems (1) Afib Code(s): I48.91 - UNSPECIFIED ATRIAL FIBRILLATION (2) Atrial flutter Code(s): I48.92 - UNSPECIFIED ATRIAL FLUTTER (3) Prophylactic measure Code(s): Z29.9 - ENCOUNTER FOR PROPHYLACTIC MEASURES, UNSPECIFIED (4) Alkaline phosphatase elevation Code(s): R74.8 - ABNORMAL LEVELS OF OTHER SERUM ENZYMES (5) Diastolic CHF Code(s): I50.30 - UNSPECIFIED DIASTOLIC (CONGESTIVE) HEART FAILURE (6) Hyperlipidemia Code(s): E78.5 - HYPERLIPIDEMIA, UNSPECIFIED (7) Hypertension Code(s): I10 - ESSENTIAL (PRIMARY) HYPERTENSION (8) Pre-diabetes Code(s): R73.03 - PREDIABETES (9) Shortness of breath Code(s): R06.02 - SHORTNESS OF BREATH (10) TAMMI (obstructive sleep apnea) Code(s): G47.33 - OBSTRUCTIVE SLEEP APNEA (ADULT) (PEDIATRIC) (11) Gout attack Code(s): M10.9 - GOUT, UNSPECIFIED
[2019-04-26 08:07] LABS: BASO % 0.8 % (0-2.0); HEMATOCRIT 44.9 % (35.4-49); HEMOGLOBIN 15.5 GM/dL (11.7-16.9); LYMPH % 15.6 % (8-40); MCH 32.1 pg (25.7-33.7); MCHC 34.4 g/dl (32.0-35.9); MEAN CELL VOLUME 93.3 fl (80-96); MEAN PLT VOLUME 8.5 fl (7.5-11.1); MONO % 5.4 % (3.8-10.2); NEUT % 69.2 % (42.8-82.8); PLATELET COUNT 239 K/MM3 (134-434); RBC 4.81 M/mm3 (4.00-5.60); RDW 14.4 % (11.9-15.9); WHITE BLOOD COUNT 9.9 K/mm3 (4.0-10.0)
[2019-04-26 08:09] LABS: INR 1.49 (0.83-1.09); PROTHROMBIN TIME (PATIENT) 17.7 SEC (9.7-13.0)
[2019-04-26 08:38] LABS: ALBUMIN 3.4 g/dl (3.4-5.0); CALCIUM 9.3 mg/dL (8.5-10.1); CREATININE 1.3 mg/dL (0.55-1.3); MAGNESIUM 2.3 mg/dL (1.8-2.4); POTASSIUM 3.7 mmol/L (3.5-5.1)
[2019-04-26] MEDS: APIXABAN 5 MG TABLET PO SCH (09:39)
[2019-04-26] MEDS: ASPIRIN COATED 81 MG TABLET.EC PO SCH (09:39)
--- NOTE | 2019-04-26 11:06 | PN ---
Progress Note, Physician History of Present Illness: PULMONARY ALERT,COMFORTABLE,SOB IMPROVED,-CP - Current Medication List Current Medications: Active Medications Apixaban (Eliquis -) 5 mg PO BID [facility] Last Admin: 04/26/19 09:39 Dose: 5 mg Documented by: Aspirin (Ecotrin -) 81 mg PO DAILY [facility] Last Admin: 04/26/19 09:39 Dose: 81 mg Documented by: Atorvastatin Calcium (Lipitor -) 40 mg PO HS [facility] Last Admin: 04/25/19 22:11 Dose: 40 mg Documented by: Diltiazem HCl (Cardizem Injection -) 5 mg IVPUSH Q4H PRN PRN Reason: TACHYCARDIA Indomethacin (Indocin -) 50 mg PO TID [facility] Last Admin: 04/26/19 05:55 Dose: 50 mg Documented by: Insulin Aspart (Novolog Vial Sliding Scale -) 1 vial SQ [facility]; Protocol Last Admin: 04/26/19 06:21 Dose: Not Given Documented by: Sodium Chloride ([place] Nasal [place] -) 2 spray NS TID PRN PRN Reason: NASAL CONGESTION - Objective Vital Signs: Vital Signs Temperature 97.9 F 04/26/19 05:00 Pulse Rate 87 04/26/19 10:36 Respiratory Rate 20 04/26/19 05:00 Blood Pressure 152/79 04/26/19 05:00 O2 Sat by Pulse Oximetry (%) 94 L 04/26/19 10:36 Constitutional: Yes: Well Nourished, Calm Eyes: Yes: WNL HENT: Yes: WNL Neck: Yes: WNL Cardiovascular: Yes: Regular Rate and Rhythm, S1, S2 Respiratory: Yes: Diminished Gastrointestinal: Yes: Normal Bowel Sounds, Soft Extremities: Yes: WNL Edema: No Labs: CBC, BMP 04/26/19 06:28 04/26/19 06:28 INR, PTT INR 1.49 (0.83-1.09) H 04/26/19 06:28 - ....Imaging X-ray: Report Reviewed, Image Reviewed Assessment/Plan Problem List - Problems (1) Diastolic CHF Code(s): I50.30 - UNSPECIFIED DIASTOLIC (CONGESTIVE) HEART FAILURE (2) Hyperlipidemia Code(s): E78.5 - HYPERLIPIDEMIA, UNSPECIFIED (3) Hypertension Code(s): I10 - ESSENTIAL (PRIMARY) HYPERTENSION (4) Pre-diabetes Code(s): R73.03 - PREDIABETES (5) Shortness of breath Code(s): R06.02 - SHORTNESS OF BREATH (6) Influenza A Code(s): J10.1 - FLU DUE TO OTH IDENT INFLUENZA VIRUS W OTH RESP MANIFEST 7. INTERSTITAIL LUNG DISEASE 8 EOSINOPHILIA Assessment/Plan Lasix O2 as needed Daily weights Sleep Screen No smoking Outpatient PFTs Monitor lytes,cbc IGE level outpatient NORM ARCINIEGA
--- NOTE | 2019-04-26 12:57 | DS ---
Physical Exam: SUBJECTIVE: Patient seen and examined OBJECTIVE: Vital Signs Period Temp Pulse Resp BP Sys/Cardona Pulse Ox Last 24 Hr 97.3 F-98 F 54-87 18-20 130-155/61-92 94-95 PHYSICAL EXAM Constitutional: Yes: Well Nourished, No Distress, Calm Eyes: Yes: WNL, Conjunctiva Clear HENT: Yes: WNL, Atraumatic, Normocephalic, Other (skin hyperpigmentation noted on nose) Neck: Yes: WNL, Supple, Trachea Midline Cardiovascular: Yes: WNL, Regular Rate and Rhythm Respiratory: Yes: Regular, On Nasal O2 (2-3L), Rales Gastrointestinal: Yes: WNL, Normal Bowel Sounds, Soft, Abdomen, Obese ...Rectal Exam: Yes: Deferred Genitourinary: Yes: WNL Breast(s): Yes: WNL Musculoskeletal: Yes: WNL Extremities: Yes: left 1st digit knuckle mild erthyema Edema: Yes Edema: LLE: 1+, RLE: 1+ Peripheral Pulses WNL: Yes Peripheral Pulses: Left Radial: 2+, Right Radial: 2+, Left Doralis Pedis: 2+, Right Dorsalis Pedis: 2+, Left Femoral: 2+, Right Femoral: 2+ Integumentary: Yes: WNL Neurological: Yes: WNL, Alert, Oriented ...Motor Strength: WNL Psychiatric: Yes: WNL LABS Laboratory Results - last 24 hr 04/24/19 04/24/19 04/25/19 05:55 05:55 16:43 WBC RBC Hgb Hct MCV MCH MCHC RDW Plt Count MPV Absolute Neuts (auto) Neutrophils % Lymphocytes % Monocytes % Eosinophils % Basophils % Nucleated RBC % ESR PT with INR INR Sodium Potassium Chloride Carbon Dioxide Anion Gap BUN Creatinine Est GFR (CKD-EPI)AfAm Est GFR (CKD-EPI)NonAf POC Glucometer 121 Random Glucose Calcium Magnesium Total Bilirubin AST ALT Alkaline Phosphatase C-Reactive Protein Total Protein Total Protein (PEP) 8.2 Albumin Albumin (PEP) 3.0 Globulin 5.2 H Albumin/Globulin Ratio 0.6 L Beta Globulins 1.4 H EDILBERTO M-Dave Not observed Serum EDILBERTO Interpret IEP IgG 2116 H IEP IgA 1149 H IEP IgM 189 H Rheumatoid Factor 04/25/19 04/26/19 04/26/19 22:50 05:43 06:28 WBC RBC Hgb Hct MCV MCH MCHC RDW Plt Count MPV Absolute Neuts (auto) Neutrophils % Lymphocytes % Monocytes % Eosinophils % Basophils % Nucleated RBC % ESR PT with INR INR Sodium 137 Potassium 3.7 Chloride 98 Carbon Dioxide 26 Anion Gap 13 BUN 44.0 H Creatinine 1.3 Est GFR (CKD-EPI)AfAm 62.30 Est GFR (CKD-EPI)NonAf 53.75 POC Glucometer 121 123 Random Glucose 112 H Calcium 9.3 Magnesium 2.3 Total Bilirubin 1.0 AST 32 ALT 26 Alkaline Phosphatase 204 H C-Reactive Protein 1.5 H Total Protein 9.0 H Total Protein (PEP) Albumin 3.4 Albumin (PEP) Globulin Albumin/Globulin Ratio Beta Globulins EDILBERTO M-Dave Serum EDILBERTO Interpret IEP IgG IEP IgA IEP IgM Rheumatoid Factor 04/26/19 04/26/19 04/26/19 06:28 06:28 06:28 WBC 9.9 RBC 4.81 Hgb 15.5 Hct 44.9 MCV 93.3 MCH 32.1 MCHC 34.4 RDW 14.4 Plt Count 239 MPV 8.5 Absolute Neuts (auto) 6.9 Neutrophils % 69.2 Lymphocytes % 15.6 D Monocytes % 5.4 Eosinophils % 9.0 H Basophils % 0.8 Nucleated RBC % 0 ESR 28 H PT with INR 17.70 H INR 1.49 H Sodium Potassium Chloride Carbon Dioxide Anion Gap BUN Creatinine Est GFR (CKD-EPI)AfAm Est GFR (CKD-EPI)NonAf POC Glucometer Random Glucose Calcium Magnesium Total Bilirubin AST ALT Alkaline Phosphatase C-Reactive Protein Total Protein Total Protein (PEP) Albumin Albumin (PEP) Globulin Albumin/Globulin Ratio Beta Globulins EDILBERTO M-Dave Serum EDILBERTO Interpret IEP IgG IEP IgA IEP IgM Rheumatoid Factor 04/26/19 04/26/19 06:28 11:13 WBC RBC Hgb Hct MCV MCH MCHC RDW Plt Count MPV Absolute Neuts (auto) Neutrophils % Lymphocytes % Monocytes % Eosinophils % Basophils % Nucleated RBC % ESR PT with INR INR Sodium Potassium Chloride Carbon Dioxide Anion Gap BUN Creatinine Est GFR (CKD-EPI)AfAm Est GFR (CKD-EPI)NonAf POC Glucometer 153 Random Glucose Calcium Magnesium Total Bilirubin AST ALT Alkaline Phosphatase C-Reactive Protein Total Protein Total Protein (PEP) Albumin Albumin (PEP) Globulin Albumin/Globulin Ratio Beta Globulins EDILBERTO M-Dave Serum EDILBERTO Interpret IEP IgG IEP IgA IEP IgM Rheumatoid Factor < 10.0 HOSPITAL COURSE: Date of Admission:04/21/19 Date of Discharge: 04/26/19 - Problems (1) Afib Assessment/Plan: AF with controlled VR eliquis BID follow with home open claims representative Code(s): I48.91 - UNSPECIFIED ATRIAL FIBRILLATION (2) Alkaline phosphatase elevation Assessment/Plan: AP 203 remains the same Liver US with fatty liver vs HCD hep serologies sent and pending- Will forward results to Dr Perkins if abnmornal avoid hepatotoxic agents Code(s): R74.8 - ABNORMAL LEVELS OF OTHER SERUM ENZYMES (5) Diastolic CHF Assessment/Plan: euvolemic to negative fluid balance c/w daily weights at thao dieuretcis stopped Code(s): I50.30 - UNSPECIFIED DIASTOLIC (CONGESTIVE) HEART FAILURE (6) Hyperlipidemia Assessment/Plan: c/w lipiotr low fat diet Code(s): E78.5 - HYPERLIPIDEMIA, UNSPECIFIED (7) Hypertension Assessment/Plan: BP well controlled Code(s): I10 - ESSENTIAL (PRIMARY) HYPERTENSION (8) Pre-diabetes Assessment/Plan: diet modifications BGM well controlled Code(s): R73.03 - PREDIABETES (9) Shortness of breath Assessment/Plan: resolved c/w supplemental O2 to maintain SPO2 >88% at home completed abx Code(s): R06.02 - SHORTNESS OF BREATH (10) TAMMI (obstructive sleep apnea) Assessment/Plan: sleep scale done and high risk for TAMMI Code(s): G47.33 - OBSTRUCTIVE SLEEP APNEA (ADULT) (PEDIATRIC) (11) Gout attack Assessment/Plan: TTP with less ethyema to left 1st MCP restart indomethacin and continue Medcially cleared for dc to home with O2 therapy Minutes to complete discharge: 35 Discharge Summary Problems reviewed: Yes Reason For Visit: ACUTE ON CHRONIC CONGESTIVE HEART FAILURE Current Active Problems Afib (Acute) Alkaline phosphatase elevation (Acute) Atrial flutter (Acute) DVT prophylaxis (Acute) Diastolic CHF (Acute) Gout attack (Acute) Hyperlipidemia (Acute) Hypertension (Acute) Irregular heart rhythm (Acute) TAMMI (obstructive sleep apnea) (Acute) Pre-diabetes (Acute) Prophylactic measure (Acute) Shortness of breath (Acute) Hospital Course: (1) Afib Assessment/Plan: AF with controlled VR eliquis BID follow with home open claims representative Code(s): I48.91 - UNSPECIFIED ATRIAL FIBRILLATION (2) Alkaline phosphatase elevation Assessment/Plan: AP 203 remains the same Liver US with fatty liver vs HCD hep serologies sent and pending- Will forward results to Dr Perkins if abnmornal avoid hepatotoxic agents Code(s): R74.8 - ABNORMAL LEVELS OF OTHER SERUM ENZYMES (5) Diastolic CHF Assessment/Plan: euvolemic to negative fluid balance c/w [facility] stopped Code(s): I50.30 - UNSPECIFIED DIASTOLIC (CONGESTIVE) HEART FAILURE (6) Hyperlipidemia Assessment/Plan: c/w lipiotr low fat diet Code(s): E78.5 - HYPERLIPIDEMIA, UNSPECIFIED (7) Hypertension Assessment/Plan: BP well controlled Code(s): I10 - ESSENTIAL (PRIMARY) HYPERTENSION (8) Pre-diabetes Assessment/Plan: diet modifications BGM well controlled Code(s): R73.03 - PREDIABETES (9) Shortness of breath Assessment/Plan: resolved c/w supplemental O2 to maintain SPO2 >88% at home completed abx Code(s): R06.02 - SHORTNESS OF BREATH (10) TAMMI (obstructive sleep apnea) Assessment/Plan: sleep scale done and high risk for TAMMI Code(s): G47.33 - OBSTRUCTIVE SLEEP APNEA (ADULT) (PEDIATRIC) (11) Gout attack Assessment/Plan: TTP with less ethyema to left 1st MCP restart indomethacin and continue Medcially cleared for dc to home with O2 therapy - Instructions Diet, Activity, Other Instructions: DISCHARGE YOUR VISIT You came to the hospital because were having shortness of breath and a runny nose. A chest CT was done that interstitial lung disease (long time lung diseas e) -that could be from your bird. You were seen by a die maker apprentice and the open claims representative. Do not continue to take the lasix until after you see your open claims representative/ primary care provider. MEDICATIONS Please continue to take your home medications as prescribed. There was some changes NEW Eliquis (blood thinner because of the new atrial fibrilliation) NO Lasix Continue the aspirin, indomethacin DIET Continue your home diet. Low fat, low sugar ADDITIONAL CARE Please make an appointment to see your primary care provider, 1 week from today. ADDITIONAL INFORMATION Please call 911 or come directly to the emergency department if you experience unusual headache, vision change, shortness of breath, chest pain, numbness, tingling, loss of alertness/awareness, loss of function, unusual bleeding or any alarming symptoms. Thank you for allowing me to care for you. Nasir Spencer, [facility], [facility] [phone] Referrals: Negrito Yoon MD [Primary Care Provider] - 1 Week (call for apptointment ) - Home Medications Comprehensive Discharge Medication List: Ambulatory Orders Indomethacin 50 mg PO TID 03/02/18 Aripiprazole 5 mg PO DAILY 04/22/19 Apixaban [Eliquis -] 5 mg PO BID #60 tablet 04/26/19 Aspirin Coated [Ecotrin -] 81 mg PO DAILY tablet.ec 04/26/19 Atorvastatin Ca [Lipitor] 40 mg PO HS #30 tablet 04/26/19 Indomethacin [Indocin -] 50 mg PO TID capsule 04/26/19 Prescription Drug Monitoring Program (I-STOP) results: I-STOP not reviewed Problem List - Problems (1) Afib Code(s): I48.91 - UNSPECIFIED ATRIAL FIBRILLATION (2) Atrial flutter Code(s): I48.92 - UNSPECIFIED ATRIAL FLUTTER (3) Prophylactic measure Code(s): Z29.9 - ENCOUNTER FOR PROPHYLACTIC MEASURES, UNSPECIFIED (4) Alkaline phosphatase elevation Code(s): R74.8 - ABNORMAL LEVELS OF OTHER SERUM ENZYMES (5) Diastolic CHF Code(s): I50.30 - UNSPECIFIED DIASTOLIC (CONGESTIVE) HEART FAILURE (6) Hyperlipidemia Code(s): E78.5 - HYPERLIPIDEMIA, UNSPECIFIED (7) Hypertension Code(s): I10 - ESSENTIAL (PRIMARY) HYPERTENSION (8) Pre-diabetes Code(s): R73.03 - PREDIABETES (9) Shortness of breath Code(s): R06.02 - SHORTNESS OF BREATH (10) TAMMI (obstructive sleep apnea) Code(s): G47.33 - OBSTRUCTIVE SLEEP APNEA (ADULT) (PEDIATRIC) (11) Gout attack Code(s): M10.9 - GOUT, UNSPECIFIED This patient is new to me today: No Emergency Visit: Yes ED Registration Date: 04/21/19 Care time: The patient presented to the Emergency Department on the above date and was hospitalized for further evaluation of their emergent condition. Critical Care patient: No - Discharge Referral Referred to [facility] No
[2019-04-26 14:56] VITALS: BP 126/74; PULSE 74; TEMP 98.2
[2019-04-26 15:07] LABS: TOTAL PROTEIN, URINE 17.5 mg/dL (Not Estab.)
[2019-04-29 07:31] LABS: IGA IMMUNOGLOBULIN 1149; IGG QN IMMUNOGLOBULIN 2116; IGM QN SERUM 189
[2019-04-30 17:10] LABS: ATYPICAL pANCA <1:20 titer (Neg:<1:20); C-ANCA <1:20 titer (Neg:<1:20)
== END 2019-04-26 15:55 | disposition home or self-care (01) | DRG 308 ==
LOC: JER 14:36 → JERBED 17:23 → J4W 04-22 14:48
PROVIDERS: ADMIT Internal Medicine; ATTEND Nurse Practitioner Acute Care
DX: I48.91 Unspecified atrial fibrillation (principal); I50.33 Acute on chronic diastolic (congestive) heart failure; J84.9 Interstitial pulmonary disease, unspecified; N17.9 Acute kidney failure, unspecified; I48.92 Unspecified atrial flutter; I47.1 Supraventricular tachycardia; I11.0 Hypertensive heart disease with heart failure; R73.03 Prediabetes; G47.33 Obstructive sleep apnea (adult) (pediatric); D72.1 Eosinophilia; E78.5 Hyperlipidemia, unspecified; M10.9 Gout, unspecified; E66.9 Obesity, unspecified; Z68.29 Body mass index [BMI] 29.0-29.9, adult
CPT/HCPCS: 36415; 36600; 71045-TC-FY; 71250-TC; 76705-TC; 80053; 80061; 81003; 82375; 82550; 82784; 82803; 82962; 82977; 83036; 83050; 83520; 83721; 83735; 83880; 84100; 84155; 84156; 84157; 84165; 84443; 84484; 85025; 85610; 85651; 85730; 86038; 86140; 86256; 86431; 86682; 86705; 86708; 86803; 87040; 87086; 87186; 87350; 87804; 93005; 93010; 93306-TC; 94761; 97116-GP; 97161-GP; 99285-25; J1644

== ENCOUNTER 2020-02-12 11:10 | Inpatient (IN) | payer OTHER, MEDICARE ==
[2020-02-12 13:06] LABS: EOS % 19.2 % (0-4.5); HEMATOCRIT 44.4 % (35.4-49); HEMOGLOBIN 14.7 GM/dL (11.7-16.9); LYMPH % 17.5 % (8-40); MCH 31.1 pg (25.7-33.7); MEAN CELL VOLUME 94.4 fl (80-96); MEAN PLT VOLUME 9.1 fl (7.5-11.1); MONO % 4.9 % (3.8-10.2); NEUT % 57.4 % (42.8-82.8); PLATELET COUNT 196 K/MM3 (134-434); RBC 4.71 M/mm3 (4.00-5.60); RDW 14.4 % (11.9-15.9); WHITE BLOOD COUNT 9.1 K/mm3 (4.0-10.0)
[2020-02-12 13:10] LABS: INR 1.18 (0.83-1.09); PROTHROMBIN TIME (PATIENT) 14.2 SEC (9.7-13.0)
[2020-02-12 13:17] LABS: ACTIVATED PTT 35.5 SECONDS (25.2-36.5)
[2020-02-12 13:18] LABS: VENOUS BASE EXCESS 0.6 mmol/L (-2-2); VENOUS O2 SATURATION 35.2 % (70-80); VENOUS PCO2 52.8 mmHg (38-52); VENOUS PH 7.335 (7.310-7.410)
[2020-02-12 13:56] LABS: EPI CELLS 4 /uL (0-25.1); HYALINE CASTS 1 /uL (0-3.1); URINE APPEARANCE CLEAR; URINE BACTERIA 86 /uL (0-1359); URINE BILIRUBIN NEGATIVE (NEGATIVE); URINE COLOR YELLOW; URINE GLUCOSE (UA) NEGATIVE (NEGATIVE); URINE KETONE NEGATIVE (NEGATIVE); URINE LEUK ESTERASE 1+ (NEGATIVE); URINE NITRITE NEGATIVE (NEGATIVE); URINE PROTEIN NEGATIVE (NEGATIVE); URINE RBC 7 /uL (0-23.9); URINE UROBILINOGEN 0.2 mg/dL (0.2-1.0); URINE WBC 16 /uL (0-25.8)
[2020-02-12 14:02] LABS: CALCIUM 9.1 mg/dL (8.5-10.1)
[2020-02-12 14:03] LABS: ALBUMIN 3.2 g/dl (3.4-5.0); BLOOD UREA NITROGEN 38.2 mg/dL (7-18); MAGNESIUM 2.2 mg/dL (1.8-2.4)
[2020-02-12 14:06] LABS: CREATININE 1.6 mg/dL (0.55-1.3)
[2020-02-12 14:08] LABS: BILIRUBIN,TOTAL 0.5 mg/dL (0.2-1); TOT PROT 8.2 g/dl (6.4-8.2)
[2020-02-12 14:11] LABS: N-TERMINAL BNP 1646.2 pg/ml (5-450)
[2020-02-12 14:50] LABS: BILIRUBIN,DIRECT 0.2 mg/dL (0.0-0.2)
[2020-02-12] MEDS ORDERED: DEXAMETHASONE SOD PHOSPHATE 4 MG/1 ML VIAL IVPUSH ONE (14:52)
[2020-02-12] MEDS ORDERED: FUROSEMIDE 40 MG/4 ML INJECTABLE VIAL IVPUSH ONE (14:52)
[2020-02-12] MEDS ORDERED: DEXAMETHASONE SOD PHOSPHATE 4 MG/1 ML VIAL ONE (14:56)
[2020-02-12] MEDS ORDERED: FUROSEMIDE 40 MG/4 ML INJECTABLE VIAL ONE (14:57)
[2020-02-12] MEDS ORDERED: DEXAMETHASONE SOD PHOSPHATE 10 MG/1 ML VIAL ONE (14:58)
[2020-02-12] MEDS ORDERED: APIXABAN 5 MG TABLET ONE (22:23)
[2020-02-12] MEDS ORDERED: ATORVASTATIN CA 40 MG TABLET (FP) ONE (22:24)
[2020-02-12] MEDS: ATORVASTATIN CA 40 MG TABLET (FP) PO SCH (22:26)
[2020-02-12] MEDS: APIXABAN 5 MG TABLET PO SCH (22:26)
[2020-02-13] MEDS ORDERED: FLU VACCINE (FLULAVAL) PF 60 MCG/0.5 ML SYRINGE 2020-2021 IM ONE (04:59)
[2020-02-13] MEDS ORDERED: PNEUMOC 13-VAL CONJ-DIP CRM/PF 0.5 ML DISP.SYRIN IM ONE (04:59)
[2020-02-13 08:04] LABS: BASO % 0.7 % (0-2.0); EOS % 0.2 % (0-4.5); HEMATOCRIT 46.1 % (35.4-49); HEMOGLOBIN 15.5 GM/dL (11.7-16.9); LYMPH % 11.2 % (8-40); MCH 31.3 pg (25.7-33.7); MCHC 33.6 g/dl (32.0-35.9); MEAN CELL VOLUME 93.2 fl (80-96); MEAN PLT VOLUME 9.1 fl (7.5-11.1); MONO % 5.2 % (3.8-10.2); NEUT % 82.7 % (42.8-82.8); PLATELET COUNT 210 K/MM3 (134-434); RBC 4.95 M/mm3 (4.00-5.60); WHITE BLOOD COUNT 10.8 K/mm3 (4.0-10.0)
[2020-02-13 08:10] LABS: INR 1.4 (0.83-1.09)
[2020-02-13 08:12] LABS: ACTIVATED PTT 35.9 SECONDS (25.2-36.5)
[2020-02-13 08:20] LABS: BLOOD UREA NITROGEN 35.7 mg/dL (7-18); CALCIUM 9.7 mg/dL (8.5-10.1); MAGNESIUM 2.2 mg/dL (1.8-2.4)
[2020-02-13 08:21] LABS: ALBUMIN 3.1 g/dl (3.4-5.0)
[2020-02-13 08:24] LABS: CREATININE 1.5 mg/dL (0.55-1.3); PHOSPHOROUS 4.1 mg/dL (2.5-4.9)
[2020-02-13 08:25] LABS: BILIRUBIN,TOTAL 0.7 mg/dL (0.2-1); TOT PROT 8.3 g/dl (6.4-8.2)
[2020-02-13] MEDS ORDERED: FUROSEMIDE 40 MG/4 ML INJECTABLE VIAL IVPUSH SCH (10:00)
[2020-02-13] MEDS: predniSONE 20 MG TABLET (UD) PO SCH (10:26)
[2020-02-13] MEDS: APIXABAN 5 MG TABLET PO SCH ×2 (10:27→22:18)
[2020-02-13] MEDS: INDOMETHACIN 50 MG CAPSULE PO SCH (22:18)
[2020-02-13] MEDS: ATORVASTATIN CA 40 MG TABLET (FP) PO SCH (22:18)
[2020-02-14] MEDS: INDOMETHACIN 50 MG CAPSULE PO SCH ×2 (05:27→23:06)
[2020-02-14 08:03] LABS: BASO % 0.3 % (0-2.0); EOS % 0.2 % (0-4.5); HEMATOCRIT 46.7 % (35.4-49); LYMPH % 13.8 % (8-40); MCH 31.8 pg (25.7-33.7); MCHC 34.2 g/dl (32.0-35.9); MEAN CELL VOLUME 92.9 fl (80-96); MEAN PLT VOLUME 9.1 fl (7.5-11.1); MONO % 6.5 % (3.8-10.2); NEUT % 79.2 % (42.8-82.8); PLATELET COUNT 222 K/MM3 (134-434); RBC 5.03 M/mm3 (4.00-5.60); RDW 14.1 % (11.9-15.9); WHITE BLOOD COUNT 12.6 K/mm3 (4.0-10.0)
[2020-02-14 08:37] LABS: ALBUMIN 3.3 g/dl (3.4-5.0); BLOOD UREA NITROGEN 41.3 mg/dL (7-18); CALCIUM 9.7 mg/dL (8.5-10.1); MAGNESIUM 2.2 mg/dL (1.8-2.4)
[2020-02-14 08:40] LABS: CREATININE 1.6 mg/dL (0.55-1.3)
[2020-02-14 08:42] LABS: BILIRUBIN,TOTAL 0.6 mg/dL (0.2-1); TOT PROT 8.3 g/dl (6.4-8.2)
[2020-02-14] MEDS: ASPIRIN COATED 81 MG TABLET.EC PO SCH (09:49)
[2020-02-14] MEDS: APIXABAN 5 MG TABLET PO SCH ×2 (09:56→23:06)
[2020-02-14] MEDS: SULFAMETHOXAZOLE/TRIMETHOPRIM 800MG/160MG D.S. TABLET PO SCH ×2 (09:56→23:06)
[2020-02-14] MEDS: predniSONE 20 MG TABLET (UD) PO SCH (09:57)
[2020-02-14 10:31] LABS: PLATELET ESTIMATE NORMAL
[2020-02-14] MEDS: CHOLECALCIFEROL (VIT D3) 1,000 UNIT (25 MCG) TABLET PO SCH (11:45)
[2020-02-14] MEDS: ZINC SULFATE 220 MG CAPSULE (FP) PO SCH ×2 (11:45→23:06)
[2020-02-14] MEDS: ASCORBIC ACID 500 MG TABLET (FP) PO SCH ×2 (11:45→23:06)
[2020-02-14] MEDS ORDERED: ALBUTEROL SO4 2.5/IPRATROPIUM 0.5 INH SOL 3 ML VIAL.NEB. NEB PRN (17:20)
[2020-02-14] MEDS ORDERED: PT OWN MED DRAWER 7, Y5N ONE (22:48)
[2020-02-14] MEDS: ATORVASTATIN CA 40 MG TABLET (FP) PO SCH (23:06)
[2020-02-14] MEDS: CARBAMIDE PEROXIDE 6.5% OTIC 15 ML BOTTLE AU SCH (23:07)
[2020-02-15] MEDS: INDOMETHACIN 50 MG CAPSULE PO SCH ×4 (05:18→21:59)
[2020-02-15 08:25] LABS: BASO % 0.4 % (0-2.0); EOS % 0.1 % (0-4.5); HEMATOCRIT 47.8 % (35.4-49); HEMOGLOBIN 15.9 GM/dL (11.7-16.9); LYMPH % 14.4 % (8-40); MCH 31.1 pg (25.7-33.7); MCHC 33.3 g/dl (32.0-35.9); MEAN CELL VOLUME 93.5 fl (80-96); MEAN PLT VOLUME 9.4 fl (7.5-11.1); MONO % 5.8 % (3.8-10.2); NEUT % 79.3 % (42.8-82.8); PLATELET COUNT 210 K/MM3 (134-434); RBC 5.11 M/mm3 (4.00-5.60); WHITE BLOOD COUNT 11.1 K/mm3 (4.0-10.0)
[2020-02-15 08:37] LABS: CALCIUM 9.6 mg/dL (8.5-10.1)
[2020-02-15 08:38] LABS: ALBUMIN 3.2 g/dl (3.4-5.0); BLOOD UREA NITROGEN 51.7 mg/dL (7-18)
[2020-02-15 08:40] LABS: MAGNESIUM 2.5 mg/dL (1.8-2.4)
[2020-02-15 08:41] LABS: CREATININE 1.7 mg/dL (0.55-1.3)
[2020-02-15 08:42] LABS: BILIRUBIN,TOTAL 0.5 mg/dL (0.2-1); TOT PROT 8.1 g/dl (6.4-8.2)
[2020-02-15] MEDS: SULFAMETHOXAZOLE/TRIMETHOPRIM 800MG/160MG D.S. TABLET PO SCH ×2 (09:32→21:58)
[2020-02-15] MEDS: CHOLECALCIFEROL (VIT D3) 1,000 UNIT (25 MCG) TABLET PO SCH (09:32)
[2020-02-15] MEDS: ZINC SULFATE 220 MG CAPSULE (FP) PO SCH ×2 (09:32→21:58)
[2020-02-15] MEDS: ASCORBIC ACID 500 MG TABLET (FP) PO SCH ×2 (09:32→21:57)
[2020-02-15] MEDS: CARBAMIDE PEROXIDE 6.5% OTIC 15 ML BOTTLE AU SCH ×2 (09:32→21:58)
[2020-02-15] MEDS: ASPIRIN COATED 81 MG TABLET.EC PO SCH (09:32)
[2020-02-15] MEDS: APIXABAN 5 MG TABLET PO SCH ×2 (09:32→21:57)
[2020-02-15] MEDS: SODIUM CHLORIDE 1,000 ML IV SCH (09:35)
[2020-02-15] MEDS ORDERED: PT OWN MED DRAWER 7, Y5N ONE ×2 (16:56→21:41)
[2020-02-15] MEDS: ATORVASTATIN CA 40 MG TABLET (FP) PO SCH (21:57)
[2020-02-15] MEDS ORDERED: MELATONIN 5 MG TABLETS PO ONE (22:24)
[2020-02-16] MEDS ORDERED: PT OWN MED DRAWER 7, Y5N ONE (06:15)
[2020-02-16] MEDS: INDOMETHACIN 50 MG CAPSULE PO SCH ×2 (07:47→14:25)
[2020-02-16 09:07] LABS: BASO % 1.1 % (0-2.0); EOS % 5.7 % (0-4.5); HEMATOCRIT 43.5 % (35.4-49); HEMOGLOBIN 14.6 GM/dL (11.7-16.9); LYMPH % 18.2 % (8-40); MCH 31.6 pg (25.7-33.7); MCHC 33.6 g/dl (32.0-35.9); MEAN CELL VOLUME 94.1 fl (80-96); MEAN PLT VOLUME 9.1 fl (7.5-11.1); MONO % 7.8 % (3.8-10.2); NEUT % 67.2 % (42.8-82.8); PLATELET COUNT 177 K/MM3 (134-434); RBC 4.63 M/mm3 (4.00-5.60); RDW 13.9 % (11.9-15.9); WHITE BLOOD COUNT 9.1 K/mm3 (4.0-10.0)
[2020-02-16 09:24] LABS: ALBUMIN 2.9 g/dl (3.4-5.0); BLOOD UREA NITROGEN 49.6 mg/dL (7-18); CALCIUM 8.7 mg/dL (8.5-10.1); MAGNESIUM 2.5 mg/dL (1.8-2.4)
[2020-02-16 09:29] LABS: BILIRUBIN,TOTAL 1.3 mg/dL (0.2-1); TOT PROT 7.1 g/dl (6.4-8.2)
[2020-02-16] MEDS: ASCORBIC ACID 500 MG TABLET (FP) PO SCH ×2 (10:03→21:24)
[2020-02-16] MEDS: SULFAMETHOXAZOLE/TRIMETHOPRIM 800MG/160MG D.S. TABLET PO SCH ×2 (10:03→21:24)
[2020-02-16] MEDS: ASPIRIN COATED 81 MG TABLET.EC PO SCH (10:04)
[2020-02-16] MEDS: APIXABAN 5 MG TABLET PO SCH ×2 (10:04→21:24)
[2020-02-16] MEDS: CHOLECALCIFEROL (VIT D3) 1,000 UNIT (25 MCG) TABLET PO SCH (10:04)
[2020-02-16] MEDS: CARBAMIDE PEROXIDE 6.5% OTIC 15 ML BOTTLE AU SCH ×2 (10:05→21:41)
[2020-02-16] MEDS: SODIUM CHLORIDE 1,000 ML IV SCH ×2 (10:05→14:26)
[2020-02-16] MEDS: ZINC SULFATE 220 MG CAPSULE (FP) PO SCH ×2 (10:07→21:24)
[2020-02-16] MEDS: ATORVASTATIN CA 40 MG TABLET (FP) PO SCH (21:24)
[2020-02-17 09:21] LABS: BASO % 0.8 % (0-2.0); EOS % 14.7 % (0-4.5); HEMATOCRIT 44.2 % (35.4-49); HEMOGLOBIN 14.9 GM/dL (11.7-16.9); LYMPH % 14.2 % (8-40); MCH 31.7 pg (25.7-33.7); MCHC 33.6 g/dl (32.0-35.9); MEAN CELL VOLUME 94.1 fl (80-96); MEAN PLT VOLUME 9.5 fl (7.5-11.1); MONO % 6.7 % (3.8-10.2); NEUT % 63.6 % (42.8-82.8); PLATELET COUNT 164 K/MM3 (134-434); RDW 13.9 % (11.9-15.9)
[2020-02-17] MEDS: ZINC SULFATE 220 MG CAPSULE (FP) PO SCH (09:31)
[2020-02-17] MEDS: CHOLECALCIFEROL (VIT D3) 1,000 UNIT (25 MCG) TABLET PO SCH (09:31)
[2020-02-17] MEDS: ASPIRIN COATED 81 MG TABLET.EC PO SCH (09:31)
[2020-02-17] MEDS: ASCORBIC ACID 500 MG TABLET (FP) PO SCH (09:31)
[2020-02-17] MEDS: APIXABAN 5 MG TABLET PO SCH (09:31)
[2020-02-17] MEDS: CARBAMIDE PEROXIDE 6.5% OTIC 15 ML BOTTLE AU SCH (09:32)
[2020-02-17 09:57] LABS: CALCIUM 8.8 mg/dL (8.5-10.1)
[2020-02-17 09:58] LABS: ALBUMIN 2.9 g/dl (3.4-5.0); BLOOD UREA NITROGEN 44.9 mg/dL (7-18); MAGNESIUM 2.3 mg/dL (1.8-2.4)
[2020-02-17 10:01] LABS: BILIRUBIN,TOTAL 0.6 mg/dL (0.2-1); CREATININE 1.6 mg/dL (0.55-1.3)
[2020-02-17 10:02] LABS: TOT PROT 7.1 g/dl (6.4-8.2)
[2020-02-17 15:08] VITALS: BMI 25.7
[2020-02-17 15:35] VITALS: BP 117/55; PULSE 62
[2020-02-17 17:26] VITALS: TEMP 97.9
== END 2020-02-17 17:40 | disposition home or self-care (01) | DRG 868 ==
LOC: JER 11:10 → JERBED 16:43 → J7W 02-13 04:43
PROVIDERS: ADMIT Internal Medicine; ATTEND Nurse Practitioner Acute Care
DX: B94.8 Sequelae of other specified infectious and parasitic diseases (principal); J84.9 Interstitial pulmonary disease, unspecified; I50.32 Chronic diastolic (congestive) heart failure; I48.92 Unspecified atrial flutter; N39.0 Urinary tract infection, site not specified; N17.9 Acute kidney failure, unspecified; I11.0 Hypertensive heart disease with heart failure; E78.5 Hyperlipidemia, unspecified; R09.02 Hypoxemia; M10.9 Gout, unspecified; R73.03 Prediabetes; I48.91 Unspecified atrial fibrillation; E86.0 Dehydration
CPT/HCPCS: 36415; 71045-TC-FY; 80053; 81003; 82248; 82550; 82728; 82803; 83036; 83605; 83615; 83735; 83880; 84100; 84484; 85025; 85379; 85610; 85730; 86140; 86480; 86769; 87040; 87086; 87186; 87449; 87804; 87899; 90670; 93005; 93010; 94761; 97116-GP; 97161-GP; 99285-25; C9803; G0008; G0009; Q2036; U0003